=== PATIENT | male | born 1955 | race Caucasian/White ===

== ENCOUNTER 2016-07-30 22:32 | Inpatient (IN) | payer OTHER ==
[~2016-07-30] VITALS: Ht 177.8 cm; Wt 107.5 kg
[~2016-07-30 22:32] MED LIST: ESOM40CA41 PO; FURO40TA4 PO; INSU100V28 SUBQ; LISI-567 PO; LOVA10TA PO; METF-496 PO; MULT-1018 PO; NPH,100V11 SUBQ; TOP100 PO; UBID100C25 PO; WARF6TAB6 PO; [UNRECOGNIZED DRUG - OTHER]
[2016-07-30 22:35] VITALS: BP 156/82; PULSE 76; RESP 20; O2SAT 98
[2016-07-30 23:19] LABS: BASOPHILS % (AUTO) 0.8 % (0-3); EOSINOPHILS % (AUTO) 4.6 % (0-5); MONOCYTES % (AUTO) 14.1 % (4-12); Mean Corpuscular Hemoglobin 25.9 pg (27.0-35.0); Mean Corpuscular Volume 80.4 fL (81-100); NEUTROPHILS % (AUTO) 62.6 % (40-74); Platelet Count 76 bil/L (150-400)
--- NOTE | 2016-07-31 01:03 | ED.REPORT ---
HPI-Extremity Problem Lower Date of Service Jul 31, 2016 ED Provider: Nain Walker MD A 60 year old male with a history of insulin dependent diabetes, hypertension, aortic valve replacement, and quadruple bypass surgery presents to the ED complaining of right second toe pain and redness. The pt hit his foot against a ladder in 04/2016, and the toe has been painful since. It has been red, but became extremely red and swollen tonight. The pt denies vomiting or fever. He also denies any history of ulcer in his feet. Nursing Notes Stated Complaint: R FOOT/TOE INFECTION Chief Complaint: Extremity Trauma Nursing Notes Reviewed: Yes Allergies: Coded Allergies: No Known Allergies (Verified Allergy, Unknown, 10/05/15) Uncoded Allergies: crab/lobster (Allergy, Severe, Shortness of Breath, 10/05/15) Scheduled Esomeprazole Magnesium (Nexium) 40 Mg Capsule.dr 40 MG PO BID Furosemide (Furosemide) 40 Mg Tablet 80 MG PO HOLDING Gabapentin (Gabapentin) 100 Mg Capsule 100 MG PO DAILY Insulin Regular, Human (HUMulin-R U100 Insulin Vial) 100 Unit/1 Ml Vial 30-40 UNITS SUBQ BIDAC sliding scale Lisinopril (Lisinopril) 20 Mg Tablet 20 MG PO DAILY Lovastatin (Lovastatin) 10 Mg Tablet 10 MG PO Q48 HRS Metformin ER (Metformin ER) 1,000 Mg Tablet 1,000 MG PO BID Metoprolol Succinate ER (Toprol XL) 100 Mg Tabcr 100 MG PO BID Multivitamin (Multi Vitamin Daily) 1 Each Tablet 1 EACH PO DAILY NPH, Human Insulin Isophane (HUMulin-N U100 Insulin Vial) 100 Unit/1 Ml Vial 40 UNIT SUBQ BID-INSULIN General Time Seen by MD: 01:03 Chief Complaint Toe injury right 2 Hx Obtained From: Patient, Spouse Arrived By: Walk-in Onset Occurred: More than a week ago... Symptom Duration: Since onset Recent Healthcare: Recent doctor visit, Recent hospitalization Similar Sx Previous: No Past Medical History Past Medical History non-alcoholic cirrhosis Reports: Coronary artery disease, Diabetes mellitus (insulin dependent), Hyperlipidemia, Hypertension Past Surgical History colon repair after a tear, gastric lap band coronary bypass graft surgery Reports: CABG, Cholecystectomy Reports: Carpal tunnel, Gastric bypass Family History Reports: Coronary artery disease, Diabetes mellitus, Stroke Smoking History Never Smoker Social History Alcohol Use: Denies alcohol use Drug Use: Denies drug use Other Social History: Good social support, Lives alone 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 Ambulatory Status Independent Review of Systems Review of Systems Note: redness of right second toe Constitutional: Denies: Fever Musculoskeletal: Reports: Extremity pain (right foot), Extremity swelling, Denies: Neck pain Skin: Denies Rash Complete sys rev & neg: except as marked. Respiratory: Denies: Non-productive cough, Shortness of breath Cardiovascular: Denies: Chest pain GI: Denies: Abdominal pain, Nausea Physical Exam Initial Vital Signs Vital Signs (First) Date Time Temp Pulse Resp B/P Pulse Ox O2 Delivery O2 Flow Rate FiO2 07/30/16 22:35 36.7 76 20 156/82 98 Room Air Initial VS: Reviewed Lower Extremity / Pelvis / MS: Atraumatic, Full range of motion erythematous right second phalanx diffuse with purulent drainage over the mid phalanx General/Constitutional: Awake, Alert Respiratory / Chest: Atraumatic, Breath sounds = bilat, No respiratory distress harsh S2, left upper sternal border Cardiovascular: Heart rate NL, Regular rhythm, Heart sounds NL Skin: Atraumatic, Color NL, No rash, Warm, Dry Neurologic: Oriented X3, Speech NL, No motor deficits, No sensory deficits Head / Eyes: Atraumatic, Normocephalic, PERRL, EOMI ENT: Atraumatic, Airway patent, Mucous membranes moist Neck: Atraumatic, Supple, Full range of motion Abdomen: Atraumatic, Soft, Non-tender Back: Atraumatic, Full range of motion Upper Extremity / MS: Atraumatic, Full range of motion Psychiatric: Affect NL, Mood NL Interpretation & Diagnostics Lab Results Interpretation Result Diagram: 07/31/165 07/31/165 Test 07/30/16 23:08 Prothrombin Time 14.5sec (8.1-12.5) Prothromb Time International Ratio 1.35ratio Total Bilirubin 0.8mg/dL (0.0-1.2) Aspartate Amino Transf (AST/SGOT) 23U/L (0-50) Alanine Aminotransferase (ALT/SGPT) 12U/L (0-44) Alkaline Phosphatase 136U/L (25-160) Total Protein 8.2g/dL (6.4-8.4) Albumin 3.2g/dL (3.4-5.0) Hold Mcguire Top Tube Received (Received) X-Ray Interpretation Xray Interpretation: no osteomyelitis X-Ray Ordered: Foot right Interpretation / Wet Read by: Wet read ED physician Re-Eval/Medical Decision Med Decision/Clinical Course 60-year-old male history of diabetes, quadruple bypass, aortic valve replacement examining with right second toe infection times one day. Diffuse erythema, swelling, discharge. Discharge sent for culture. Discussed with podiatry Dr. Erazo who agreed with admission and will see patient in the morning. Patient was started on vancomycin and Zosyn. Blood cultures sent prior to antibiotics. Xray obtained. Source of Hx: Old records Re-Evaluation/Progress : Time of Eval: 01:03 Patient Status: Condition improved Re-Evaluation/Progress Note: Pt informed of the plan for admission during the initial interview. The pt understands and agrees with the plan. All questions are addressed at this time. Consultation #1: Referral / Consult Name: Vania Ulloa MD Consulted With: Hospitalist Call Returned at: 01:44 Service Line Layer: Agrees with eval, Agrees with plan, Accepts admit Note: Spoke with Dr. Ulloa, hospitalist, regarding pt's case. Dr. Ulloa agrees with the evaluation and agrees to admit the pt. Consultation #2: Referral / Consult Name: Myles Erazo DP Call Returned at: 01:47 Service Line Layer: Will see patient, Agrees with eval, Agrees with plan Note: Consulted with Dr. Erazo, podiatry, regarding pt's case. Dr. Erazo agrees with the evaluation and plan. He will see the pt in the morning. Counseled Regarding: Diagnosis, Lab results, Need for admission Discharge & Departure Impression: Primary Impression: Diabetic foot infection Disposition: ADMITTED TO HOSPITAL Discharge Condition All VS Reviewed: Yes Condition: Stable Referrals: Patt Dutta MD (PCP) Ruma Attestation Portions of this note were transcribed by Alireza Mayberry. I, Dr. Walker personally performed the history, physical exam and medical decision-making; I reviewed and confirmed the accuracy of the information in the transcribed note. Signed by: Ruma Flores, 07/31/2016 and 01:41. copies to: TraPatt MD, Ben M MD Jul 31, 2016 01:03 ALIREZA MAYBERRY Jul 31, 2016 01:53 8.2g/dL (6.4-8.4) Albumin 3.2g/dL (3.4-5.0) Hold Mcguire Top Tube Received (Received) X-Ray Interpretation Xray Interpretation: no osteomyelitis X-Ray Ordered: Foot right Interpretation / Wet Read by: Wet read ED physician Re-Eval/Medical Decision Med Decision/Clinical Course 60-year-old male history of diabetes, quadruple bypass, aortic valve replacement examining with right second toe infection times one day. Diffuse erythema, swelling, discharge. Discharge sent for culture. Discussed with podiatry Dr. Erazo who agreed with admission and will see patient in the morning. Patient was started on vancomycin and Zosyn. Blood cultures sent prior to antibiotics. Xray obtained. Source of Hx: Old records Re-Evaluation/Progress : Time of Eval: 01:03 Patient Status: Condition improved Re-Evaluation/Progress Note: Pt informed of the plan for admission during the initial interview. The pt understands and agrees with the plan. All questions are addressed at this time. Consultation #1: Referral / Consult Name: Vania Ulloa MD Consulted With: Hospitalist Call Returned at: 01:44 Service Line Layer: Agrees with eval, Agrees with plan, Accepts admit Note: Spoke with Dr. Ulloa, hospitalist, regarding pt's case. Dr. Ulloa agrees with the evaluation and agrees to admit the pt. Consultation #2: Referral / Consult Name: Myles Erazo DPM Call Returned at: 01:47 Service Line Layer: Will see patient, Agrees with eval, Agrees with plan Note: Consulted with Dr. Erazo, podiatry, regarding pt's case. Dr. Erazo agrees with the evaluation and plan. He will see the pt in the morning. Counseled Regarding: Diagnosis, Lab results, Need for admission Discharge & Departure Impression: Primary Impression: Diabetic foot infection Disposition: ADMITTED TO HOSPITAL Discharge Condition All VS Reviewed: Yes Condition: Stable Referrals: Patt Dutta MD (PCP) Scribe Attestation Portions of this note were transcribed by Alireza Mayberry. I, Dr. Walker personally performed the history, physical exam and medical decision-making; I reviewed and confirmed the accuracy of the information in the transcribed note. Signed by: Ruma Flores, 07/31/2016 and 01:41. copies to: Patt Dutta MD, Ben M MD Jul 31, 2016 01:03 ALIREZA MAYBERRY Jul 31, 2016 01:53
[2016-07-31] MEDS ORDERED: Alum-Mag Hydrox-Simeth 30 mL Suspension PO PRN (01:55)
[2016-07-31] MEDS ORDERED: Ondansetron 2 mg/mL 2 mL Inj IVPUSH PRN (01:55)
[2016-07-31] MEDS ORDERED: 0.9% Sodium Chloride 1,000 ML IV ONE (02:02)
[2016-07-31] MEDS ORDERED: Piperacillin-Tazo 3.375 Gm Inj 3.375 GM in Dextrose 5% Minibag Plus 50 ML IV ONE ×2 (02:05→07:00)
[2016-07-31] MEDS ORDERED: Vancomycin Dose per Pharmacist XX ONE (02:05)
[2016-07-31] MEDS ORDERED: Polyethylene Glycol (PEG) 17 Gm Powder PO PRN (02:20)
[2016-07-31 02:59] VITALS: BP 148/80; PULSE 76; RESP 20; O2SAT 97
[2016-07-31 03:19] VITALS: BP 170/91; PULSE 76; RESP 18; O2SAT 98
--- NOTE | 2016-07-31 03:21 | PCM.HPMED ---
Subjective Date of Service Jul 31, 2016 Primary Provider: Admitting Physician: Vania Ulloa MD Primary Care Physician: Patt Dutta MD Attending Physician: Vania Ulloa MD Chief Complaint: Infected Toe History of Present Illness: Castro is a 60 yo M with history of CAD s/p CABG, DM2 on insulin, non-alcoholic cirrhosis, fatty liver disease, and recent TAVR who presented to the ED with complaint of increase swelling and drainage from his right 2nd toe. Patient reports that he stubbed this toe on a ladder in April. He was evaluated at and given antibiotics then. He reports the toe has been baseline mildly red since and has not really bothered him, but today, while going to bed, he noticed that it was much more inflamed and there was yellowish drainage from the toe. He was worried, so he came in for evaluation. He denies any associated fevers, chills, acute pain in any other joints, CP, SOB, or constitutional symptoms. He had a recent TAVR for Aortic Stenosis. He also had a recent DVT of his left leg and that is why he is on Warfarin for anticoagulation. He had an MRI of his left hip yesterday for chronic hip pain and was told to withhold his Warfarin a week ago. In the ED, his vitals were stable and his CBC and CMP were per his baseline values. He had a right foot xray that was not significant for osteomyelitis per ED physician read. Dr. Erazo, podiatry, was consulted and patient was started on IV Vancomycin and Zosyn. Allergies Coded Allergies: No Known Allergies (Verified Allergy, Unknown, 10/05/15) Uncoded Allergies: crab/lobster (Allergy, Severe, Shortness of Breath, 10/05/15) Home Medications MEDICATIONS: 1. NPH insulin 30 units b.i.d. 2. Regular insulin 30-40 units before meals per sliding scale. 3. Lisinopril 20 mg daily. 4. Lovastatin 10 mg every 48 hours. 5. Toprol-XL 100 mg b.i.d. 6. Furosemide 40 mg daily. 7. Nexium 40 mg b.i.d. 8. Metformin 1000 mg b.i.d. 9. Gabapentin 600 mg at bedtime. 10. [place] 5-325 mg every 6 hours p.r.n. PMH 1. Type 2 diabetes, on metformin and insulin. 2. Hypertension. 3. Dyslipidemia. 4. Aortic stenosis, s/p transarterial valve replacement on January 18 at [facility]. 5. Chronic kidney disease. 6. Cirrhosis of the liver due to nonalcoholic fatty liver disease. 7. Chronic iron-deficiency anemia. 8. Coronary artery disease s/p CABG 9. Thrombocytopenia 10. EZ Surgical History 1. Four-vessel CABG in August 2008. 2. Exploratory laparotomy with partial colectomy in 2001 for perforated acute diverticulitis. 3. Incisional hernia repair in 2002. 4. Cholecystectomy in 1999. 5. TAVR on January 19, 2016 6. Gastric Lap Band Family History SOCIAL HISTORY: He lives in [place]. He does not drink alcohol. 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 Social History Hx Alcohol Use: No (every 6 months) Hx Substance Use: No Hx Tobacco Use: No Smoking Status: Never Smoker Living Arrangement: with Family Exam Vital Signs Vital Sign - Last Date Time Temp Pulse Resp B/P Pulse Ox O2 Delivery O2 Flow Rate FiO2 07/30/16 22:35 36.7 76 20 156/82 98 Room Air Exam Gen: Obese male in NAD, Alert and Oriented x3 Neck: Soft, non-tender, No JVD noted CV: RRR with systolic murmur noted Resp: CTAB, no w/r/c Abd: Obese, moderately distended, firm but non-tender, large midline scar. MSK: MS Grossly intact and equal Extremities: Erythema, swelling of right 2nd toe with serosanguineous discharge from pinpoint ulcer on dorsum Neuro: Decreased sensation in stocking distribution Psych: Appropriate mood and affect Lab and Diagnostics Result Diagram: 07/30/16230707/30/162307 Assessment & Plan Castro is a 60 yo M with history of CAD s/p CABG, DM2 on insulin, non-alcoholic cirrhosis, fatty liver disease, and recent TAVR who presented to the ED with complaint of acute increase in swelling and drainage from his right 2nd toe. Diabetic Foot Ulcer - Right 2nd Toe -Due to previous trauma -Dr. Erazo will assess patient in the morning -Non-weight bearing of RLE -IV Vancomycin and IV Zosyn started in the ED on 07/31/16 DM2, Insulin dependent, with neuropathy -Uncontrolled Diabetes. Last A1c in October was 10.3 -Will hold Metformin in anticipation of any surgical procedure -Will initiate Lispro High dose Sliding Scale. Patient at home is on Humulin N 30 units BID and Humulin R 30-40 units S/S S/P TAVR -Stable, currently on Warfarin for anticoagulation due to DVT after the procedure -Will hold Warfarin in anticipation of any procedure CAD s/p CABG -Stable -Will Continue Metoprolol Thrombocytopenia -Stable -Recent evaluation with Heme/Onc, Due to Cirrhosis and fatty liver disease Anti-nausea prn Pain Evaluation: Adequate Pain Control Resuscitation Status: CPR: Attempt Resuscitation Attending Statement Pt seen and examined by myself and agree with above plan. Delfino Martin DO Jul 31, 2016 02:50 Vania Ulloa MD Aug 01, 2016 06:11
[2016-07-31] MEDS: 0.9% Sodium Chloride 1,000 ML IV SCH ×4 (03:37→22:20)
--- NOTE | 2016-07-31 03:38 | NUR ---
admit note: pt. admitted for diabetic foot ulcer right second toe, red, shiny, inflamed, pt. has no c/o pain, blood glucose was 310 in ER.
[2016-07-31] MEDS ORDERED: Glucose 40% Oral Gel 15 Gm Tube PO PRN (03:40)
[2016-07-31] MEDS ORDERED: HYDROmorphone 0.5 mg/0.5 mL iSecure Syringe IVPUSH PRN (03:40)
[2016-07-31 04:01] LABS: INR 1.35 ratio
[2016-07-31] MEDS ORDERED: GABA-500 PO (04:22)
[2016-07-31 06:03] LABS: BASOPHILS % (AUTO) 0.7 % (0-3); EOSINOPHILS % (AUTO) 5.4 % (0-5); MONOCYTES % (AUTO) 15.6 % (4-12); Mean Corpuscular Hemoglobin 25.6 pg (27.0-35.0); Mean Corpuscular Volume 80.6 fL (81-100); NEUTROPHILS % (AUTO) 62.7 % (40-74); Platelet Count 85 bil/L (150-400)
[2016-07-31] MEDS: Insulin GLARgine 100 Unit/mL Syringe SUBQ SCH ×2 (08:19→21:47)
[2016-07-31] MEDS: Insulin LISPRO 300 Unit/3 mL Inj SUBQ SCH ×4 (08:19→21:47)
[2016-07-31 08:32] VITALS: BP 130/75; PULSE 87; RESP 18; O2SAT 96
[2016-07-31 08:53] LABS: APPEARANCE,URINE CLEAR (CLEAR,HAZY); COLOR,URINE YELLOW (YELLOW)
[2016-07-31 08:58] LABS: OCCULT BLOOD,URINE SMALL (NEGATIVE); PH,URINE 5.5 (5.0-8.0); UROBILINOGEN,URINE NORMAL (NORMAL)
--- NOTE | 2016-07-31 10:01 | DRSVH ---
PROCEDURE: X-RAY RIGHT FOOT COMPLETE, MINIMUM THREE VIEWS ([id number]) INDICATIONS: wound TECHNIQUE: 3 views of the foot were acquired. COMPARISON: None. FINDINGS: Bones: No fractures or dislocations. Degenerative change at the first MTP joint is present, and als o at the first interphalangeal joint. The area of current clinical concern is at the third digit. N o suspicious bony lesions. Soft tissues: No tibiotalar joint effusion. Achilles tendon appears normal. IMPRESSION: The patient reports possible discharge from third digit, and no underlying foreign body o r abscess/osteomyelitis is found. 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 Dictated by: Trevor Yanez M.D. on 07/31/2016 at 9:58 Approved by: Trevor Yanez M.D. on 07/31/2016 at 9:58
[2016-07-31] MEDS: Vancomycin Dose per Pharmacist XX SCH (10:12)
--- NOTE | 2016-07-31 13:00 | PCM.CHPPOD ---
Subjective Date of service Jul 31, 2016 History of Present Illness 60-year-old neuropathic diabetic male is evaluated while resting comfortably in bed with abscess and cellulitis of the right second digit. Patient states that he has been diabetic for many years but does not routinely follow up with a mental health program director. Patient states that over the past 48 hours he has noted significant color change in his right second toe and there has been some pus emanating from the second digit since yesterday. Patient denies ever having a previous ulceration or issue with either of his feet. Patient states that he does not routinely check his blood sugar however when it does it usually in the high 100s to low 200s. He denies any pain associated with his right foot x- rays taken upon presentation to the emergency department are nonconclusive for the presence of bone infection Allergy Allergies: Coded Allergies: No Known Allergies (Verified Allergy, Unknown, 10/05/15) Uncoded Allergies: crab/lobster (Allergy, Severe, Shortness of Breath, 10/05/15) Medications Esomeprazole Magnesium (Nexium) 40 Mg Capsule.dr 40 MG PO BID Furosemide (Furosemide) 40 Mg Tablet 80 MG PO HOLDING Gabapentin (Gabapentin) 100 Mg Capsule 100 MG PO DAILY Insulin Regular, Human (HUMulin-R U100 Insulin Vial) 100 Unit/1 Ml Vial 30-40 UNITS SUBQ BIDAC sliding scale Lisinopril (Lisinopril) 20 Mg Tablet 20 MG PO DAILY Lovastatin (Lovastatin) 10 Mg Tablet 10 MG PO Q48 HRS Metformin ER (Metformin ER) 1,000 Mg Tablet 1,000 MG PO BID Metoprolol Succinate ER (Toprol XL) 100 Mg Tabcr 100 MG PO BID Multivitamin (Multi Vitamin Daily) 1 Each Tablet 1 EACH PO DAILY NPH, Human Insulin Isophane (HUMulin-N U100 Insulin Vial) 100 Unit/1 Ml Vial 40 UNIT SUBQ BID-INSULIN Past Medical History Surgeries: Yes (aortic valve replacement, quad bypass, angioplasty, colon resection, gall b) Medical History: Surgical History: Social History Hx Alcohol Use: No Hx Substance Use: No Hx Tobacco Use: No Smoking Status: Never Smoker Podiatry Consult Exam Vital Signs Vital Sign - Last Date Time Temp Pulse Resp B/P Pulse Ox O2 Delivery O2 Flow Rate FiO2 07/31/16 08:32 36.5 87 18 130/75 96 Room Air Result Diagram: 07/31/16 0455 07/31/16 0455 Lab Test 07/30/16 23:08 07/31/16 03:00 07/31/16 03:35 07/31/16 04:00 Prothrombin Time 14.5sec (8.1-12.5) Prothromb Time International Ratio 1.35ratio Total Bilirubin 0.8mg/dL (0.0-1.2) Aspartate Amino Transf (AST/SGOT) 23U/L (0-50) Alanine Aminotransferase (ALT/SGPT) 12U/L (0-44) Alkaline Phosphatase 136U/L (25-160) Total Protein 8.2g/dL (6.4-8.4) Albumin 3.2g/dL (3.4-5.0) Hold Mcguire Top Tube Received (Received) Urine Color Yellow (YELLOW) Urine Appearance Clear (CLEAR,HAZY) Urine pH 5.5 (5.0-8.0) Urine Specific [place] 1.025 (1.003-1.035) Urine Protein Tracemg/dL (NEG,TRACE) Urine Glucose (UA) 500mg/dL (NEGATIVE) Urine Ketones Tracemg/dL (NEGATIVE) Urine Occult Blood Small (NEGATIVE) Urine Nitrite Negative (NEGATIVE) Urine Bilirubin Negative (NEGATIVE) Urine Urobilinogen Normalmg/dL (NORMAL) Urine Leukocyte Esterase Negative (NEGATIVE) Urine RBC 0-2/hpf (0-2) Urine WBC 0-5/hpf (0-5) Urine Epithelial Cells Occasional/hpf (NONE-MOD) Urine Crystals None seen (NONE SEEN) Urine Bacteria None/hpf (NONE-FEW) Urine Hyaline Casts None/lpf (NONE) Urine Granular Casts None seen (NONE SEEN) Urine Waxy Casts None seen (NONE SEEN) Urine Red Blood Cell Casts None seen (NONE SEEN) Urine White Blood Cell Casts None seen (NONE SEEN) Urine Mucus None seen (None Seen) Urine Trichomonas None seen (NONE SEEN) Urine Yeast None (NONE SEEN) Urinalysis Comment Urine Culture Reflexed Not indicated Hold Urine Received (Received) Test 07/31/16 04:55 White Blood Count 5.6th/mm3 (3.8-10.1) Red Blood Count 3.71mil/mm3 (4.40-5.80) Hemoglobin 9.5g/dL (13.8-17.2) Hematocrit 29.9% (41.0-50.0) Mean Corpuscular Volume 80.6fL (81-100) Mean Corpuscular Hemoglobin 25.6pg (27.0-35.0) Mean Corpuscular Hemoglobin Concent 31.8% (32.0-37.0) Red Cell Distribution Width 17.9% (12.3-15.4) Platelet Count 85bil/L (150-400) Neutrophils (%) (Auto) 62.7% (40-74) Lymphocytes (%) (Auto) 15.4% (14-46) Monocytes (%) (Auto) 15.6% (4-12) Eosinophils (%) (Auto) 5.4% (0-5) Basophils (%) (Auto) 0.7% (0-3) Sodium Level 136mEq/L (134-144) Potassium Level 4.9mEq/L (3.5-5.2) Chloride Level 94mEq/L (97-108) Carbon Dioxide Level 25mmol/L (18-29) Blood Urea Nitrogen 18mg/dL (8-27) Creatinine 1.20mg/dL (0.76-1.27) Estimat Glomerular Filtration Rate 65mL/min (>59) Glucose Level 338mg/dL (60-99) Calcium Level 8.0mg/dL (8.5-10.1) Exam General: Alert, Oriented X3, Cooperative, No Acute Distress Neuro: Strength at 5/5 x4 ext, Other (decreased epicritic sensation) Lower Extremities: Right: Edema localized Bilateral: Extremity pink Extremity warm Lower Extremity Pulses: Palpable: Left Dorsalis Pedis Left Posterior Tibal Right Dorsalis Pedis Right Posterior Tibal Podiatry WOUND : Wound Location/Description Right second digit proximal interphalangeal joint medial ulceration measures 2 mm x 2 mm with underlying purulent abscess mild malodor and erythema encompassing the entirety of the second toe. There is no exposed bone or tendon. No other open ulcerations are present Chronic dry scaly skin bilateral lower extremity Assessment & Plan Assessment Abscess/cellulitis right second digit Problems: Plan Detailed evaluation at bedside today. Abscess was noted of the right second proximal interphalangeal joint. The right second digit was prepped utilizing Betadine a stab incision was made with a #11 blade purulent drainage was noted approximately 2 mL in total. Wound cultures were taken. This wound was then copiously flushed with large amounts of normal saline until no further purulent drainage was identified. This wound was then packed with 1/4 inch iodoform packing gauze and dressed with dry sterile gauze Kerlix and a loosely applied Carlitos bandage. Continue current antibiotic therapy, consider infectious disease consultation once wound cultures have returned for outpatient antibiotic recommendation No immediate need for surgical intervention as there are no clinical signs of osteomyelitis however osteomyelitis is still of significant concern due to the proximity of this abscess to the bone Partial weightbearing to the right heel Podiatry will continue to follow for daily dressing changes. Patient will likely be stable for discharge to outpatient care within the next 24-48 hours. Robby Martinez DPM Jul 31, 2016 13:00
[2016-07-31 13:13] VITALS: BP 137/73; PULSE 75; RESP 18; O2SAT 97
--- NOTE | 2016-07-31 13:14 | PCM.CONPHA ---
Assessment/Plan Assessment/Plan Pharmacy Kinetic Dosing Vancomycin Indication: Osteomyelitis of toe Vanc goal trough: 15-20 mcg/mL Pt wt: 107.5 kg Other ABX: Zosyn Cultures: Blood = Pending SCr: 66.75 mg/dL Assessment/Plan: - Loading dose of Vancomycin 2250 mg given in ED (20mg/kg dosing) -Will continue Vancomycin 1,500 mg Q12H (15 mg/kg dosing) with trough scheduled prior to 4th dose on 08/01 @1600 Pharmacy appreciates consult and will continue to monitor. Monie Lares PharmD Jul 31, 2016 13:14
--- NOTE | 2016-07-31 16:18 | NUR ---
Social Work Brief Note: EMR reviewed. Patient is a 60 year old made admitted on 07/31/16 for diabetic foot ulcer. Patient resides in [facility] with Edith, . Patient payer as [facility] Med plan. Patient independent with needs. Per report in rounds, patient on abx and podiatry to follow. ID also consulted. Possible amputation planned. SW to follow. PLAN: Home with , pending clinical course. SW to follow with ID plans for abx and podiatry to determine if HHC needed for any wound care related needs for toe. SW to follow. Becky CHRISTIAN
[2016-07-31] MEDS ORDERED: Vancomycin Serum Trough XX ONE (16:30)
[2016-07-31 18:41] VITALS: BP 184/84; PULSE 69; RESP 18; O2SAT 97
[2016-07-31] MEDS: Piper-Tazo 3.375 Gm/50 mL D5W Minibag Plus - Q8H over 4 hrs IV SCH ×4 (21:44→22:11)
[2016-07-31 22:45] VITALS: BP 145/69; PULSE 80; RESP 18; O2SAT 93
[2016-08-01 06:15] VITALS: BP 154/74; PULSE 77; RESP 16; O2SAT 95
[2016-08-01] MEDS: Piper-Tazo 3.375 Gm/50 mL D5W Minibag Plus - Q8H over 4 hrs IV SCH ×4 (08:07→17:52)
[2016-08-01] MEDS: Vancomycin Dose per Pharmacist XX SCH (08:30)
[2016-08-01 08:51] VITALS: BP 171/97; PULSE 75; RESP 17; O2SAT 96
[2016-08-01] MEDS: Insulin GLARgine 100 Unit/mL Syringe SUBQ SCH (10:04)
[2016-08-01] MEDS: Insulin LISPRO 300 Unit/3 mL Inj SUBQ SCH (10:05)
[2016-08-01 13:20] VITALS: BP 163/84; PULSE 79; RESP 17; O2SAT 96
[2016-08-01] MEDS: MeTOProlol XL 50 mg ER24 Tablet PO SCH ×2 (13:41→22:11)
[2016-08-01] MEDS: Insulin Human REGular 300 Unit/3 mL Inj SUBQ SCH ×3 (13:42→22:00)
--- NOTE | 2016-08-01 14:36 | PCM.PNMED ---
Subjective Date of Service Aug 01, 2016 Subjective denies any pain or discomfort. denies any new issues/complaints Exam Vital Signs Vital Sign - Last Date Time Temp Pulse Resp B/P Pulse Ox O2 Delivery O2 Flow Rate FiO2 08/01/16 13:20 37.2 79 17 163/84 96 Room Air Intake and Output 07/31/16 07/31/16 08/01/16 Cumulative From/Thru 15:00 23:00 07:00 07/30/16 22:35 - 08/01/16 06:05 Intake Total 2375 ml 1348 ml 3723 ml Output Total 125 ml 400 ml 525 ml Balance -125 ml 1975 ml 1348 ml 3198 ml Intake Oral 500 ml 500 ml IV Total 1875 ml 1348 ml 3223 ml Output Urine Total 125 ml 400 ml 525 ml Urine/Stool Mix 0 ml 0 ml General: Alert, Cooperative, No Acute Distress Eyes: Scleral Anicteric Mouth: Mucous Membr Moist/[place] Neck: Supple Chest & Lungs: Chest Wall Normal, Clear to auscultation & percussion Cardiovascular: Regular Rate/Rhythm Abdomen: Non-tender, Non-distended, Normoactive bowel tones, Soft Extremities: Other (right foot in dressing) Neurological: Grossly Neurologically Intact, Normal Speech IVs and Medications Medications Reviewed: Medications were reviewed in detail Lab and Diagnostics Result Diagram: 07/31/1645407/31/16454 Assessment & Plan 60 yo M with history of CAD s/p CABG, DM2 on insulin, non-alcoholic cirrhosis, fatty liver disease, and recent TAVR who presented to the ED with complaint of acute increase in swelling and drainage from his right 2nd toe. # Acute on chronic diabetic Foot Ulcer - Right 2nd Toe - post I&D of abscess of the right second proximal interphalangeal joint on 07/31 - appreciate podiatry consult. will f/u w/ recs - c/w empiric IV Vancomycin and IV Zosyn started in the ED on 07/31/16 - f/u pending cultures # DM2, Insulin dependent, with neuropathy - Uncontrolled Diabetes. Last A1c in October was 10.3 - Continue to hold Metformin - Resume home dose Insulin - c/w Insulin Sliding Scale. # S/P TAVR - Stable, currently on Warfarin for anticoagulation due to DVT after the procedure - Resume Warfarin when OK by podiatry - c/w Lovenox while off of Warfarin and INR sub-therapeutic # CAD s/p CABG - Stable - Continue Metoprolol # Thrombocytopenia. Chronic. - Stable - Recent evaluation with Heme/Onc, Due to Cirrhosis and fatty liver disease Dispo: 1-2 days pending culture results and further podiatry recs. Resuscitation Status: CPR: Attempt Resuscitation Time spent 30 min Waqar Crawley Aug 01, 2016 14:36
[2016-08-01] MEDS: Pantoprazole 40 mg ER24 Tablet PO SCH (15:46)
--- NOTE | 2016-08-01 18:03 | PCM.PNPOD ---
Subjective Date of Service: Aug 01, 2016 Visit Information: Reason for Visit Diabetic Foot Infection Surgery/Surgery Date Post-Op Day # Date of Admission: Jul 31, 2016 at 02:15 Hospital Day # Subjective: The patient is sitting up in bed, resting comfortably. He is not in any discomfort or distress. He like to go home. Postop General: No Complaints Objective Vital Sign - Last Date Time Temp Pulse Resp B/P Pulse Ox O2 Delivery O2 Flow Rate FiO2 08/01/16 13:20 37.2 79 17 163/84 96 Room Air Intake and Output 07/31/16 07/31/16 08/01/16 Cumulative From/Thru 15:00 23:00 07:00 07/30/16 22:35 - 08/01/16 06:05 Intake Total 2375 ml 1348 ml 3723 ml Output Total 125 ml 400 ml 525 ml Balance -125 ml 1975 ml 1348 ml 3198 ml Intake Oral 500 ml 500 ml IV Total 1875 ml 1348 ml 3223 ml Output Urine Total 125 ml 400 ml 525 ml Urine/Stool Mix 0 ml 0 ml Result Diagram: 07/31/16 0455 07/31/16 0455 Lab Test 07/30/16 23:08 07/31/16 03:00 07/31/16 03:35 07/31/16 04:00 Prothrombin Time 14.5sec (8.1-12.5) Prothromb Time International Ratio 1.35ratio Total Bilirubin 0.8mg/dL (0.0-1.2) Aspartate Amino Transf (AST/SGOT) 23U/L (0-50) Alanine Aminotransferase (ALT/SGPT) 12U/L (0-44) Alkaline Phosphatase 136U/L (25-160) Total Protein 8.2g/dL (6.4-8.4) Albumin 3.2g/dL (3.4-5.0) Hold Mcguire Top Tube Received (Received) Hemoglobin A1c 8.4% (4.8-5.6) Urine Color Yellow (YELLOW) Urine Appearance Clear (CLEAR,HAZY) Urine pH 5.5 (5.0-8.0) Urine Specific [place] 1.025 (1.003-1.035) Urine Protein Tracemg/dL (NEG,TRACE) Urine Glucose (UA) 500mg/dL (NEGATIVE) Urine Ketones Tracemg/dL (NEGATIVE) Urine Occult Blood Small (NEGATIVE) Urine Nitrite Negative (NEGATIVE) Urine Bilirubin Negative (NEGATIVE) Urine Urobilinogen Normalmg/dL (NORMAL) Urine Leukocyte Esterase Negative (NEGATIVE) Urine RBC 0-2/hpf (0-2) Urine WBC 0-5/hpf (0-5) Urine Epithelial Cells Occasional/hpf (NONE-MOD) Urine Crystals None seen (NONE SEEN) Urine Bacteria None/hpf (NONE-FEW) Urine Hyaline Casts None/lpf (NONE) Urine Granular Casts None seen (NONE SEEN) Urine Waxy Casts None seen (NONE SEEN) Urine Red Blood Cell Casts None seen (NONE SEEN) Urine White Blood Cell Casts None seen (NONE SEEN) Urine Mucus None seen (None Seen) Urine Trichomonas None seen (NONE SEEN) Urine Yeast None (NONE SEEN) Urinalysis Comment Urine Culture Reflexed Not indicated Hold Urine Received (Received) Test 07/31/16 04:55 08/01/16 15:40 White Blood Count 5.6th/mm3 (3.8-10.1) Red Blood Count 3.71mil/mm3 (4.40-5.80) Hemoglobin 9.5g/dL (13.8-17.2) Hematocrit 29.9% (41.0-50.0) Mean Corpuscular Volume 80.6fL (81-100) Mean Corpuscular Hemoglobin 25.6pg (27.0-35.0) Mean Corpuscular Hemoglobin Concent 31.8% (32.0-37.0) Red Cell Distribution Width 17.9% (12.3-15.4) Platelet Count 85bil/L (150-400) Neutrophils (%) (Auto) 62.7% (40-74) Lymphocytes (%) (Auto) 15.4% (14-46) Monocytes (%) (Auto) 15.6% (4-12) Eosinophils (%) (Auto) 5.4% (0-5) Basophils (%) (Auto) 0.7% (0-3) Sodium Level 136mEq/L (134-144) Potassium Level 4.9mEq/L (3.5-5.2) Chloride Level 94mEq/L (97-108) Carbon Dioxide Level 25mmol/L (18-29) Blood Urea Nitrogen 18mg/dL (8-27) Creatinine 1.20mg/dL (0.76-1.27) Estimat Glomerular Filtration Rate 65mL/min (>59) Glucose Level 338mg/dL (60-99) Calcium Level 8.0mg/dL (8.5-10.1) Vancomycin Level Trough 16.6mcg/mL Diagnostics Microbiology specimen of the patient's right second toe abscess from yesterday shows Staphylococcus aureus, susceptibility is pending. Exam General: Alert, Oriented X3, Cooperative, No Acute Distress Lower Extremities: Right: Edema localized Bilateral: Extremity pink Extremity warm (confined to the second toe on the right) Lower Extremity Pulses: Palpable: Left Dorsalis Pedis Left Posterior Tibal Right Dorsalis Pedis Right Posterior Tibal Podiatry WOUND : Wound Location/Description Right medial second toe ulceration is consistent with a stab wound opened by Dr. Shelby hendricks yesterday. It is likely that this is a result of a callus between the second and first toes. There was a small amount of purulence expressed today after the packing was removed. A sending erythema is present approximately 2-3-4 cm at the second metatarsal head. The bone is not exposed, but it is very close to the middle phalanx on the medial side. Since the size of the abscess was so large, underlying osteomyelitis made very well be part of the overall picture. Assessment & Plan Problems: (1) Diabetic foot ulcer Qualifiers: Diabetes mellitus type: type 2 Laterality: right Qualified Code: E11.621 - Type 2 diabetes mellitus with foot ulcer Plan: The patient's open ulceration was treated with normal saline irrigation, packed with iodoform gauze and backed with normal saline moistened gauze, dry gauze, Kerlix, Carlitos wrap to the ankle. The patient will be seen again tomorrow for a dressing change and should be able to go home on oral antibiotics once susceptibility is a ready. She should be seen by me or Dr. Martinez next week, either in our clinic for wound care center. Status: Acute ICD Code: E11.621 Brit Cummings DPM Aug 01, 2016 18:03
[2016-08-01] MEDS: Insulin Human REGular (HUMulin-R) 100 Unit/mL 10 mL SUBQ SCH (18:57)
[2016-08-01 19:30] VITALS: BP 166/86; PULSE 76; RESP 18; O2SAT 96
[2016-08-01 20:15] VITALS: BP 165/79; PULSE 81; RESP 20; O2SAT 96
[2016-08-01 22:06] VITALS: BP 153/74; PULSE 81
[2016-08-01] MEDS: Insulin Human NPH 100 Unit/mL 3 mL Inj SUBQ SCH (22:13)
--- NOTE | 2016-08-01 22:35 | NUR ---
HS insulin dosing pts HS BG was 253 pt stating he would only take 30units of Humulin N not 40units also he would not take Humulin R at HS at all. followed pts instructions. gave 30units Humulin N and no Humulin R.
[2016-08-02 00:28] VITALS: BP 130/67; PULSE 83; RESP 20; O2SAT 94
[2016-08-02] MEDS: Piper-Tazo 3.375 Gm/50 mL D5W Minibag Plus - Q8H over 4 hrs IV SCH ×4 (00:42→08:31)
--- NOTE | 2016-08-02 00:44 | NUR ---
IV zosyn pts zosyn got behind r/t procedure, per pharmacy give next dose hour and half late (around 0030) then next dose half hour late then will be back on schedule.
[2016-08-02 04:25] VITALS: BP 163/84; PULSE 79; RESP 18; O2SAT 95
[2016-08-02 06:13] LABS: BASOPHILS % (AUTO) 0.7 % (0-3); EOSINOPHILS % (AUTO) 3.7 % (0-5); MONOCYTES % (AUTO) 16.4 % (4-12); Mean Corpuscular Hemoglobin 25.1 pg (27.0-35.0); Mean Corpuscular Volume 80.3 fL (81-100); Platelet Count 67 bil/L (150-400)
[2016-08-02 06:27] LABS: INR 1.43 ratio
[2016-08-02] MEDS: Insulin Human REGular 300 Unit/3 mL Inj SUBQ SCH (07:30)
[2016-08-02] MEDS: Insulin Human NPH 100 Unit/mL 3 mL Inj SUBQ SCH (08:30)
[2016-08-02] MEDS: Insulin Human REGular (HUMulin-R) 100 Unit/mL 10 mL SUBQ SCH (08:30)
[2016-08-02] MEDS: Pantoprazole 40 mg ER24 Tablet PO SCH (08:31)
[2016-08-02] MEDS: MeTOProlol XL 50 mg ER24 Tablet PO SCH (08:31)
[2016-08-02 08:58] VITALS: BP 164/88; PULSE 84; RESP 18; O2SAT 97
[2016-08-02] MEDS: Vancomycin Dose per Pharmacist XX SCH (09:04)
[2016-08-02 12:34] VITALS: BP 125/69; PULSE 77; RESP 18; O2SAT 99
[2016-08-02] MEDS ORDERED: AMOX-366 PO (13:08)
--- NOTE | 2016-08-02 13:23 | PCM.DIMED ---
Discharge Instructions Date of Service Aug 02, 2016 Dates of Hospitalization Jul 31, 2016 at 02:15 Discharge Diagnosis Discharge Diagnosis # Acute on chronic diabetic foot ulcer - Right 2nd Toe with MSSA - post I&D of abscess of the right second proximal interphalangeal joint on 07/31 # Diabtes Mellitus Type 2 with associated neuropathy # History of DVT # Coronary artery disease (CAD) post history of CABG # Thrombocytopenia. Chronic. - possible hepatic cirrhosis and fatty liver disease Diet Low fat, Low Sodium, Heart Healthy, Diabetic Activity No restrictions Call your provider Fever or Chills, Shortness of breath, Bleeding, Chest pain, Excessive diarrhea Patient Instructions Seek immediate medical attention if any new or worsening signs or symptoms occur. Keep the dressing clean and dry. Follow-up plan 1. Followup with podiatry (Dr. Martinez) on Saturday08/06/16 2. Followup with primary care provider in 5-7 days Follow-up Provider: Robby Martinez DPM Provider: Patt Dutta MD Follow-up in: 1 week Waqar Crawley Aug 02, 2016 13:22
--- NOTE | 2016-08-02 13:28 | PCM.DC.MED ---
Discharge Summary Date of Service Aug 02, 2016 Dates of Hospitalization Date of Hospital Admission Jul 31, 2016 at 02:15 Date of Discharge: Aug 02, 2016 Providers: Admitting Physician: Vania Ulloa MD Primary Care Physician: Patt Dutta MD Attending Physician: Vania Ulloa MD Diagnosis at Time of Discharge Diagnosis at Time of Discharge # Acute on chronic diabetic foot ulcer - Right 2nd Toe with MSSA - post I&D of abscess of the right second proximal interphalangeal joint on 07/31 # Diabtes Mellitus Type 2 with associated neuropathy # History of DVT # Coronary artery disease (CAD) post history of CABG # Thrombocytopenia. Chronic. - possible hepatic cirrhosis and fatty liver disease Procedures XRay, CTs & MRIs Date of Service: 07/30/16 2242 PROCEDURE: X-RAY RIGHT FOOT COMPLETE, MINIMUM THREE VIEWS ([id number]) IMPRESSION: The patient reports possible discharge from third digit, and no underlying foreign body or abscess/osteomyelitis is found. 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 Dictated by: Trevor Yanez M.D. on 07/31/2016 at 9:58 Approved by: Trevor Yanez M.D. on 07/31/2016 at 9:58 Brief History 60 yo M with history of CAD s/p CABG, DM2 on insulin, non-alcoholic cirrhosis, fatty liver disease, and recent TAVR who presented to the ED with complaint of acute increase in swelling and drainage from his right 2nd toe. Hospital Course # Acute on chronic diabetic Foot Ulcer - Right 2nd Toe - post I&D of abscess of the right second proximal interphalangeal joint on 07/31 - appreciate podiatry consult. will f/u w/ recs - initially treated with empiric IV Vancomycin and IV Zosyn started in the ED on 07/31/16 - wound cultures back showing MSSA - per recommendation by Dr. Juan falcon d/c pt on 2 weeks of PO Augmentin with plan w/ podiatry this coming Saturday # DM2, Insulin dependent, with neuropathy - Resume home meds on discharge with plan f/u w/ PCP # S/P TAVR # History of DVT post TAVR. Finished full 4 months of Coumadin treatment and was already stopped by patient prior to presentation. # CAD s/p CABG - Stable # Thrombocytopenia. Chronic. - Stable - Recent evaluation with Heme/Onc, Due to Cirrhosis and fatty liver disease by day of d/c lungs CTA bilat. right foot in dressing and seen and evaluated by podiatry as well. Exam Vital Signs (Last) Date Time Temp Pulse Resp B/P Pulse Ox O2 Delivery O2 Flow Rate FiO2 08/02/16 12:34 36.4 77 18 125/69 99 Room Air Test 07/30/16 23:08 07/31/16 03:00 07/31/16 03:35 07/31/16 04:00 Total Bilirubin 0.8mg/dL (0.0-1.2) Aspartate Amino Transf (AST/SGOT) 23U/L (0-50) Alanine Aminotransferase (ALT/SGPT) 12U/L (0-44) Alkaline Phosphatase 136U/L (25-160) Total Protein 8.2g/dL (6.4-8.4) Albumin 3.2g/dL (3.4-5.0) Hold Mcguire Top Tube Received (Received) Hemoglobin A1c 8.4% (4.8-5.6) Urine Color Yellow (YELLOW) Urine Appearance Clear (CLEAR,HAZY) Urine pH 5.5 (5.0-8.0) Urine Specific [place] 1.025 (1.003-1.035) Urine Protein Tracemg/dL (NEG,TRACE) Urine Glucose (UA) 500mg/dL (NEGATIVE) Urine Ketones Tracemg/dL (NEGATIVE) Urine Occult Blood Small (NEGATIVE) Urine Nitrite Negative (NEGATIVE) Urine Bilirubin Negative (NEGATIVE) Urine Urobilinogen Normalmg/dL (NORMAL) Urine Leukocyte Esterase Negative (NEGATIVE) Urine RBC 0-2/hpf (0-2) Urine WBC 0-5/hpf (0-5) Urine Epithelial Cells Occasional/hpf (NONE-MOD) Urine Crystals None seen (NONE SEEN) Urine Bacteria None/hpf (NONE-FEW) Urine Hyaline Casts None/lpf (NONE) Urine Granular Casts None seen (NONE SEEN) Urine Waxy Casts None seen (NONE SEEN) Urine Red Blood Cell Casts None seen (NONE SEEN) Urine White Blood Cell Casts None seen (NONE SEEN) Urine Mucus None seen (None Seen) Urine Trichomonas None seen (NONE SEEN) Urine Yeast None (NONE SEEN) Urinalysis Comment Urine Culture Reflexed Not indicated Hold Urine Received (Received) Test 07/31/16 04:55 08/01/16 15:40 08/02/16 05:00 08/02/16 05:50 Sodium Level 136mEq/L (134-144) Potassium Level 4.9mEq/L (3.5-5.2) Chloride Level 94mEq/L (97-108) Carbon Dioxide Level 25mmol/L (18-29) Blood Urea Nitrogen 18mg/dL (8-27) Creatinine 1.20mg/dL (0.76-1.27) Estimat Glomerular Filtration Rate 65mL/min (>59) Glucose Level 338mg/dL (60-99) Calcium Level 8.0mg/dL (8.5-10.1) Vancomycin Level Trough 16.6mcg/mL Prothrombin Time 15.4sec (8.1-12.5) Prothromb Time International Ratio 1.43ratio Activated Partial Thromboplast Time 34.2sec (22.8-33.0) White Blood Count 4.3th/mm3 (3.8-10.1) Red Blood Count 3.71mil/mm3 (4.40-5.80) Hemoglobin 9.3g/dL (13.8-17.2) Hematocrit 29.8% (41.0-50.0) Mean Corpuscular Volume 80.3fL (81-100) Mean Corpuscular Hemoglobin 25.1pg (27.0-35.0) Mean Corpuscular Hemoglobin Concent 31.2% (32.0-37.0) Red Cell Distribution Width 17.8% (12.3-15.4) Platelet Count 67bil/L (150-400) Neutrophils (%) (Auto) 65.0% (40-74) Lymphocytes (%) (Auto) 14.0% (14-46) Monocytes (%) (Auto) 16.4% (4-12) Eosinophils (%) (Auto) 3.7% (0-5) Basophils (%) (Auto) 0.7% (0-3) Discharge Medications Discharge Medications Amoxicillin/Clav K 875-125 mg (Augmentin 875-125 mg) 1 Each Tablet 1 TABLET PO BID Prescribed by: INDRA PARDO MD Esomeprazole Magnesium (Nexium) 40 Mg Capsule.dr 40 MG PO BID (Reported) Furosemide (Furosemide) 40 Mg Tablet 80 MG PO HOLDING (Reported) Gabapentin (Gabapentin) 100 Mg Capsule 100 MG PO DAILY (Reported) Insulin Regular, Human (HUMulin-R U100 Insulin Vial) 100 Unit/1 Ml Vial 30-40 UNITS SUBQ BIDAC (Reported) sliding scale Lisinopril (Lisinopril) 20 Mg Tablet 20 MG PO DAILY Prescribed by: ROGER GONZALEZ MD Lovastatin (Lovastatin) 10 Mg Tablet 10 MG PO Q48 HRS (Reported) Metformin ER (Metformin ER) 1,000 Mg Tablet 1,000 MG PO BID (Reported) Metoprolol Succinate ER (Toprol XL) 100 Mg Tabcr 100 MG PO BID (Reported) Multivitamin (Multi Vitamin Daily) 1 Each Tablet 1 EACH PO DAILY (Reported) NPH, Human Insulin Isophane (HUMulin-N U100 Insulin Vial) 100 Unit/1 Ml Vial 40 UNIT SUBQ BID-INSULIN (Reported) Followup Plan Disposition: Home Follow-up plan 1. Followup with podiatry (Dr. Martinez) on Saturday08/06/16 2. Followup with primary care provider in 5-7 days Discharge Diet: Low fat, Low Sodium, Heart Healthy, Diabetic Discharge Activity: No restrictions Patient Instructions Seek immediate medical attention if any new or worsening signs or symptoms occur. Keep the dressing clean and dry. Follow-up Provider: Robby Martinez DPM Provider: Patt Dutta MD Follow-up in: 1 week Time spent 34 min copies to: Patt Dutta MD; Robby Martinez DPM, Masoud Aug 02, 2016 13:27
--- NOTE | 2016-08-02 13:56 | PCM.PNPOD ---
Subjective Date of Service: Aug 02, 2016 Date of Service: Aug 02, 2016 Visit Information: Reason for Visit Diabetic Foot Infection Surgery/Surgery Date Post-Op Day # Date of Admission: Jul 31, 2016 at 02:15 Hospital Day # Subjective: 60-year-old neuropathic diabetic male evaluated resting comfortably in bed with recent history of abscess of the right second digit. Patient denies any new issues or complaints overnight. He states that he is feeling comfortable today. Postop General: No Complaints Gastrointestinal: Good Appetite Pain Management: PO Objective Vital Sign - Last Date Time Temp Pulse Resp B/P Pulse Ox O2 Delivery O2 Flow Rate FiO2 08/02/16 12:34 36.4 77 18 125/69 99 Room Air Intake and Output 08/01/16 08/01/16 08/02/16 Cumulative From/Thru 15:00 23:00 07:00 07/30/16 22:35 - 08/02/16 06:09 Intake Total 300 ml 831 ml 826 ml 5680 ml Output Total 1425 ml 750 ml 2700 ml Balance -1125 ml 831 ml 76 ml 2980 ml Intake Oral 300 ml 300 ml 1100 ml IV Total 831 ml 526 ml 4580 ml Output Urine Total 1425 ml 750 ml 2700 ml Urine/Stool Mix 0 ml # Bowel Movements 0 0 0 Result Diagram: 08/02/16 0550 07/31/16 0455 Lab Test 07/30/16 23:08 07/31/16 03:00 07/31/16 03:35 07/31/16 04:00 Total Bilirubin 0.8mg/dL (0.0-1.2) Aspartate Amino Transf (AST/SGOT) 23U/L (0-50) Alanine Aminotransferase (ALT/SGPT) 12U/L (0-44) Alkaline Phosphatase 136U/L (25-160) Total Protein 8.2g/dL (6.4-8.4) Albumin 3.2g/dL (3.4-5.0) Hold Mcguire Top Tube Received (Received) Hemoglobin A1c 8.4% (4.8-5.6) Urine Color Yellow (YELLOW) Urine Appearance Clear (CLEAR,HAZY) Urine pH 5.5 (5.0-8.0) Urine Specific [place] 1.025 (1.003-1.035) Urine Protein Tracemg/dL (NEG,TRACE) Urine Glucose (UA) 500mg/dL (NEGATIVE) Urine Ketones Tracemg/dL (NEGATIVE) Urine Occult Blood Small (NEGATIVE) Urine Nitrite Negative (NEGATIVE) Urine Bilirubin Negative (NEGATIVE) Urine Urobilinogen Normalmg/dL (NORMAL) Urine Leukocyte Esterase Negative (NEGATIVE) Urine RBC 0-2/hpf (0-2) Urine WBC 0-5/hpf (0-5) Urine Epithelial Cells Occasional/hpf (NONE-MOD) Urine Crystals None seen (NONE SEEN) Urine Bacteria None/hpf (NONE-FEW) Urine Hyaline Casts None/lpf (NONE) Urine Granular Casts None seen (NONE SEEN) Urine Waxy Casts None seen (NONE SEEN) Urine Red Blood Cell Casts None seen (NONE SEEN) Urine White Blood Cell Casts None seen (NONE SEEN) Urine Mucus None seen (None Seen) Urine Trichomonas None seen (NONE SEEN) Urine Yeast None (NONE SEEN) Urinalysis Comment Urine Culture Reflexed Not indicated Hold Urine Received (Received) Test 07/31/16 04:55 08/01/16 15:40 08/02/16 05:00 08/02/16 05:50 Sodium Level 136mEq/L (134-144) Potassium Level 4.9mEq/L (3.5-5.2) Chloride Level 94mEq/L (97-108) Carbon Dioxide Level 25mmol/L (18-29) Blood Urea Nitrogen 18mg/dL (8-27) Creatinine 1.20mg/dL (0.76-1.27) Estimat Glomerular Filtration Rate 65mL/min (>59) Glucose Level 338mg/dL (60-99) Calcium Level 8.0mg/dL (8.5-10.1) Vancomycin Level Trough 16.6mcg/mL Prothrombin Time 15.4sec (8.1-12.5) Prothromb Time International Ratio 1.43ratio Activated Partial Thromboplast Time 34.2sec (22.8-33.0) White Blood Count 4.3th/mm3 (3.8-10.1) Red Blood Count 3.71mil/mm3 (4.40-5.80) Hemoglobin 9.3g/dL (13.8-17.2) Hematocrit 29.8% (41.0-50.0) Mean Corpuscular Volume 80.3fL (81-100) Mean Corpuscular Hemoglobin 25.1pg (27.0-35.0) Mean Corpuscular Hemoglobin Concent 31.2% (32.0-37.0) Red Cell Distribution Width 17.8% (12.3-15.4) Platelet Count 67bil/L (150-400) Neutrophils (%) (Auto) 65.0% (40-74) Lymphocytes (%) (Auto) 14.0% (14-46) Monocytes (%) (Auto) 16.4% (4-12) Eosinophils (%) (Auto) 3.7% (0-5) Basophils (%) (Auto) 0.7% (0-3) Exam General: Alert, Oriented X3, Cooperative, No Acute Distress Lower Extremities: Right: Edema localized Bilateral: Extremity pink Extremity warm (confined to the second toe on the right) Lower Extremity Pulses: Palpable: Left Dorsalis Pedis Left Posterior Tibal Right Dorsalis Pedis Right Posterior Tibal Podiatry WOUND : Wound Location/Description Right second digit dorsal medial proximal interphalangeal joint incision and drainage site without exposed bone or tendon there is minimal surrounding erythema no noted purulent drainage minimal serosanguineous drainage wound measures 1.2 cm x 0.2 cm x 0.3 cm in depth Incision General Appearence: No Erythemia Assessment & Plan Impression Improving diabetic abscess of the right second toe Problems: (1) Diabetic foot ulcer Qualifiers: Diabetes mellitus type: type 2 Laterality: right Qualified Code: E11.621 - Type 2 diabetes mellitus with foot ulcer Plan: Wound dressing changed today and the wound was copiously flushed with large amounts of normal saline. A Betadine soaked sterile gauze dressing was applied. This dressing is to remain clean dry and intact until his follow-up podiatry visit. This patient is stable for discharge from a podiatry standpoint suggests 2 weeks by mouth Augmentin. He will follow up in my office Saturday afternoon. Status: Acute ICD Code: E11.621 Robby Martinez DPM Aug 02, 2016 13:56
--- NOTE | 2016-08-02 13:56 | NUR ---
Discharge Pt left via POV and with spouse, all instructions verbalizes understanding. Pt and spouse have made f/u appnt with Dr. Stout and PCP. All questions answered. One Rx given for ABO
[2016-08-17] MEDS ORDERED: SPIR100T3 PO (10:46)
== END 2016-08-02 13:57 | disposition home or self-care (01) | DRG 638 ==
LOC: SED 22:32 → MOC 07-31 02:15 → OBSVTOIN 07-31 02:15 → MOC 07-31 03:01
PROVIDERS: ADMIT Specialist; ATTEND Specialist
PROC: 0H9MXZX Drainage of Right Foot Skin, External Approach, Diagnostic (ICD-10-PCS; principal; 2016-07-31)
DX: E11.621 Type 2 diabetes mellitus with foot ulcer (principal); L02.611 Cutaneous abscess of right foot; E11.65 Type 2 diabetes mellitus with hyperglycemia; E11.40 Type 2 diabetes mellitus with diabetic neuropathy, unspecified; I25.10 Atherosclerotic heart disease of native coronary artery without angina pectoris; D69.6 Thrombocytopenia, unspecified; I10 Essential (primary) hypertension; E78.5 Hyperlipidemia, unspecified; Z98.61 Coronary angioplasty status; Z95.2 Presence of prosthetic heart valve

== ENCOUNTER 2016-08-31 09:20 | Day surgery (SDC) | payer OTHER ==
--- NOTE | 2016-08-29 13:10 | PCM.ANEPRE ---
Anesthesia Pre-Op Review Reason for Review: multi co morbids- low platelet counts Anesthesia Recommendations: Proceed with Procedure (patient with Cirrhosis, ascities in need of liver transplant with low platlet count with gangrene of toe in need of 2nd toe amputation. Case must proceed and should be able to done with block by Dr Martinez.) Adan Luna MD Aug 29, 2016 13:10
[~2016-08-31] VITALS: Ht 177.8 cm; Wt 103.2 kg
--- NOTE | 2016-08-31 07:17 | PCM.HPANE ---
Patient Data Date of Service: Aug 31, 2016 Surgeon Admitting Provider: Attending Provider:Robby Martinez DPM Primary Care Physician:Patt Dutta MD Other Provider:Eder Zaragoza Anesthesia Reason for Visit Right Toe Osteomyelitis Ht/WT & BMI Height (Feet): 5 Height (Inches): 10 Weight (Kilograms): 107.95 Body Mass Index 34.00 Allergies Coded Allergies: No Known Allergies (Verified Allergy, Unknown, 10/05/15) Uncoded Allergies: crab/lobster (Allergy, Severe, Shortness of Breath, 10/05/15) Past Anesthesia History Anesthesia History: Denies:: Abnormal Airway, Anesthesia Reactions, Difficult Intubation, Fam Anesthesia Reaction, Fam Malignant Hypertherm, Malignant Hyperthermia Diabetes History Hx Diabetes?: Yes (IDDM- last found Hgb A1C- 8.4 on 07/31/16) Glycemic Control: Insulin & Oral Medication MRSA MRSA: No Medications Hypertension Medication: Yes Home Meds Incl Beta Yovany: Yes Active Scripts Amoxicillin/Clav K 875-125 mg (Augmentin 875-125 mg)1 Each Tablet1 Tablet PO BID #28 TABLET Ref 0 Prov:Waqar Crawley 08/02/16 Lisinopril 20 Mg Upzyns76 Mg PO DAILY 30 Days Prov:Kvng Wahl MD 10/07/15 Reported Medications Spironolactone 100 Mg Zauehd673 Mg PO DAILY #30 TABLET Ref 0 08/17/16 Gabapentin 100 Mg Arqgnth875 Mg PO DAILY 30 Days Ref 0 07/31/16 Esomeprazole Magnesium (Nexium)40 Mg Capsule.dr40 Mg PO BID Ref 0 09/23/15 Metformin ER 1,000 Mg Tablet1,000 Mg PO BID 09/21/15 Furosemide 40 Mg Zvkbaz28 Mg PO HOLDING 09/21/15 Insulin Regular, Human (HUMulin-R U100 Insulin Vial)100 Unit/1 Ml Yeec10-04 Units SUBQ BIDAC sliding scale 10/13/14 Multivitamin (Multi Vitamin Daily)1 Each Tablet1 Each PO DAILY 30 Days Ref 0 10/13/14 Metoprolol Succinate ER (Toprol XL)100 Mg Fewjz037 Mg PO BID 10/13/14 Lovastatin 10 Mg Yvuciw26 Mg PO Q48 HRS 10/13/14 NPH, Human Insulin Isophane (HUMulin-N U100 Insulin Vial)100 Unit/1 Ml Vial40 Unit SUBQ BID-INSULIN 10/13/14 History History of ENT Problems?: No HEENT History: Denies:: Abnormal Airway Difficult Intubation Dysphagia Hearing Problem Hx of Heart Problems?: Yes Cardiovascular History: Positive for:: Cardiac Surgery (cabg, TAVR- december 2015) Edema Heart Murmur Hypertension Valvular Heart Disease (echo 2015 demonstrates competent and patent s/p TAVR with symptomatic improvement.) Denies:: AICD Atrial Fibrillation Chest Pain Congestive Heart Failure Irregular Heartbeat Other Cardiac History: chronic thrombocytopenia and anemia- being followed by Dr Lorenz in hematology Other History/Comments Cardiac cleared for case. Hx of Respiratory Problem?: No Respiratory History: Positive for:: Chest Surgery (CABG, TAVR) Pneumonia Denies:: Asthma COPD Cough Hemoptysis Oxygen Administration Tuberculosis Use of Inhalers / NEBS Hx Neurologic Problems?: No Neurological History: Positive for:: Dizziness (when on warfarin) Denies:: CVA Dementia Headaches Parkinson's Disease Seizures Hx of GI Problems?: Yes Gastrointestinal History: Positive for:: Cirrhosis (liver, ascites) Diverticulitis Gastroesphageal Reflux Denies:: Hepatitis Hiatal Hernia Rectal Bleeding Other GI Pertinent History: hx of gastric band Hx of Problems?: No Skin History: Positive for:: History Skin Disorders? (chronic ulcer right 2nd toe- current admission problem) Denies:: Pressure Ulcers Hx Musculoskeletal Problems?: No Musculoskeletal History: Denies:: Joint Replacement Hx of Psycho/Social Problems?: No Psycho Social History: Denies:: Anxiety Bipolar Disorder Hx Depression Hx Surgeries?: Yes (aortic valve replacement, quad bypass, angioplasty, colon resection, gall b) Hx Any Other Health Problems?: Yes Other History: Positive for:: Endocrine Disease (DMII) Hospitalization Denies:: Cancer Thyroid Disease History Blood Transfusions: Positive for:: Blood Transfusions Denies:: Blood Transfuse Reaction Hx Diabetes: Yes (IDDM- last found Hgb A1C- 8.4 on 07/31/16) Hx Alcohol Use: NoHx Substance Use: No Smoking Status: Never Smoker Have You Smoked inLast 12 mo: No Stop/Bang Treated for Sleep Apnea?: Yes Do You Have a CPAP Machine?: Yes P-Blood Pressure: treated: Yes B- Body Mass Index > 35 kg/m2: Yes A- Age over 50: Yes N- Neck Large Circumference: Yes G- Gender Male: Yes EZ Risk Assessment: High Risk, =/>3 Yes Risk Assessment Category Category 1A: Patient has history of documented sleep apnea, and HAS NOT received any narcotic, sedative or anesthesia administration during this stay. Category 1B: Patient has history of documented sleep apnea, and HAS received any narcotic , sedative or anesthesia administration during this stay Category 2: Patient has SUSPECTED Obstructive Sleep Apnea, and HAS received any narcotic , sedative or anesthesia administration during this stay. Category 3: Patient has SUSPECTED Obstructive Sleep Apnea and HAS NOT received narcotic, sedative or anesthesia administration during this stay. Category 4: Outpatient in Procedural Areas with known sleep apnea or who screen positive for High Risk via the STOP/BANG questionnaire. Plan Impression Patient chart reviewed, patient interviewed and anesthestic plan with risks, benefits, and alternatives discussed, and informed consent obtained. ASA Physical Status: ASA3 Severe Disease Anesthetic Plan: MAC Bene/Risks/Altern/Consents: Yes HP Complete Prior to Induction: Yes Tay Flor DO Aug 31, 2016 07:17
[~2016-08-31 09:20] MED LIST changes: +AMOX-366 PO; +Clindamycin Inj 600 MG in IV Premix 1 EACH IV ONE; +GABA-500 PO; +SPIR100T3 PO; -UBID100C25 PO; -WARF6TAB6 PO; -[UNRECOGNIZED DRUG - OTHER]
[2016-08-31] MEDS ORDERED: Ketamine 10 mg/mL 20 mL Inj ONE (09:21)
[2016-08-31] MEDS ORDERED: Dexamethasone 4 mg/mL Inj ONE (09:21)
[2016-08-31] MEDS ORDERED: Propofol 10,000 mCg/mL 20 mL Inj ONE (09:21)
[2016-08-31] MEDS: Lactated Ringer's 1,000 ML IV SCH ×2 (09:25→12:04)
[2016-08-31 09:44] VITALS: BP 126/57; PULSE 70; RESP 14; O2SAT 99
[2016-08-31] MEDS ORDERED: Lactated Ringer's 500 ML IV PRN (12:01)
[2016-08-31] MEDS ORDERED: Lactated Ringer's 1,000 ML IV SCH (12:01)
[2016-08-31] MEDS ORDERED: HYDROmorphone 1 mg/mL Inj IVPUSH PRN (12:05)
[2016-08-31] MEDS ORDERED: Phenylephrine 10,000 mCg/mL Inj IVPUSH PRN (12:05)
[2016-08-31] MEDS ORDERED: fentaNYL-PF 50 mCg/mL 2 mL Inj IVPUSH PRN (12:05)
[2016-08-31] MEDS ORDERED: MetoCLOpramide 5 mg/mL 2 mL Inj IVPUSH PRN (12:05)
[2016-08-31] MEDS ORDERED: Atropine 0.4 mg/mL Inj IVPUSH PRN (12:05)
[2016-08-31] MEDS ORDERED: Dexamethasone 4 mg/mL Inj IVPUSH PRN (12:05)
[2016-08-31] MEDS ORDERED: Labetalol 5 mg/mL 4 mL Inj IV PRN (12:05)
[2016-08-31] MEDS ORDERED: EPHEDrine Sulfate 50 mg/mL Inj IVPUSH PRN (12:05)
[2016-08-31] MEDS ORDERED: Ondansetron 2 mg/mL 2 mL Inj IVPUSH PRN (12:05)
[2016-08-31] MEDS ORDERED: Bupivacaine-MPF 0.5% 30 mL Inj INJ ONE (12:20)
--- NOTE | 2016-08-31 12:50 | PCM.PODPO ---
Podiatry Operative Report Date of Service: Aug 31, 2016 Date of Service Aug 31, 2016 Pre Operative Diagnosis Osteomyelitis right second digit Post Operative Diagnosis Same as preoperative diagnoses Procedure Partial amputation of right second toe Surgeon Surgeon: Robby Martinez DPM Assistants: None Indication for Procedure Osteomyelitis of right second toe Findings Necrosis of the right second digit middle phalanx. Healthy appearing intact right proximal phalanx of the second toe Details of Procedure Patient was identified in the preoperative holding area on preoperative comorbidities and allergies were identified and thoroughly discussed the patient was transported to the operating room and placed on the operating room table in the normal supine position. The patient was then prepped and draped in the normal aseptic technique. The patient was placed under Mac anesthesia by the anesthesia service. Attempt was first directed to the dorsal aspect of the right second digit. A fishmouth style incision was made slightly proximal to the second proximal interphalangeal joint ensuring that the ulceration overlying the second middle phalanx was excised in total. This incision was carried down to bone. A #15 blade was utilized to transect through the proximal interphalangeal joint and the second digit was removed distal to the proximal interphalangeal joint. The second digit and necrotic middle phalanx were sent for pathologic identification. A fresh #15 blade was used to resect all soft tissue from the proximal phalanx to the level of the proximal mid shaft and a bone cutting forcep was then utilized to cut the proximal phalanx. The distal portion of the proximal phalanx was then removed from the foot and sent for clean margin. This wound was then copiously flushed with large amounts of normal saline. All remaining tissue was healthy in appearance with no real drainage noted no signs of acute infection. Closure was performed utilizing number 3. 0 Prolene. No complications occurred during this procedure this wound was dressed utilizing Adaptic sterile 4 x 4 gauze soaked in Betadine Kerlix and Coban. The patient was awoken by anesthesia and transported to the operating room. Grafts, Implants: None Complications There were no periprocedural complications identified. Condition Stable Anesthetic Administered: MAC Catheters: None Output, Estimated Blood Loss: 5 Blood Admin during surgery: No Surgical Cast or Splint: None Surgical Specimen Removed: Yes Specimen sent to Pathology: Yes Surgical Specimen description: Right second digit and second digit clean margin Post Operative Plan elevate right lower extremity Partial weightbearing to right heel right lower extremity Keep dressing clean dry and intact Robby Martinez DPM Aug 31, 2016 12:49
[2016-08-31 12:51] VITALS: BP 115/58; PULSE 72; RESP 14; O2SAT 95
--- NOTE | 2016-08-31 13:05 | PCM.ANEP1 ---
Post Anesthesia Phase 1 PACU Phase 1 Assessment Date of Service: Aug 31, 2016 Vital Signs Vital Signs Date Time Temp Pulse Resp B/P Pulse Ox O2 Delivery O2 Flow Rate FiO2 08/31/16 12:51 72 14 115/58 95 Room Air 08/31/16 09:44 36 70 14 126/57 99 Room Air Anesthetic Administered: MAC Level of Alertness: Awake, talking FERRELL's with Equal Strength: Yes Pain: No Nausea or Vomiting: No Oxygen Delivery: Room Air Lungs: Clear to Auscultation, Normal Air Movement Dermatome Level: Full Sensation Tay Flor DO Aug 31, 2016 13:05
[2016-08-31 13:38] VITALS: BP 124/61; PULSE 71; RESP 16; O2SAT 99
--- NOTE | 2016-08-31 14:44 | PCM.ANEP2 ---
Post Anesthesia Evaluation ASA/CMS Post Anesthesia Date of Service: Aug 31, 2016 VS in Patient's Normal Range?: Yes Resp Stable; Airway Patent?: Yes CV Function & Hydration Stable: Yes Mental Status Recovered?: Yes Pain control Satisfactory?: Yes N/V Control Satisfactory?: Yes Tay Flor DO Aug 31, 2016 14:44
--- NOTE | 2016-09-04 10:03 | PATH ---
SURGICAL PATHOLOGY Attending Physician:Robby Martinez, CASE STATUS: Signed Out PATIENT NAME: SASCHA BARBER PID: [id number] : 1955 DATE COLLECTED:08/31/2016 22:05 SPECIMEN: 1: Toe(s), Amputation, Non-Traumatic 2: Toe(s), Amputation, Non-Traumatic CLINICAL HISTORY: GANGRENE RIGHT SECOND TOE, OSTEOMYELITIS 1). DISTAL RIGHT SECOND TOE 2). CLEAN MARGIN SECOND TOE FINAL DIAGNOSIS: 1.AMPUTATION, OF DISTAL RIGHT SECOND TOE: CUTANEOUS ULCER WITH SEVERE ACUTE AND CHRONIC INFLAMMATION OF SOFT TISSUE EXTENDING INTO UNDERLYING BONE WITH EXTENSIVE OSTEOMYELITIS WITH FOCAL BONE NECROSIS. SOFT TISSUE MARGIN INVOLVED WITH ACUTE AND CHRONIC INFLAMMATION WITH FOCAL SOFT TISSUE NECROSIS. 2.CLEAN MARGIN, SECOND TOE: FRAGMENT OF BONE WITH EXTENSIVE CHRONIC ACTIVE OSTEOMYELITIS WITH BONE NECROSIS EXTENDING TO INKED SPECIMEN MARGINS. ICD10 CODES M86.671 GROSS DESCRIPTION: The specimens are received in formalin, labeled with the patient's name, and sublabeled as the following: (1) distal right 2nd toe; (2) clean margin, 2nd toe. (1) The specimen consists of a disarticulated toe (3.8 cm AP, 2.0 cm SI, 1.8 cm ML). The toenail is present. The skin is dolan-pink and contains an open desai-black ulcer (0.6 x 0.6 cm) on the posterior superomedial aspect located 2.6 cm from the tip , 0.3 cm from the superior, 1.6 cm from the inferior, and 0.5 cm on the lateral resection margins. The underlying bone is easily sliced with a scalpel. The proximal bone is hard and cannot be sliced with a scalpel. Ink code: black-superior; orange-inferior; green-medial; blue-lateral. Section code: (1A) skin soft tissue resection margin; (1B) bone articular surface, open claims representative; (1C) ulcer, open claims representative; (1D) bone underlying ulcer, severely sectioned open claims representative. No pole and about sections have been decalcified. (2) The specimen consists of a piece of bone with an articular surface (1.2 x 1.2 x 1.1 cm). The bone is easily sliced with a scalpel. The cut surface is dolan-white and focally dark. Ink code: blue-resection margin. Section code: (2A) bone, perpendicularly sectioned, open claims representative. Note: The bone section has been decalcified. 09/01/16 JM MICRO DESCRIPTION: See diagnosis. ICD-9 CODES: CPT CODES: 1: 67588, 15820, 75268(2) Electronically Signed Out Cecilio Guevara MD [facility] [address], [place] [address] Technical component performed at [facility], [address] [place] [address] Ave[address], [place], [address]
== END 2016-08-31 23:59 | disposition home or self-care (01) ==
LOC: SAS 09:20
PROVIDERS: ATTEND Podiatrist Foot & Ankle Surgery
DX: M86.671 Other chronic osteomyelitis, right ankle and foot (principal); M90.571 Osteonecrosis in diseases classified elsewhere, right ankle and foot; I10 Essential (primary) hypertension; E11.9 Type 2 diabetes mellitus without complications; E78.5 Hyperlipidemia, unspecified; I25.9 Chronic ischemic heart disease, unspecified; G47.30 Sleep apnea, unspecified; I48.91 Unspecified atrial fibrillation; I35.0 Nonrheumatic aortic (valve) stenosis; D50.9 Iron deficiency anemia, unspecified; I25.10 Atherosclerotic heart disease of native coronary artery without angina pectoris; K21.9 Gastro-esophageal reflux disease without esophagitis; M10.9 Gout, unspecified; Z86.718 Personal history of other venous thrombosis and embolism; K74.60 Unspecified cirrhosis of liver; Z95.2 Presence of prosthetic heart valve; Z95.1 Presence of aortocoronary bypass graft; Z95.5 Presence of coronary angioplasty implant and graft; Z79.4 Long term (current) use of insulin; Z79.84 Long term (current) use of oral hypoglycemic drugs
CPT/HCPCS: 28825; J1100; J2250; J7120

== ENCOUNTER 2016-09-11 11:09 | Inpatient (IN) | payer OTHER ==
[~2016-09-11] VITALS: Ht 177.8 cm; Wt 104.7 kg
[2016-09-11] VITALS (8 sets, daily range): BP systolic 149–206; BP diastolic 80–87; PULSE 70–82; RESP 15–21; O2SAT 97–100
[~2016-09-11 11:09] MED LIST changes: -Clindamycin Inj 600 MG in IV Premix 1 EACH IV ONE
--- NOTE | 2016-09-11 11:21 | ED.REPORT ---
HPI-Abd Pain M 40 and Over Date of Service Sep 11, 2016 ED Provider: The patient is a 61 year old male with history of coronary artery disease, diabetes mellitus, hypertension, hyperlipidemia, and non-alcoholic cirrhosis with ascites, who presents to the emergency department. This morning he woke up with nausea, vomiting, generalized weakness, tremor, and chills. He had a small amount of orange juice this morning with no relief of his symptoms. He was able to keep down fluids this morning. He has noticed mild congestion. His last bowel movement was this morning. He denies abdominal pain, increased abdominal bloating, diarrhea, constipation, fever, chest pain, lower extremity swelling. He had his ascites drained last week, this was the first time this was completed. He was admitted in July for a diabetic toe infection. The toe was amputated and he has been on antibiotics since. Nursing Notes Stated Complaint: NAUSEA,DIZZY Chief Complaint: Male Abdominal Pain Nursing Notes Reviewed: Yes Allergies: Coded Allergies: shellfish derived (Verified Allergy, Mild, SWELLING, 09/11/16) No Known Allergies (Verified Allergy, Unknown, 09/11/16) Scheduled Esomeprazole Magnesium (Nexium) 40 Mg Capsule.dr 40 MG PO BID Furosemide (Furosemide) 40 Mg Tablet 40 MG PO QAM Gabapentin (Gabapentin) 300 Mg Capsule 300 MG PO HS Insulin Regular, Human (HUMulin-R U100 Insulin Vial) 100 Unit/1 Ml Vial 30-40 UNITS SUBQ bid IN AM AND DINNER Lisinopril (Lisinopril) 20 Mg Tablet 20 MG PO DAILY Lovastatin (Lovastatin) 10 Mg Tablet 10 MG PO Q48 HRS Metformin (Glucophage) 1,000 Mg Tablet 1,000 MG PO BID Metoprolol Succinate ER (Toprol XL) 100 Mg Tabcr 100 MG PO BID Multivitamin (Multi Vitamin Daily) 1 Each Tablet 1 EACH PO DAILY NPH, Human Insulin Isophane (HUMulin-N U100 Insulin Vial) 100 Unit/1 Ml Vial 30- 40 UNITS SUBQ BID IN AM AND HS Spironolactone (Spironolactone) 50 Mg Tablet 50 MG PO DAILY General Time Seen by MD: 11:21 Chief Complaint Other (nausea and vomiting) Hx Obtained From: Patient, Spouse Arrived By: Walk-in Sudden in Onset?: Yes Onset Occurred: 1 - 4 hours ago Symptom Duration: Since onset Progression since Onset: Constant Severity: Current: No pain currently Severity: Maximum: No pain Recent Healthcare: No recent hospitalization, Recent doctor visit, Previous surgery Similar Sx Previous: Yes Past Medical History Past Medical History Non-alcoholic cirrhosis with ascites Diverticulitis Reports: Coronary artery disease, Diabetes mellitus, Hyperlipidemia, Hypertension Past Surgical History Colon repair after a tear Gastric lap band Coronary bypass graft surgery Toe amputation Reports: Cholecystectomy Reports: Carpal tunnel Family History Reports: Coronary artery disease, Diabetes mellitus, Stroke Smoking History Never Smoker Social History Alcohol Use: Denies alcohol use Drug Use: Denies drug use Other Social History: Good social support, Lives alone, Local resident 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 Ambulatory Status Independent Review of Systems Review of Systems Note: +chronic abdominal swelling Constitutional: Reports: Chills, Denies: Fever Respiratory: Denies: Non-productive cough, Shortness of breath Cardiovascular: Denies: Chest pain GI: Reports: Nausea, Vomiting, Denies: Abdominal pain, Constipation, Diarrhea Musculoskeletal: Denies: Extremity swelling Complete sys rev & neg: except as marked. Ears / Nose / Throat: Reports: Nasal congestion Neurologic: Reports: Shaking (tremors) Physical Exam Initial Vital Signs Vital Signs (First) Date Time Temp Pulse Resp B/P Pulse Ox O2 Delivery O2 Flow Rate FiO2 09/11/16 11:13 36.0 78 21 184/85 100 Room Air Initial VS: Reviewed, Vital signs abnormal Head / Eyes: Atraumatic, Normocephalic, PERRL ENT: Mucous membranes moist, Conjunctiva normal, No scleral icterus Neck: Supple, Non-tender, Full range of motion Lymphatic: No lymphadenopathy Extremities: Vascular intact, Neuro intact, No swelling, No tenderness Skin: Warm, Dry, No cyanosis Psychiatric: Mood/affect normal, Behavior normal, Normal thought content General/Constitutional: Awake, Alert, Cooperative Respiratory / Chest: Atraumatic, Breath sounds NL, Breath sounds = bilat, No respiratory distress, No rales, No rhonchi, No wheezing Cardiovascular: Heart rate NL, Regular rhythm, Heart sounds NL, No gallop, No murmurs, No rubs, Peripheral circulation NL Lower Ext Edema: Positive: Bilateral 2+ Abdomen: Soft, Non-tender, McBurney's non-tender, No guarding, No rebound, No hernia, No pulsatile mass Bowel Sounds / Distention: Positive: Bowel sounds hypoactive, Distention moderate There is a small hard subcutaneous foreign body to LUQ. Back: Atraumatic, Inspection NL, No midline vertebral tend Neurologic: Oriented X3, Speech NL, No motor deficits, No sensory deficits, Cerebellar NL, Memory NL, Gait NL Interpretation & Diagnostics Lab Results Interpretation Result Diagram: 09/11/16 1128 09/11/16 1128 Test 09/11/16 11:28 09/11/16 15:31 White Blood Count 6.3th/mm3 (3.8-10.1) Red Blood Count 4.28mil/mm3 (4.40-5.80) Hemoglobin 11.9g/dL (13.8-17.2) Hematocrit 36.6% (41.0-50.0) Mean Corpuscular Volume 85.5fL (81-100) Mean Corpuscular Hemoglobin 27.8pg (27.0-35.0) Mean Corpuscular Hemoglobin Concent 32.5% (32.0-37.0) Red Cell Distribution Width 20.5% (12.3-15.4) Platelet Count 61bil/L (150-400) Neutrophils (%) (Auto) 82.0% (40-74) Lymphocytes (%) (Auto) 7.9% (14-46) Monocytes (%) (Auto) 8.5% (4-12) Eosinophils (%) (Auto) 0.9% (0-5) Basophils (%) (Auto) 0.5% (0-3) Prothrombin Time 12.7sec (8.1-12.5) Prothromb Time International Ratio 1.18ratio Magnesium Level 1.7mg/dL (1.6-2.6) Troponin T 0.010ug/L (0.0-0.011) Lipase 43U/L (13-60) Hold Mcguire Top Tube Received (Received) Urine Color Yellow (YELLOW) Urine Appearance Clear (CLEAR,HAZY) Urine pH 7.0 (5.0-8.0) Urine Specific [place] 1.015 (1.003-1.035) Urine Protein Negativemg/dL (NEG,TRACE) Urine Glucose (UA) 250mg/dL (NEGATIVE) Urine Ketones Negativemg/dL (NEGATIVE) Urine Occult Blood Trace (NEGATIVE) Urine Nitrite Negative (NEGATIVE) Urine Bilirubin Negative (NEGATIVE) Urine Urobilinogen 1.0mg/dL (NORMAL) Urine Leukocyte Esterase Negative (NEGATIVE) Urine RBC 0-2/hpf (0-2) Urine WBC 0-5/hpf (0-5) Urine Epithelial Cells None/hpf (NONE-MOD) Urine Crystals None seen (NONE SEEN) Urine Bacteria Few/hpf (NONE-FEW) Urine Hyaline Casts None/lpf (NONE) Urine Granular Casts None seen (NONE SEEN) Urine Waxy Casts None seen (NONE SEEN) Urine Red Blood Cell Casts None seen (NONE SEEN) Urine White Blood Cell Casts None seen (NONE SEEN) Urine Mucus None seen (None Seen) Urine Trichomonas None seen (NONE SEEN) Urine Yeast None (NONE SEEN) Urinalysis Comment None Urine Culture Reflexed Not indicated ECG Interpretation ECG Interpretation: Sinus rhythm Increased QTc Normal intervals Q waves in III and aVF No acute ST or T wave changes similar to EKG taken on 04/17/16 Time: 11:45 Interpreted by: ED physician X-Ray Abdominal Interpretation IMPRESSION: Overall nonspecific gas pattern without gross obstruction. Moderate stool is present. Recommend correlation constipation. Dictated by: Lulu Mae M.D. on 09/11/2016 at 13:42 Interpretation / Wet Read by: Interpret - Radiologist Re-Eval/Medical Decision Med Decision/Clinical Course The patient presents with general malaise. He has not had hyperkalemia and renal failure. I was contacted by the [facility] specimen collector to recommended panculture him and they also wanted an echo and a liver Doppler. They do not fully have a diagnosis for his liver disease. The patient will be admitted for further treatment for his hyperkalemia and evaluation Source of Hx: Old records, Family Time of Eval: 15:00 Re-Evaluation/Progress Note: Rechecked the patient. Discussed results, diagnosis, and plan for admission. All questions were addressed. Consultation #1: Referral / Consult Name: Myles Pedraza MD Consulted With: Hospitalist Requested Call at: 15:20 Call Returned at: 15:26 Home School Liaison Officer: Will see patient, Agrees with eval, Agrees with plan, Accepts admit Consultation #2: Call Returned at: 16:45 Note: Spoke with the on-call specimen collector at [facility] at [phone]. She recommends dasilva culturing him and obtaining ascitic fluid for culture. 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 He needs echocardiogram of his heart and liver doppler. He should get 25 % albumin 1 g/kg per day. Counseled Regarding: Diagnosis, Lab results, Need for admission Discharge & Departure Primary Impression: Hyperkalemia Additional Impressions: Acute renal failure Acute renal failure type: unspecified Qualified Code: N17.9 - Acute kidney failure, unspecified Cirrhosis, non-alcoholic Disposition: ADMITTED TO HOSPITAL Vital Signs - All Vital Signs Date Time Temp Pulse Resp B/P Pulse Ox O2 Delivery O2 Flow Rate FiO2 09/11/16 15:30 70 16 149/81 100 Room Air 09/11/16 13:42 70 16 153/80 99 Room Air 09/11/16 11:13 36.0 78 21 184/85 100 Room Air )( All Prior VS Reviewed: Yes Condition: Stable Referrals: Patt Dutta MD (PCP) (Family) Scribe Attestation Portions of this note were transcribed by Bridgette Paez. I, Dr. Martinez personally performed the history, physical exam and medical decision-making; I reviewed and confirmed the accuracy of the information in the transcribed note. Signed by: Ruma Sierra, 09/11/2016 at 1700. copies to: Patt Dutta MD, Jena M MD Sep 11, 2016 11:21 Bridgette Paez Sep 11, 2016 11:33 Dictated by: Lulu Mae M.D. on 09/11/2016 at 13:42 Interpretation / Wet Read by: Interpret - Radiologist Re-Eval/Medical Decision Source of Hx: Old records, Family Time of Eval: 15:00 Re-Evaluation/Progress Note: Rechecked the patient. Discussed results, diagnosis, and plan for admission. All questions were addressed. Consultation #1: Referral / Consult Name: Myles Pedraza MD Consulted With: Hospitalist Requested Call at: 15:20 Call Returned at: 15:26 Home School Liaison Officer: Will see patient, Agrees with eval, Agrees with plan, Accepts admit Consultation #2: Call Returned at: 16:45 Note: Spoke with the on-call specimen collector at [facility] at [phone]. She recommends dasilva culturing him and obtaining ascitic fluid for culture. 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 He needs echocardiogram of his heart and liver doppler. He should get 25 % albumin 1 g/kg per day. Counseled Regarding: Diagnosis, Lab results, Need for admission Discharge & Departure Primary Impression: Hyperkalemia Additional Impression: Acute renal failure Acute renal failure type: unspecified Qualified Code: N17.9 - Acute kidney failure, unspecified Disposition: ADMITTED TO HOSPITAL Vital Signs - All Vital Signs Date Time Temp Pulse Resp B/P Pulse Ox O2 Delivery O2 Flow Rate FiO2 09/11/16 15:30 70 16 149/81 100 Room Air 09/11/16 13:42 70 16 153/80 99 Room Air 09/11/16 11:13 36.0 78 21 184/85 100 Room Air )( All Prior VS Reviewed: Yes Condition: Stable Referrals: Patt Dutta MD (PCP) (Family) Scribe Attestation Portions of this note were transcribed by Bridgette Paez. I, Dr. Martinez personally performed the history, physical exam and medical decision-making; I reviewed and confirmed the accuracy of the information in the transcribed note. Signed by: Ruma Sierra, 09/11/2016 at 1700. copies to: Patt Dutta MD, Jena M MD Sep 11, 2016 11:21 Bridgette Paez Sep 11, 2016 11:33
[2016-09-11] MEDS ORDERED: Ondansetron 2 mg/mL 2 mL Inj IVPUSH PRN (11:35)
[2016-09-11] MEDS ORDERED: 0.9% Sodium Chloride 500 ML IV ONE (11:35)
[2016-09-11 11:45] LABS: BASOPHILS % (AUTO) 0.5 % (0-3); EOSINOPHILS % (AUTO) 0.9 % (0-5); MONOCYTES % (AUTO) 8.5 % (4-12); Mean Corpuscular Hemoglobin 27.8 pg (27.0-35.0); Mean Corpuscular Volume 85.5 fL (81-100); Platelet Count 61 bil/L (150-400)
[2016-09-11 12:03] LABS: INR 1.18 ratio
[2016-09-11 12:10] LABS: TROPONIN T 0.01 ug/L (0.0-0.011)
[2016-09-11 12:21] LABS: Magnesium 1.7 mg/dL (1.6-2.6)
--- NOTE | 2016-09-11 13:45 | DRSVH ---
PROCEDURE: X-RAY ACUTE ABDOMINAL SERIES ([id number]) INDICATIONS: nausea and vomiting TECHNIQUE: One view chest and two views of the abdomen were acquired. COMPARISON: None. FINDINGS: Surgical changes and devices: Sternal wires consistent with previous bypass procedure. Valve stent is noted. Presumed feeding tube is noted overlying the left upper quadrant. Cholecystectomy clips as we ll as a lower pelvic clips are noted. Chest: Lungs are clear. There is a mild appearance of increased pulmonary vascularity. Heart size is normal. No pleural effusions. No pneumoperitoneum. Abdomen: Bowel gas pattern demonstrates moderate stool. The stomach is mildly distended. No suspicio us calcifications. Visualized solid organ contours appear normal. Bones: No suspicious bony lesions. IMPRESSION: Overall nonspecific gas pattern without gross obstruction. Moderate stool is present. Rec ommend correlation constipation. Dictated by: Lulu Mae M.D. on 09/11/2016 at 13:42 Approved by: Lulu Mae M.D. on 09/11/2016 at 13:44
[2016-09-11] MEDS ORDERED: Insulin Human REGular-Omnicell 100 Unit/mL IV ONE (13:50)
[2016-09-11 16:09] LABS: APPEARANCE,URINE CLEAR (CLEAR,HAZY); COLOR,URINE YELLOW (YELLOW); OCCULT BLOOD,URINE TRACE (NEGATIVE)
[2016-09-11] MEDS ORDERED: GABA-502 PO (17:27)
[2016-09-11] MEDS ORDERED: METF1000 PO (17:27)
[2016-09-11] MEDS ORDERED: SPIR50TA2 PO (17:27)
--- NOTE | 2016-09-11 18:09 | PCM.HPMED ---
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 Patient also complaining of being shaky but denied chills or fever, no chest pain or shortness of breath, no abdominal pain, no diarrhea, no constipation . He was seen recently at [facility] where he underwent therapeutic abdominal paracentesis with removal of 8 L of fluid . Over the course of last week or so , he noticed increased abdominal girth and bloating,. He was admitted in July for a diabetic toe infection. The toe was amputated and he has been on antibiotics since. He does not know the name of the antibiotic but stated something sounds like sulfa. His will bring his full list of medication later today he said. ER workup revealed hyperkalemia and acute renal failure. Review of Systems: A comprehensive review of systems 12 point negative except for what is described on history of present illness Allergies Coded Allergies: shellfish derived (Verified Allergy, Mild, SWELLING, 09/11/16) No Known Allergies (Verified Allergy, Unknown, 09/11/16) Home Medications Amoxicillin/Clav K 875-125 mg (Augmentin 875-125 mg) 1 Each Tablet 1 TABLET PO BID Esomeprazole Magnesium (Nexium) 40 Mg Capsule.dr 40 MG PO BID Furosemide (Furosemide) 40 Mg Tablet 80 MG PO HOLDING Gabapentin (Gabapentin) 100 Mg Capsule 100 MG PO DAILY Insulin Regular, Human (HUMulin-R U100 Insulin Vial) 100 Unit/1 Ml Vial 30-40 UNITS SUBQ BIDAC sliding scale Lisinopril (Lisinopril) 20 Mg Tablet 20 MG PO DAILY Lovastatin (Lovastatin) 10 Mg Tablet 10 MG PO Q48 HRS Metformin ER (Metformin ER) 1,000 Mg Tablet 1,000 MG PO BID Metoprolol Succinate ER (Toprol XL) 100 Mg Tabcr 100 MG PO BID Multivitamin (Multi Vitamin Daily) 1 Each Tablet 1 EACH PO DAILY NPH, Human Insulin Isophane (HUMulin-N U100 Insulin Vial) 100 Unit/1 Ml Vial 40 UNIT SUBQ BID-INSULIN Spironolactone (Spironolactone) 100 Mg Tablet 100 MG PO DAILY PMH Non-alcoholic cirrhosis with ascites, Diverticulitis, Coronary artery disease, Diabetes mellitus, Hyperlipidemia, Hypertension Surgical History Colon repair after a tear, Gastric lap band, Coronary bypass graft surgery, Toe amputation Reports: Cholecystectomy Reports: Carpal tunnel Family History Family history reviewed and is pertinent for : Coronary artery disease, Diabetes mellitus, Stroke Social History Hx Alcohol Use: No Hx Substance Use: No Hx Tobacco Use: No Smoking Status: Never Smoker Living Arrangement: with Family Exam Vital Signs Vital Sign - Last Date Time Temp Pulse Resp B/P Pulse Ox O2 Delivery O2 Flow Rate FiO2 09/11/16 15:30 70 16 149/81 100 Room Air 09/11/16 11:13 36.0 Exam General: Critically ill appearing male. In stretcher comfortably. No acute distress HEENT: Sclerae anicteric. ROLANDO Neck : Cervical lymphadenopathy: Trachea midline, no JVD Chest: Chest wall tenderness, normal respiratory effort Heart : Regular rate and rhythm, no gallop, no murmur Lung: Clear bilaterally with auscultation, crackles, no wheezing Abdomen: Distended, nontender. Midline surgical scar compatible with history of intra-abdominal exploration. Normal bowel sounds all quadrants Extremity: Chest edema bilaterally, no calf tenderness, no cyanosis. Right foot with dressing in place. Neuro : Awake, alert, oriented 3. Grossly nonfocal Skin : No rash, no ulcers Lab and Diagnostics Result Diagram: 09/11/16 1128 09/11/16 1128 X-Rays, CTs and MRIs Chest x-ray reviewed : Overall nonspecific gas pattern without gross obstruction. Moderate stool is present. Recommend correlation constipation. Assessment & Plan 1. Acute renal Failure : Like prerenal : secondary to spironolactone, lisinopril, furosemide and questionable lucent use of Bactrim. Patient baseline creatinine is normal and now 1.58. Furosemide, lisinopril, spironolactone. Monitor electrolyte and renal function closely, 2. Hyperkalemia : Due to #1. I expect hyperkalemia to improve by holding the above medications. Patient is symptomatic and has no EKG changes. Insulin and Kayexalate were given to the emergency room. 3 . Hepatorenal Syndrome ? : Patient with end-stage liver disease. He is followed up at [facility] where he had abdominal paracentesis of 8 L done 2 weeks ago. Questionable eligibility for liver transplant given presents of coronary artery disease, status post valve replacement, long-standing diabetes with complications 4. Liver cirrhosis ( Due to SAPP) : Patient is followed at [facility]. Furosemide and spironolactone are on hold. Obtain ammonia level. 5. Diabetic foot ulcer s/p amputation: Per patient, he recently completed course of antibiotics. He denied being in outpatient IV antibiotics . to bring the complete list of medications. . 6. IDDM type II : Continue with home insulin regimen. Diabetic diet. Hemoglobin A1c 7. Ascites : No significant clinical evidence of SBP. Abdomen is significantly distended. We will obtain ultrasound guided paracentesis. Fluid to be sent for cell count and culture. I do not have enough clinical grounds to start him on antibiotics at this time. 8. Thrombocytopenia : Secondary to chronic liver disease and cirrhosis. No comparison on heparin products for the video prophylaxis. SCD contraindicated due to severe peripheral vascular disease. Ambulate every 2-4 hours encouraged. High-risk for DVT though VTE Prophylaxis Contraindicate VTE Med Contraindication: Plt Count below Reference Range VTE [facility] Dev Contraindication: Peripheral ischemia Time spent 75 minutes Myles Pedraza MD Sep 11, 2016 18:09
[2016-09-11] MEDS: Insulin Human REGular 300 Unit/3 mL Inj SUBQ SCH (18:40)
--- NOTE | 2016-09-11 18:43 | NUR ---
Admit Patient report called by Alyssa Coello [place] [facility] [place] Patient arrived via gurney to room 3023 around 1755. Patient was able to self transfer to bed. Patient was explained orientation to room, staff, bed controls, call light system. Patient denied pain at time of admit. Patient BG was 198 and was administered 30 units of Humulin R. Patient has several scars on bilateral legs and dry skin. Patient right second lower extremity digit has been amputated and has dressing C/D/I. Patient has bruising on right arm.
[2016-09-11] MEDS: Heparin 5,000 Unit/mL Inj SUBQ SCH (20:30)
[2016-09-11] MEDS: MeTOProlol XL 50 mg ER24 Tablet PO SCH (21:04)
[2016-09-12] VITALS (9 sets, daily range): BP systolic 128–161; BP diastolic 70–83; PULSE 68–80; RESP 16–20; O2SAT 98–99
--- NOTE | 2016-09-12 00:35 | NUR ---
Nausea Pt complained of nausea. Administered Zofran, 4mg IV push, effective. Pt resting in bed with eyes closed. No complaints of n/v at this time. Will continue to monitor. Call light within reach, using appropriately. Pleasant and cooperative with care.
--- NOTE | 2016-09-12 01:48 | NUR ---
dressing on right toe amputie Dressing is clean dry and in tack on right toe amputie. Patient has no complaints of pain. Patient is in bed resting with call light within reach.
[2016-09-12] MEDS: Insulin Human REGular 300 Unit/3 mL Inj SUBQ SCH ×4 (07:51→22:21)
[2016-09-12] MEDS: MeTOProlol XL 50 mg ER24 Tablet PO SCH ×2 (07:52→21:13)
[2016-09-12] MEDS: Heparin 5,000 Unit/mL Inj SUBQ SCH ×2 (07:55→20:30)
[2016-09-12 08:39] LABS: Mean Corpuscular Hemoglobin 27.2 pg (27.0-35.0); Mean Corpuscular Volume 86.3 fL (81-100)
[2016-09-12 09:01] LABS: INR 1.24 ratio
--- NOTE | 2016-09-12 14:09 | PCM.PNMED ---
Subjective Date of Service Sep 12, 2016 Subjective more collateral info obtained from , since pt had paracentesis 08/30, pt has been on 40mg of lasix aldactone was stopped, was told that fluid has too much protein(sounded like exudative) in ascitic fluid. There was no final diagnosis as to why pt has ascites, pt was scheduled for doppler of liver which is not available at [facility]. Cayla [phone], RN at [facility]. pt had dvt in , was on Coumadin until , followed by also stated that he was bit more confused, concerned about flapping tremors , which has worsened since tapping. pt is tolerating diet, still feel weak, denied abdominal pain but discomfort, dry hives but no vomiting. Exam Vital Signs Vital Sign - Last Date Time Temp Pulse Resp B/P Pulse Ox O2 Delivery O2 Flow Rate FiO2 09/12/16 11:04 80 09/12/16 09:30 36.8 20 156/76 98 Room Air Intake and Output 09/11/16 09/11/16 09/12/16 Cumulative From/Thru 15:00 23:00 07:00 09/11/16 11:13 - 09/12/16 05:33 Intake Total 500 ml 400 ml 537 ml 1437 ml Output Total 1000 ml 1000 ml Balance 500 ml 400 ml -463 ml 437 ml Intake Oral 400 ml 537 ml 937 ml IV Total 500 ml 500 ml Output Urine Total 1000 ml 1000 ml # Voids 1 1 Exam NAD, comfortably laying down on the bed no JVD, MMM, no LAD, flapping tremors+ on extended arms, AAOx3, mood was bit irritated, alert RRR, nl s1, s2 no mrg CTAB, no w,c S,distended, nontender,normoactive BS+ old scar warm, no edema, pulses 2/2 IVs and Medications Medications Reviewed: Medications were reviewed in detail Lab and Diagnostics Result Diagram: 09/12/1682709/12/16827 X-Rays, CTs and MRIs Chest x-ray reviewed : Overall nonspecific gas pattern without gross obstruction. Moderate stool is present. Recommend correlation constipation. Assessment & Plan acute, active #decompensated cirrhosis with ascites, newly developed signs of HE gr1. 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 -started lactulose, Rifaximin 550 bid, trends 3BM/d -daily assessment of MS -ascites management below #nonspecific sx, fatigue, confusion, likely in the setting of KATIE, dehydration, HE, monitor sx for now #Recurrent ascites, POA, seemed exudative per info, ?cirrhosis vs infectious/malignancy/ -will get [place] records to verify -awaits US-guided paracentesis today #KATIE on CKD, hyperkalemia, POA, seemed prerenal given diuretics despite decreased dose of lasix, no aldactone vs HRS -continue to hold diuretics for now, held ACEI -i/o, daily wt, avoid renal toxin, -added urine Na, but likely non-diagnostic given lasix use -consider renal consult if renal functions worse -s/p kayexalate in ED, still5.6 will try again, expect more BM with lactulose as well chronic, stable #Diabetic foot ulcer s/p amputation, recently treated also with abx, completed course, will monitor fornow #IDDM type II : Continue with home insulin regimen. Diabetic diet. Hemoglobin A1c #Thrombocytopenia : Secondary to chronic liver disease and cirrhosis. dispo:likely 3-4more days diet: low Na diet SCD Full code Time spent 35min Charly Farmer MD Sep 12, 2016 14:09
[2016-09-12] MEDS: Lactulose 20 Gm/30 mL 30 mL Syrup PO SCH ×2 (15:37→21:14)
--- NOTE | 2016-09-12 15:45 | NUR ---
Paracentesis Patient in bed with drainage thru abdominal puncture sight. Resident present. Draining dolan cloudy drainage. Total of 4800 ml. Tolerated procedure. Denies dizziness with position change or pain. Bandaid dressing applied. Care returned to primary RN, Deloris Gold.
[2016-09-12 17:36] LABS: BFWBC 350 /mm3
[2016-09-12 17:37] LABS: MONOCYTES,BODY FLUID 28 %; OTHER CELLS,BODY FLUID 30
--- NOTE | 2016-09-12 19:41 | NUR ---
Shift note Pt tolerated paracentesis this afternoon, BP/HR assessed to monitor for changes. Blood sugars 173, 291, and 180. Enc pt to ambulate as able. Drsg to toe CDI. Bed in lowest, locked position and call light in reach.
--- NOTE | 2016-09-12 20:07 | DRSVH ---
PROCEDURE: US GUIDED PARACENTESIS, PRIMARY ([id number]) INDICATIONS: ascites TECHNIQUE: The indications, alternatives, benefits, risks, and complications of the procedure were explained to the patient. Written informed consent was obtained and placed in the chart. The abdomen and pelvis were examined sonographically, and an appropriate site was chosen for paracentesis. The skin was pre pared and draped in the usual sterile fashion, and 1% lidocaine was infiltrated from the skin down th rough the peritoneal surface. A 19-gauge catheter-covered needle was then introduced into the perito mckenzie space, the catheter was advanced and the needle was withdrawn, and thereafter peritoneal fluid w as withdrawn. The catheter was then removed and a dressing was applied. The fluid was discarded if the clinician did not order diagnostic testing of the fluid. COMPARISON: [facility], US, US ABDOMEN, 10/06/2015, 7:58. FINDINGS: Access site: Right lower abdomen Needle: One-Step centesis catheter with introducer needle. Fluid volume and description: Cloudy yellowish Fluid sent for diagnostic testin mL Medications: 1% lidocaine for local anaesthesia. Complications: None. IMPRESSION: Successful ultrasound-guided paracentesis. Dictated by: Lisette Tran M.D. on 09/12/2016 at 20:04 Approved by: Lisette Tran M.D. on 09/12/2016 at 20:05
--- NOTE | 2016-09-12 20:26 | NUR ---
Level of activity The pt tolerated the paracentesis this afternoon, reports no pain or discomfort from it. The pt stated he was getting restless. Encouraged the patient to ambulate in the halls. Pt ambulated independently, gait is steady.
[2016-09-13] VITALS (7 sets, daily range): BP systolic 138–161; BP diastolic 74–88; PULSE 67–80; RESP 18–20; O2SAT 98–100
--- NOTE | 2016-09-13 05:26 | NUR ---
Uneventful Night: Pt rested through the night with no complaints of pain or discomfort. Denies SOB, n/v. Encouraged to ambulate when awake. NPO for doppler in am. Call light within reach, using appropriatley. Pleasant and cooperative with care.
[2016-09-13 07:10] LABS: BASOPHILS % (AUTO) 0.6 % (0-3); EOSINOPHILS % (AUTO) 3.4 % (0-5); MONOCYTES % (AUTO) 12.5 % (4-12); Mean Corpuscular Hemoglobin 27.6 pg (27.0-35.0); Mean Corpuscular Volume 85.7 fL (81-100); NEUTROPHILS % (AUTO) 68.7 % (40-74); Platelet Count 69 bil/L (150-400)
[2016-09-13 07:49] LABS: Magnesium 1.4 mg/dL (1.6-2.6); Phosphorus 4.5 mg/dL (2.5-4.9)
[2016-09-13] MEDS: Heparin 5,000 Unit/mL Inj SUBQ SCH ×2 (08:30→20:30)
[2016-09-13] MEDS ORDERED: Magnesium Sulf 4 Gm/100 mL H2O 4 GM in IV Premix 1 EACH IV ONE (10:45)
[2016-09-13] MEDS ORDERED: 0.9% Sodium Chloride 500 ML IV ONE (10:45)
--- NOTE | 2016-09-13 11:04 | NUR ---
Off unit Pt off unit to /s. geotechnical laboratory technician notified. Addendum: 09/13/16 at 1138 by TILA LYONS RN Pt on unit, geotechnical laboratory technician notified.
[2016-09-13] MEDS: Lactulose 20 Gm/30 mL 30 mL Syrup PO SCH ×2 (11:44→20:30)
[2016-09-13] MEDS: MeTOProlol XL 50 mg ER24 Tablet PO SCH ×2 (11:45→21:15)
[2016-09-13] MEDS: Insulin Human REGular 300 Unit/3 mL Inj SUBQ SCH ×2 (11:46→16:46)
--- NOTE | 2016-09-13 11:59 | DRSVH ---
[facility] [address] [place] [address] Echocardiogram Report Name: SASCHA BARBER LStudy Date : 09/13/2016 Height: 70 in Hospital Exam Location: [facility] Weight: 231 lb Gender: Male BSA: 2.2 m2 : 1955 Age: 61 yrs BP: 138/81 mm Hg Reason For Study: Congestive Heart Failure History: CABG, ELDA-bioprosthetic Ordering Physician: HOSPITALIST [facility] Performed By: Marika Davidson Referring Physician: Clem Posada Interpretation Summary There is mild concentric left ventricular hypertrophy. The ejection fraction is estimated to be 60-65%. Patient has had AVR since last exam There is a bioprosthetic aortic valve. The prosthetic aortic valve is not well visualized. There is mild perivalvular regurgitation around the prosthetic aortic valve. The prosthetic aortic valve function is normal. Procedure: A two-dimensional transthoracic echocardiogram with color flow and Doppler was performed. The study quality was technically adequate. Comparison is made with the echocardiogram of 06/13/2015. A contrast injection of Definity was performed to improve assessment of LV function. The patient did well with the contrast. The patient was in normal sinus rhythm during the exam. Left Ventricle: There is mild concentric left ventricular hypertrophy. The left ventricle is normal in size, wall thickness, and systolic function without any focal wall motion abnormalities. The ejection fraction is estimated to be 60-65%. Assessment of diastolic parameters suggests a pseudonormalization pattern, consistent with elevated filling pressures. Right Ventricle: The right ventricle is not well visualized. The right ventricle grossly appears normal in size with probable normal systolic function. Atria: The left atrium is mildly dilated. Right atrial size is normal. The interatrial septum is intact with no evidence for an atrial septal defect. There is no Doppler evidence for an interatrial shunt. Mitral Valve: The mitral valve leaflets appear mildly thickened. There is no mitral regurgitation noted. Aortic Valve: There is a bioprosthetic aortic valve. The prosthetic aortic valve is well-seated. The prosthetic aortic valve is not well visualized. There is mild perivalvular regurgitation around the prosthetic aortic valve. The prosthetic aortic valve function is normal. Tricuspid Valve: The tricuspid valve leaflets are thin and pliable. Pulmonary artery pressures cannot be estimated because of the lack of a measurable TR jet velocity. Pulmonic Valve: The pulmonic valve is not well visualized. There is a trace or physiologic amount of pulmonic regurgitation. Great Vessels: The aortic root is not well visualized. The ascending aorta is mildly enlarged. The IVC is of normal diameter and collapses greater than 50% with a sniff. This suggests a low right atrial pressure of 3 mm Hg. Pericardium/ Pleura There is no pericardial effusion. MMode/2D Measurements & Calculations LVIDd: 4.7 cm LA dimension: 4.6 cm RA long axis LVOT diam LVIDs: 2.5 cm FS: 46.7 % LA A2 area: 24.8 cm RA area asc Aorta EPSS: 1.0 cm LA A4 area: 22.2 cm Diam: 3.5 cm IVSd: 1.3 cm LA length (vol): 6.1 cm : 17.0 cm LVPWd: 1.3 cm LA vol: 76.6 ml RA vol: 40.3 ml LA vol index RA : 18.1 mm2 IVC diam: 1.4 cm LV vasques. diameter/BSA LV sys. diameter/BSA RVD1 (basal) (cm/m^2): 2.1 (cm/m^2): 1.1 Doppler Measurements & Calculations Ao V2 max MV E max rocky MV E/A: 1.0 PA V2 max : 215.3 cm/sec : 124.7 cm/sec Med Peak E' Rocky : 88.2 cm/sec Ao max PG MV A max rocky PA mean PG : 18.5 mmHg : 124.7 cm/sec E/E' med: 20.4 Ao mean PG MV P1/2t: 108.1 msec Lat Peak E' Rocky PA Accel Time : 0.16 sec LVOT Max Rocky MVA(VTI): 2.0 cm2 E/E' lat: 10.0 : 96.1 cm/sec E/e' average: 15.2 Pulm A Revs Dur ELDA(I,D): 1.6 cm sev ratio MV A dur: 0.14 sec MV V2 mean MV P1/2t max rocky Ao V2 mean LV V1 max PG : 83.7 cm/sec : 145.9 cm/sec MV mean PG MVA(P1/2t): 2.0 cm2 Ao V2 VTI: 51.8 cm LV V1 VTI ELDA(V,D): 1.4 cm2 : 25.1 cm MV V2 VTI MV dec time : 0.37 sec PA V2 mean ELDA indexed to BSA Pulm A Revs Dur - MV A : 64.6 cm/sec (cm^2/m^2): 0.71 Dur: -0.05 msec Electronically signed by: Juan Hall on Reading Physician:09/13/2016 11:01 AM
--- NOTE | 2016-09-13 12:17 | PCM.PNMED ---
Subjective Date of Service Sep 13, 2016 Subjective pt felt much better today, no more tremors, not agitated Renal/GI consulted today Exam Vital Signs Vital Sign - Last Date Time Temp Pulse Resp B/P Pulse Ox O2 Delivery O2 Flow Rate FiO2 09/13/16 10:11 36.4 67 20 157/80 100 Room Air Intake and Output 09/12/16 09/12/16 09/13/16 Cumulative From/Thru 15:00 23:00 07:00 09/11/16 11:13 - 09/13/16 05:21 Intake Total 1136 ml 2573 ml Output Total 6300 ml 7300 ml Balance -5164 ml -4727 ml Intake Oral 1136 ml 2073 ml IV Total 500 ml Output Urine Total 1500 ml 2500 ml Other 4800 ml 4800 ml # Voids 1 # Bowel Movements 0 0 Exam NAD, comfortably laying down on the bed no JVD, MMM, no LAD, flapping tremors+ on extended arms, AAOx3, pleasant RRR, nl s1, s2 no mrg CTAB, no w,c S,distended, nontender,normoactive BS+ old scar warm, no edema, pulses 2/2 IVs and Medications Medications Reviewed: Medications were reviewed in detail Lab and Diagnostics Result Diagram: 09/13/1658 09/13/16 0658 X-Rays, CTs and MRIs Chest x-ray reviewed : Overall nonspecific gas pattern without gross obstruction. Moderate stool is present. Recommend correlation constipation. Assessment & Plan acute, active #decompensated cirrhosis with ascites, newly developed signs of HE gr1. 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 TTE 08/23 showed normal EF, stable bioprosthetic s/p AVR. -pt remained symptomatically stable -appreciate GI input, -verified most updated status with Cayla [phone] [facility] liver center, per them, pt developed ascites recently, trying to exclude other possibility causing ascites as CHF, thrombosis. not on LT list yet due to low MELD #KATIE on CKD, hyperkalemia, POA, seemed prerenal given diuretics despite decreased dose of lasix, no aldactone vs HRS. baseline Cr1.x, admitted with 1.5 , mildly improving. -appreciate renal input, likely do albumin challange today -continue to hold diuretics for now, held ACEI -i/o, daily wt, avoid renal toxin, -urine Na>120, likely non-diagnostic given lasix use -s/p kayexalate in ED, still5.6 will try again, expect more BM with lactulose as well chronic, stable #Diabetic foot ulcer s/p amputation, recently treated also with abx, completed course, will monitor fornow #IDDM type II : Continue with home insulin regimen. Diabetic diet. Hemoglobin A1c #Thrombocytopenia : Secondary to chronic liver disease and cirrhosis. dispo:likely 1-2more days, d/c being delayed given new findings on doppler, renal function diet: low Na diet SCD Full code Time spent 65min Charly Farmer MD Sep 13, 2016 12:17
--- NOTE | 2016-09-13 13:57 | DRSVH ---
PROCEDURE: US ABDOMEN DOPPLER INDICATIONS: ascities rule out PVT HVT TECHNIQUE: Real-time scanning was performed of the abdominal and retroperitoneal organs, with image documentatio n. Color and pulse Doppler interrogation was also performed of the hepatic and splenic vessels, or o f the lesion of interest. COMPARISON: None. FINDINGS: Doppler: The main portal vein is patent and there is hepatopedal flow into the liver. There is part ial thrombus seen involving the splenic vein up to the level of the splenoportal confluence. Promine nt splenic varices present. There is normal flow within the hepatic arteries as well as the right mi d and left hepatic veins. IMPRESSION: Partial, nonocclusive thrombus seen within the splenic vein to the level of the splenopor lucrecia confluence otherwise patent portal vein with appropriate hepatopedal flow. Dictated by: Wero KELLER Interpreted: Lulu Mae MD on 09/13/2016 at 13:55 Transcribed by: KIMBER on 09/13/2016 at 13:57 Approved by: Lulu Mae M.D. on 09/13/2016 at 17:14
--- NOTE | 2016-09-13 14:06 | NUR ---
Social Work: Screening Data: Pt is a 61 y/o male admitted for Hyperkalemia, acute renal failure. Pt's PCP is Dr Dutta, pt's insurance is [employer]. EMR reviewed. No d/c planning needs anticipated at this time. 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 Assessment: Pt who is independent at baseline. Plan: Pt will d/c home via POV when medically stable. No d/c planning needs anticipated at this time. 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 ANAHI Rodriguez
--- NOTE | 2016-09-13 15:48 | CONS ---
[address] [address] CONSULTATION REPORT PATIENT: SASCHA BARBER : 1955 MR#: [id number] ADMIT: 09/11/2016 JOB ID: [id number] DATE OF SERVICE: HISTORY OF PRESENT ILLNESS: It was a pleasure seeing the patient at [facility] for evaluation for cirrhosis. This is a 61-year-old gentleman with a complicated medical history. He came in on the 11 of September for tremors, weakness, nausea and dry heaving. The night before, he was at baseline. Then, he woke up like this and because he was shaky with tremors, with fatigue and nausea, he came to the emergency department. In the emergency department, he was noted to have increased abdominal girth despite having 8 L of fluid out at [facility] about a week ago. They also noted hyperkalemia, worsening kidney function with creatinine of 1.53 and because of acute kidney insufficiency, they held the Lasix and spironolactone. Also during the hospitalization, they took about 6 L of fluid out due to recurrent ascites, and the analysis came back as white count of 350 with PMN of 11%. Cultures are pending. Blood cultures thus far are unremarkable. Also during the hospitalization, [facility] Liver Transplant service was contacted, and Liver Transplant service recommended IV albumin 1 mg/kg/24 hours, as well as getting a Doppler ultrasound and echocardiogram. 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 The portal vein was patent with appropriate hepatopetal flow. During this time, and also today, he had no other symptoms other than what are described above. He had no fever or chills. His nausea and vomiting resolved within the first day and currently, he is doing well. He has no nausea, vomiting, fever, chills, headaches, blurry vision. There is no lightheadedness, chest pain, shortness of breath, abdominal pain, blood in the stools, black stools, diarrhea, constipation, skin rash, or joint pain. PAST MEDICAL HISTORY: Includes nonalcoholic cirrhosis with SAPP, CAD with aortic valve replacement, diabetes, high cholesterol, hypertension, colon repair after a tear, gastric Lap-Band, CABG, toe amputation, cholecystectomy, carpal tunnel, an EGD done in 2015, which showed grade 1-2 varices with gastritis and gastric erosion. A colonoscopy was done at the same time. FAMILY HISTORY: CAD, stroke. SOCIAL HISTORY: Denies use of alcohol, tobacco, or drugs. MEDICATIONS HERE: Include metoprolol, gabapentin, insulin, multivitamin. He is also getting Zofran, lactulose, Tylenol p.r.n. PHYSICAL EXAMINATION: The patient is alert and oriented, does appear comfortable. Vitals: Temp 36.4, pulse 67, respirations 20, blood pressure 157/80. Head and neck: No icterus. No lymphadenopathy. Lungs: Clear. Cardiovascular: Regular rate and rhythm with normal S1, S2. Abdomen: Soft, moderately distended without any tenderness with normoactive bowel sounds. Extremities: Some pitting edema. Skin: Shows no obvious jaundice. Radial pulses bilaterally strong and intact. LABORATORY DATA: Hemoglobin 11.0. [facility] informed me that his baseline is around 11. Platelets 69,000. His creatinine today is 1.38. His baseline according to [facility] is 1.1 to 1.2. Potassium 5.5. His AST is 142, ALT 64, alk phos 181, total bili is 1.0. Albumin is 2.9. Amylase is 15. IMPRESSION: This is a gentleman with nonalcoholic steatohepatitis cirrhosis who came in with tremors, weakness, dry heaving and vomiting. After 24 hours, he is fine. They also had to tap his ascites for comfort, and no evidence of infection. The etiology of this acute onset of nausea, vomiting and weakness is unclear. However, he is back to baseline. As requested by [facility], they did an echocardiogram with ejection fraction of 60% to 65% and portal Dopplers. I spoke with Dr. Greenfield's nurse, Cayla, for about half an hour. We spoke in detail, and the conclusion was that the location of the thrombus is kind of unusual. It is located in the splenic vein going into the confluence of splenoportal confluence. There is no obstruction. There is good flow. He does not have any abdominal pain. No fever or chills. Therefore, anticoagulation at this point is probably not indicated. The ultrasound there at [facility] did not show portal vein thrombosis but they did not mention any clots in the splenic vein or splenoportal confluence, so it is unclear whether this is new. However, if there is any kind of acute deterioration, they recommend a transfer to [facility]. They recommend continuing current therapy, and they are willing to see then for possible transplant evaluation early next week. He does not have any evidence of encephalopathy. I would just continue the lactulose on current dose as long as he is not having diarrhea. Cardiopulmonary khan, he does not have any chest pain or shortness of breath. Therefore, nothing really to add. In terms of his cirrhosis, ascites is going to be a major issue. I would not place him back on Lasix or spirolactone. If any deterioration in his creatinine function occurs, consider getting a nephrology consult for hepatorenal syndrome but this could be hepatorenal syndrome type 2 as well. Again, would hold off on the lisinopril for now. There is no evidence of gastrointestinal bleeding, no anemia, no blood in the stool. According to [facility], his baseline hemoglobin is 11. I would put him on Prilosec 20 mg twice a day just because he had a history of gastric erosions in the past. If he starts having discomfort with ascites reaccumulation, would tap the patient for therapeutic purposes. Will follow. JOSE
--- NOTE | 2016-09-13 16:13 | PCM.CHPPOD ---
Subjective Date of service Sep 13, 2016 History of Present Illness 61-year-old male evaluated resting comfortably in bed. Patient recently underwent partial right second toe amputation for treatment of acute osteomyelitis. Patient states that he is currently admitted undergoing testing to determine why he is retaining so much fluid in his mid section. He denies any new issues or complaints regarding his right foot patient states that they discontinued his antibiotics upon admission to the hospital. His dressing appears clean dry and intact. Allergy Allergies: Coded Allergies: shellfish derived (Verified Allergy, Mild, SWELLING, 09/11/16) No Known Allergies (Verified Allergy, Unknown, 09/11/16) Medications Esomeprazole Magnesium (Nexium) 40 Mg Capsule.dr 40 MG PO BID Furosemide (Furosemide) 40 Mg Tablet 40 MG PO QAM Gabapentin (Gabapentin) 300 Mg Capsule 300 MG PO HS Insulin Regular, Human (HUMulin-R U100 Insulin Vial) 100 Unit/1 Ml Vial 30-40 UNITS SUBQ bid IN AM AND DINNER Lisinopril (Lisinopril) 20 Mg Tablet 20 MG PO DAILY Lovastatin (Lovastatin) 10 Mg Tablet 10 MG PO Q48 HRS Metformin (Glucophage) 1,000 Mg Tablet 1,000 MG PO BID Metoprolol Succinate ER (Toprol XL) 100 Mg Tabcr 100 MG PO BID Multivitamin (Multi Vitamin Daily) 1 Each Tablet 1 EACH PO DAILY NPH, Human Insulin Isophane (HUMulin-N U100 Insulin Vial) 100 Unit/1 Ml Vial 30- 40 UNITS SUBQ BID IN AM AND HS Spironolactone (Spironolactone) 50 Mg Tablet 50 MG PO DAILY Past Medical History Surgeries: Yes (aortic valve replacement, quad bypass, angioplasty, colon resection, gall b) Medical History: Surgical History: Social History Hx Alcohol Use: No Hx Substance Use: No Hx Tobacco Use: No Smoking Status: Never Smoker Podiatry Consult Exam Vital Signs Vital Sign - Last Date Time Temp Pulse Resp B/P Pulse Ox O2 Delivery O2 Flow Rate FiO2 09/13/16 15:30 36.3 70 18 141/77 99 Room Air Intake and Output 09/12/16 09/12/16 09/13/16 Cumulative From/Thru 15:00 23:00 07:00 09/11/16 11:13 - 09/13/16 05:21 Intake Total 1136 ml 2573 ml Output Total 6300 ml 7300 ml Balance -5164 ml -4727 ml Intake Oral 1136 ml 2073 ml IV Total 500 ml Output Urine Total 1500 ml 2500 ml Other 4800 ml 4800 ml # Voids 1 # Bowel Movements 0 0 Result Diagram: 09/13/16 0658 09/13/16 0658 Lab Test 09/11/16 11:28 09/11/16 15:31 09/12/16 08:28 09/12/16 09:22 Hemoglobin A1c 6.5% (4.8-5.6) Troponin T 0.010ug/L (0.0-0.011) Lipase 43U/L (13-60) Hold Mcguire Top Tube Received (Received) Urine Color Yellow (YELLOW) Urine Appearance Clear (CLEAR,HAZY) Urine pH 7.0 (5.0-8.0) Urine Specific [place] 1.015 (1.003-1.035) Urine Protein Negativemg/dL (NEG,TRACE) Urine Glucose (UA) 250mg/dL (NEGATIVE) Urine Ketones Negativemg/dL (NEGATIVE) Urine Occult Blood Trace (NEGATIVE) Urine Nitrite Negative (NEGATIVE) Urine Bilirubin Negative (NEGATIVE) Urine Urobilinogen 1.0mg/dL (NORMAL) Urine Leukocyte Esterase Negative (NEGATIVE) Urine RBC 0-2/hpf (0-2) Urine WBC 0-5/hpf (0-5) Urine Epithelial Cells None/hpf (NONE-MOD) Urine Crystals None seen (NONE SEEN) Urine Bacteria Few/hpf (NONE-FEW) Urine Hyaline Casts None/lpf (NONE) Urine Granular Casts None seen (NONE SEEN) Urine Waxy Casts None seen (NONE SEEN) Urine Red Blood Cell Casts None seen (NONE SEEN) Urine White Blood Cell Casts None seen (NONE SEEN) Urine Mucus None seen (None Seen) Urine Trichomonas None seen (NONE SEEN) Urine Yeast None (NONE SEEN) Urinalysis Comment None Urine Culture Reflexed Not indicated Prothrombin Time 13.3sec (8.1-12.5) Prothromb Time International Ratio 1.24ratio Ammonia 68ug/dL (18-53) Lactate Dehydrogenase 412U/L (100-190) Urine Random Sodium 125mEq/L Test 09/12/16 16:24 09/13/16 06:58 Body Fluid Source Peritoneal fluid Body Fluid Color Straw (Clear) Body Fluid Appearance Turbid Body Fluid WBC 350/mm3 Body Fluid RBC 1688/mm3 Body Fluid Polynuclear WBCs 11% Body Fluid Lymphocytes 31% Body Fluid Monocytes 28% Body Fluid Eosinophils 0% Body Fluid Basophils 0% Body Fluid Total Protein 2.5g/dL Body Fluid Albumin 0.9g/dL (.) Body Fluid Lactate Dehydrogenase 69U/L Peritoneal Fluid Glucose 266mg/dL Amylase Level 15U/L (28-100) White Blood Count 5.1th/mm3 (3.8-10.1) Red Blood Count 3.98mil/mm3 (4.40-5.80) Hemoglobin 11.0g/dL (13.8-17.2) Hematocrit 34.1% (41.0-50.0) Mean Corpuscular Volume 85.7fL (81-100) Mean Corpuscular Hemoglobin 27.6pg (27.0-35.0) Mean Corpuscular Hemoglobin Concent 32.3% (32.0-37.0) Red Cell Distribution Width 19.9% (12.3-15.4) Platelet Count 69bil/L (150-400) Neutrophils (%) (Auto) 68.7% (40-74) Lymphocytes (%) (Auto) 14.6% (14-46) Monocytes (%) (Auto) 12.5% (4-12) Eosinophils (%) (Auto) 3.4% (0-5) Basophils (%) (Auto) 0.6% (0-3) Sodium Level 136mEq/L (134-144) Potassium Level 5.5mEq/L (3.5-5.2) Chloride Level 105mEq/L (97-108) Carbon Dioxide Level 19mmol/L (18-29) Blood Urea Nitrogen 21mg/dL (8-27) Creatinine 1.38mg/dL (0.76-1.27) Estimat Glomerular Filtration Rate 55mL/min (>59) Glucose Level 259mg/dL (60-99) Lactic Acid Level 1.4mmol/L (0.4-2.0) Calcium Level 8.7mg/dL (8.5-10.1) Phosphorus Level 4.5mg/dL (2.5-4.9) Magnesium Level 1.4mg/dL (1.6-2.6) Total Bilirubin 1.0mg/dL (0.0-1.2) Aspartate Amino Transf (AST/SGOT) 142U/L (0-50) Alanine Aminotransferase (ALT/SGPT) 64U/L (0-44) Alkaline Phosphatase 181U/L (25-160) Total Protein 6.5g/dL (6.4-8.4) Albumin 2.9g/dL (3.4-5.0) Exam General: Alert, Oriented X3, Cooperative, No Acute Distress Lower Extremities: Right: Extremity warm Lower Extremity Pulses: Palpable: Right Dorsalis Pedis Right Posterior Tibal Podiatry WOUND : Wound Location/Description Right second digit partial amputation site incision is well coapted with no signs of dehiscence or infection all sutures are intact and in place no surrounding erythema no open wound Assessment & Plan Assessment Stable status post partial right second toe amputation Problems: Plan Right second digit amputation site inspected today. The wound appears healthy. Every other stitch was removed with plan for removal of remaining stitches next week. A dry sterile gauze dressing was applied today and is to be left clean dry and intact. This patient has been instructed to follow-up in office within 1 week of discharge from the hospital and he will keep his dressing clean dry and intact until his follow-up visit. If this patient remains admitted podiatry will evaluate next week. Please contact with any questions or concerns regarding his care. No need for further antibiotic treatment involving his right foot at this time. Robby Martinez DPM Sep 13, 2016 16:13
--- NOTE | 2016-09-13 16:23 | CONS ---
[address] [address] CONSULTATION REPORT PATIENT: SASCHA BARBER : 1955 MR#: [id number] ADMIT: 09/11/2016 JOB ID: [id number] DATE OF SERVICE: 09/13/2016 NEPHROLOGY CONSULTATION: REQUESTING PHYSICIAN: Dr. Farmer REASON FOR CONSULTATION: 1. Management of abnormal kidney function. 2. Complaint nausea, vomiting. PRESENT ILLNESS: This is a 61-year-old male with significant past medical history of liver cirrhosis secondary to SAPP, type 2 diabetes, hypertension, dyslipidemia, aortic stenosis status post TAVR, coronary artery disease status post CABG who presented to the hospital on September 11 due to nausea and vomiting. The day of the admission, the patient started having abdominal cramps, nausea, vomiting and dry heaves. He had bilious vomitus. He recently had abdominal paracentesis 9-10 days ago. At that time, 8 L ascites were removed. The patient again had abdominal paracentesis yesterday with 4.8 L ascites removed. He came in with the serum creatinine of 1.53, potassium of 5.8. His current serum creatinine is 1.38 with a potassium of 5.5. In review of his record, his baseline serum creatinines have ranged between 1.07-1.58 over the past year. The patient has been on lisinopril for a number of years. Recently, he was started on Aldactone in July 2016. Of note, the patient was also treated for chronic 2nd toe ulcers. He was recently prescribed Bactrim 800/160 one tablet every 12 hours. The patient denied history of fever, chills, chest pain, dysuria, hematuria. He denied history of GI bleed. He reports having abdominal paracentesis only two times. The patient is not aware of having kidney disease. He does have history of type 2 diabetes for more than 15 years. He reports no history of retinopathy. PAST MEDICAL HISTORY: 1. Chronic liver cirrhosis secondary to SAPP complicated by ascites status post abdominal paracentesis x2. Last one was yesterday. 2. Type 2 diabetes. 3. Hypertension. 4. Dyslipidemia. 5. Coronary artery disease status post CABG. 6. Aortic stenosis status post TAVR, transcutaneous aortic valve replacement. 7. Chronic right toe ulcers status post debridement. SURGICAL HISTORY: 1. Status post cholecystectomy. 2. Status post toe amputation. 3. Status post CABG. 4. Status post gastric lap band. 5. Colonic repair. FAMILY HISTORY: Positive for heart disease, MD in his mother. Positive heart disease, hypertension and diabetes in his father. SOCIAL: The patient denied current use of alcohol, tobacco or illicit drugs. ALLERGIES: SHELL FISH DERIVATIVE. HOME MEDICATIONS: 1. Lasix 40 mg once a day. 2. Gabapentin 300 mg at bedtime. 3. Humulin R. 4. Lisinopril 20 mg once a day. 5. Lovastatin 10 mg every 48 hours. 6. Metformin 1000 mg twice a day. 7. Metoprolol-XL 100 mg a day. 8. Multivitamin 1 tablet every day. 9. Humulin N. 10. Aldactone 50 mg once a day. REVIEW OF SYSTEMS: Constitutional: No fever, no chills. HEENT: No headaches. No blurry vision. Cardiovascular: No chest pain or shortness of breath. Pulmonary: No cough. No hemoptysis. GI: As per HPI. : No dysuria. No hematuria. Skin: No rashes. No excoriation. Hematology: No active bleeding. No bruises. Neuro: No neurological deficit. Endocrine: No polyuria, polydipsia. GENERAL: The patient in no apparent distress, and alert and oriented x3. VITAL SIGNS: as documented HEENT: Head is normocephalic and atraumatic. Extraocular muscles are intact. Pupils are equal, round, and reactive to light and accommodation. Nares appeared normal. Mouth is well hydrated and without lesions. Mucous membranes are moist. Posterior pharynx clear of any exudate or lesions. NECK: Supple, no elevation of JVD, No carotid bruits. No lymphadenopathy or thyromegaly. LUNGS: Clear to auscultation, equal breath sounds bilaterally, no wheezing, no rhonchi no rales. HEART: Normal S1/S2, Regular rate and rhythm, no murmurs, rubs or gallops. 2+ pules throughout. ABDOMEN: Soft, nontender, mildly distended, positive fluid wave, positive bowel sounds. EXTREMITIES: Without any cyanosis, clubbing, rash, lesions or edema. NEUROLOGIC: The patient is oriented to person, place and time. Strength and sensation are grossly intact. SKIN: No ulceration or induration present. LABORATORY: Sodium 136, potassium 5.5, chloride 105, bicarbonate 19, BUN 21, creatinine 1.38, magnesium 1.4, total bilirubin 1.0. AST 142, ALT 64, alkaline phos 181, albumin 2.9. Lactic acid 1.4. X-RAY: An abdominal x-ray showed overall nonspecific gas pattern without gross obstruction. Abdominal sonogram showed partial, nonocclusive thrombus seen within the splenic vein to the level of the splenoportal confluence. Otherwise patent portal vein with appropriate hepatopetal flow. ASSESSMENT: 1. Acute kidney injury on chronic kidney disease. His baseline serum creatinine was around 1.2. He came in with the initial serum creatinine of 1.53. Of note, he was started on Aldactone in July 2016 treating ascites. He came in with nausea and vomiting. He is also taking Lasix. Of note Bactrim was prescribed treating for foot ulcers. The etiology of acute kidney injury is rather due to multifactorial including intravascular volume depletion and medication induced. His urine sodium is over 100. It is rather related to the effect of diuretics. I would like to hold lisinopril and diuretics. I will give him gentle IV fluid with normal saline 60 cc/hour for 500 cc only preventing fluid overload. 2. Hyperkalemia secondary to medications including lisinopril, Aldactone and Bactrim. The patient received medical management. Current potassium came down to 5.5. 3. Decompensated liver cirrhosis. 4. Ascites status post abdominal paracentesis with 4.8 L fluid removed. 5. History of type 2 diabetes with insulin dependent. 6. Diabetic foot ulcer status post amputation. 7. Hypertension. 8. Dyslipidemia. 9. Aortic stenosis status post transcutaneous aortic valve replacement. 10. Coronary artery disease status post coronary artery bypass graft. PLAN: 1. Give gentle IV fluid, normal saline 60 cc/hour, 500 cc. 2. Hold all diuretics. 3. Hold lisinopril. 4. Hold Bactrim. 5. Repeat CBC in the morning. I expect patient to be discharged home within 24 hours. He will follow up with us within 1-2 weeks. Thank you for allowing me to participate in the care of your patient. JOSE
--- NOTE | 2016-09-13 18:41 | NUR ---
BM/pain Pt taking Lactulose as ordered, frequent loose stools today. Denies any pain/discomfort. Pt is to be NPO after MN for scope in AM. Bed in lowest, locked position and call light in reach.
--- NOTE | 2016-09-13 19:10 | NUR ---
Bowel movements Pt is taking Lactulose as ordered. He has had frequent loose stools throughout the shift. Pt states he would like something to "solidify" his BM. Notified RN.
[2016-09-14] VITALS (12 sets, daily range): BP systolic 74–152; BP diastolic 55–87; PULSE 61–95; RESP 10–18; O2SAT 85–100
[2016-09-14 07:10] LABS: BASOPHILS % (AUTO) 0.6 % (0-3); EOSINOPHILS % (AUTO) 3.3 % (0-5); Mean Corpuscular Hemoglobin 28.1 pg (27.0-35.0); Mean Corpuscular Volume 86.4 fL (81-100); NEUTROPHILS % (AUTO) 68.7 % (40-74); Platelet Count 75 bil/L (150-400)
[2016-09-14 07:27] LABS: Magnesium 1.7 mg/dL (1.6-2.6); Phosphorus 4.3 mg/dL (2.5-4.9)
[2016-09-14] MEDS ORDERED: Magnesium Sulf 2 Gm/50mL Water 2 GM in IV Premix 1 EACH IV ONE (07:45)
[2016-09-14] MEDS: Heparin 5,000 Unit/mL Inj SUBQ SCH ×2 (08:30→19:46)
[2016-09-14] MEDS: Insulin Human REGular 300 Unit/3 mL Inj SUBQ SCH ×3 (09:24→16:31)
[2016-09-14] MEDS ORDERED: Propofol 10,000 mCg/mL 20 mL Inj ONE (11:49)
--- NOTE | 2016-09-14 13:12 | PCM.PNMED ---
Subjective Date of Service Sep 14, 2016 Subjective Abdominal sonogram showed partial, nonocclusive thrombus seen within the splenic vein to the level of the splenoportal confluence. Otherwise patent portal vein with appropriate hepatopetal flow. His and the patient were that anticoagulant will likely be started. He is being NPO for EGD. Serum creatinine is improving. He has no new complaints today. Exam Vital Signs Vital Sign - Last Date Time Temp Pulse Resp B/P Pulse Ox O2 Delivery O2 Flow Rate FiO2 09/14/16 10:30 37.2 65 18 114/69 99 Room Air Intake and Output 09/13/16 09/13/16 09/14/16 Cumulative From/Thru 15:00 23:00 07:00 09/11/16 11:13 - 09/14/16 06:33 Intake Total 2526 ml 0 ml 5099 ml Output Total 400 ml 7700 ml Balance 2526 ml -400 ml -2601 ml Intake Oral 2072 ml 0 ml 4145 ml IV Total 454 ml 954 ml Output Urine Total 400 ml 2900 ml Other 4800 ml # Voids 6 3 10 # Bowel Movements 6 0 6 Exam General: AAOx3, NAD. HEENT: Sclerae anicteric. PERRLA Neck : Cervical lymphadenopathy: Trachea midline, no JVD Chest: Chest wall tenderness, normal respiratory effort Heart : Regular rate and rhythm, no gallop, no murmur Lung: Clear bilaterally with auscultation, crackles, no wheezing Abdomen: soft, NT, mild distension, no HSM, Extremitytrace edema, right foot with dressing in place. Skin : No rash, no ulcers Lab and Diagnostics Result Diagram: 09/14/16 0650 09/14/16 0650 X-Rays, CTs and MRIs Chest x-ray reviewed : Overall nonspecific gas pattern without gross obstruction. Moderate stool is present. Recommend correlation constipation. Assessment & Plan ASSESSMENT: 1. Acute kidney injury on chronic kidney disease. - I do not think he has HRS. - The etiology of KATIE due to intravascular volume depletion and medications ( bactrim, lasix, lisinopril and aldactone) induced KATIE. - His kidney function has improved after we stopped all insults and IVF administered. 2. Hyperkalemia secondary to medications including lisinopril, Aldactone, and Bactrim. - improving. 3. Decompensated liver cirrhosis. 4. Ascites status post abdominal paracentesis with 4.8 L fluid removed. 5. Partial, nonocclusive thrombus splenic vein. 6. History of type 2 diabetes with insulin dependent. 7. Diabetic foot ulcer status post amputation. 8. Hypertension. 9. Dyslipidemia. 10 Aortic stenosis status post transcutaneous aortic valve replacement. 11. Coronary artery disease status post coronary artery bypass graft. PLAN: 1. Continue hold all diuretics. 2. d/c IVF. 3. Pending EGD today. 4. Will sign off, follow up with renal in 1-2 weeks. 5. Low Na diet, 2 g Na per day. 6. Resume ACEI/low dose lasix +/- aldactone when more stable and K < 5.0. VTE Mechanical Devices: Venous Foot Pump Reanna Pelletier MD Sep 14, 2016 13:12
--- NOTE | 2016-09-14 13:22 | PCM.PNMED ---
Subjective Date of Service Sep 14, 2016 Subjective pt kept in NPO denied n/v/abdominal pain awaiting EGD this AM Exam Vital Signs Vital Sign - Last Date Time Temp Pulse Resp B/P Pulse Ox O2 Delivery O2 Flow Rate FiO2 09/14/16 10:30 37.2 65 18 114/69 99 Room Air Intake and Output 09/13/16 09/13/16 09/14/16 Cumulative From/Thru 15:00 23:00 07:00 09/11/16 11:13 - 09/14/16 06:33 Intake Total 2526 ml 0 ml 5099 ml Output Total 400 ml 7700 ml Balance 2526 ml -400 ml -2601 ml Intake Oral 2072 ml 0 ml 4145 ml IV Total 454 ml 954 ml Output Urine Total 400 ml 2900 ml Other 4800 ml # Voids 6 3 10 # Bowel Movements 6 0 6 Exam NAD, comfortably laying down on the bed no JVD, MMM, no LAD, flapping tremors+ on extended arms, AAOx3, pleasant RRR, nl s1, s2 no mrg CTAB, no w,c S,distended, nontender,normoactive BS+ old scar warm, no edema, pulses 2/2 IVs and Medications Medications Reviewed: Medications were reviewed in detail Lab and Diagnostics Result Diagram: 09/14/16 0650 09/14/16 0650 X-Rays, CTs and MRIs Chest x-ray reviewed : Overall nonspecific gas pattern without gross obstruction. Moderate stool is present. Recommend correlation constipation. Assessment & Plan acute, active #decompensated cirrhosis with ascites, newly developed signs of HE gr1. 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 TTE 08/23 showed normal EF, stable bioprosthetic s/p AVR. -pt remained symptomatically stable -appreciate GI input, awaiting EGD to exclude varices prior to initiating AC. -verified most updated status with Cayla [phone] [facility] liver filer, per them, pt developed ascites recently, trying to exclude other possibility causing ascites as CHF, thrombosis. not on LT list yet due to low MELD #KATIE on CKD, hyperkalemia, POA, seemed prerenal given diuretics despite decreased dose of lasix, no aldactone, baseline Cr1.2, admitted with 1.5, responded to [id number] 09/13. -no more IVF per renal, -continue to hold diuretics for now, held ACEI, will likely to hold upon d/c. -i/o, daily wt, avoid renal toxin, -urine Na>120, likely non-diagnostic given lasix use -s/p kayexalate in ED, still5.6 will try again, expect more BM with lactulose as well chronic, stable #Diabetic foot ulcer s/p amputation, recently treated also with abx, completed course, will monitor fornow #IDDM type II : Continue with home insulin regimen. Diabetic diet. Hemoglobin A1c #Thrombocytopenia : Secondary to chronic liver disease and cirrhosis. dispo:likely 1-2more days, pending EGD, possible AC afterwards. diet: low Na diet SCD Full code VTE Mechanical Devices: Venous Foot Pump Time spent 35min Charly Farmer MD Sep 14, 2016 13:22
--- NOTE | 2016-09-14 14:04 | PATH ---
SURGICAL PATHOLOGY Attending Physician:See Additional MD CASE STATUS: Signed Out PATIENT NAME: SASCHA BARBER PID: [id number] : 1955 DATE COLLECTED:09/12/2016 00:00 SPECIMEN: Peritoneal Fluid CLINICAL HISTORY: Peritoneal Fluid ICD-10 code not given FINAL DIAGNOSIS: See diagnosis. NOTE: PERITONEAL FLUID CYTOLOGY SPECIMEN (CELL BLOCK, THINPREP, AND CYTOSPIN): NEGATIVE FOR MALIGNANT CELLS. CELLS PRESENT INCLUDE NUMEROUS REACTIVE MESOTHELIAL CELLS WELL LYMPHOCYTES AND A FEW PMNs. ICD10 CODE R18.8 GROSS DESCRIPTION: Received fresh on 09/13/2016 is approximately 35 cc of cloudy yellow fluid. Prepared are one cell block, one ThinPrep and one Cytospin slides. Vo INTRAOP CONSULT DIAGNOSIS: ICD-9 CODES: CPT CODES: 1: 67013, 03265, 86046 Electronically Signed Out Cecilio Guevara MD [facility] Pathology [facility] [address], [place] [address] Technical component performed at [facility], [facility] [address], [place], [address]
--- NOTE | 2016-09-14 14:23 | NUR ---
Off unit-EGD Pt transported with JOHN CONRAD. Taken off tele, monitor aware. Pt denied pain. VSS see separate report. Addendum: 09/14/16 at 1440 by WILLIAM HEALY RN Pt was NPO from midnight. At 08, primary RN called JOHN and was told pt can be on clears until 11. Pt was strictly NPO after 1100 today. BG high, medicated with insulin per orders. Addendum: 09/14/16 at 1626 by WILLIAM HEALY RN Pt returned to [facility] at 1615. Pt denies pain. Back on tele, monitor aware
[2016-09-14] MEDS ORDERED: Lactated Ringer's 1,000 ML IV ONE (14:39)
[2016-09-14] MEDS ORDERED: Lactated Ringer's 1,000 ML IV SCH (15:06)
--- NOTE | 2016-09-14 15:06 | PCM.HPANE ---
Patient Data Surgeon Admitting Provider:Myles Pedraza MD Attending Provider:Myles Pedraza MD Primary Care Physician:Patt Dutta MD Other Provider: Reason for Visit Hyperkalemia, Acute Renal Failure Ht/WT & BMI Height (Feet): 5 Height (Inches): 10.00 Weight (Kilograms): 104.700 Body Mass Index 33.00 Allergies Coded Allergies: shellfish derived (Verified Allergy, Mild, SWELLING, 09/11/16) No Known Allergies (Verified Allergy, Unknown, 09/11/16) Past Anesthesia History Anesthesia History: Denies:: Abnormal Airway, Anesthesia Reactions, Difficult Intubation, Fam Anesthesia Reaction, Fam Malignant Hypertherm, Malignant Hyperthermia Diabetes History Hx Diabetes?: Yes Glycemic Control: Insulin & Oral Medication Current Bedside Blood Glucose: 221 MRSA MRSA: No Medications Hypertension Medication: Yes Active Scripts Lisinopril 20 Mg Murxoo06 Mg PO DAILY 30 Days Prov:Kvng Wahl MD 10/07/15 Reported Medications Spironolactone 50 Mg Sfnufe62 Mg PO DAILY #30 09/11/16 Metformin (Glucophage)1,000 Mg Tablet1,000 Mg PO BID #180 09/11/16 Gabapentin 300 Mg Eridvsl268 Mg PO HS #90 09/11/16 Esomeprazole Magnesium (Nexium)40 Mg Capsule.dr40 Mg PO BID Ref 0 09/23/15 Furosemide 40 Mg Rzahxc65 Mg PO QAM 09/21/15 Insulin Regular, Human (HUMulin-R U100 Insulin Vial)100 Unit/1 Ml Irps43-09 Units SUBQ bid IN AM AND DINNER 10/13/14 Multivitamin (Multi Vitamin Daily)1 Each Tablet1 Each PO DAILY 30 Days Ref 0 10/13/14 Metoprolol Succinate ER (Toprol XL)100 Mg Fluno213 Mg PO BID 10/13/14 Lovastatin 10 Mg Oryyad15 Mg PO Q48 HRS 10/13/14 NPH, Human Insulin Isophane (HUMulin-N U100 Insulin Vial)100 Unit/1 Ml Vial30- 40 Units SUBQ BID IN AM AND HS 10/13/14 Discontinued Reported Medications Spironolactone 100 Mg Qvfejm923 Mg PO DAILY #30 TABLET Ref 0 08/17/16 Gabapentin 100 Mg Tkirqyq545 Mg PO DAILY 30 Days Ref 0 07/31/16 Metformin ER 1,000 Mg Tablet1,000 Mg PO BID 09/21/15 Discontinued Scripts Amoxicillin/Clav K 875-125 mg (Augmentin 875-125 mg)1 Each Tablet1 Tablet PO BID #28 TABLET Ref 0 Prov:Waqar Crawley 08/02/16 History History of ENT Problems?: No HEENT History: Denies:: Abnormal Airway Cataracts Difficult Intubation Dysphagia Glaucoma Hearing Problem Sinus Problem Hx of Heart Problems?: Yes Cardiovascular History: Positive for:: Cardiac Surgery (cabg, TAVR- december 2015) Edema Hypertension Valvular Heart Disease Denies:: AICD Atrial Fibrillation Chest Pain Congestive Heart Failure Heart Murmur Irregular Heartbeat Pacemaker Thrombophlebitis Hx of Respiratory Problem?: No Respiratory History: Positive for:: Chest Surgery (CABG, TAVR) Denies:: Asthma COPD Cough Dyspnea Emphysema Hemoptysis Oxygen Administration Pneumonia Tuberculosis Hx Neurologic Problems?: No Neurological History: Positive for:: Dizziness (when on warfarin) Denies:: CVA Dementia Headaches Parkinson's Disease Seizures Hx of GI Problems?: Yes Gastrointestinal History: Positive for:: Cirrhosis (liver, ascites) Diverticulitis Denies:: Gastroesphageal Reflux Gastrointestinal Bleeding Hepatitis Hiatal Hernia Rectal Bleeding Hx of Problems?: No Genitourinary History: Denies:: Kidney Stones Urinary Tract Infection Male Hx: Denies:: Prostate Problems Scrotal Mass Testicular Surgery Skin History: Positive for:: History Skin Disorders? (chronic ulcer right 2nd toe- current admission problem) Denies:: Pressure Ulcers Hx Musculoskeletal Problems?: No Musculoskeletal History: Denies:: Back Injury Fibromyalgia Joint Replacement Musculoskeletal Trauma Hx of Psycho/Social Problems?: No Psycho Social History: Denies:: Anxiety Bipolar Disorder Hx Depression Suicide Attempt Hx Surgeries?: Yes (aortic valve replacement, quad bypass, angioplasty, colon resection, gall b) Hx Any Other Health Problems?: Yes Other History: Positive for:: Endocrine Disease (DMII) Hospitalization Denies:: Cancer Thyroid Disease History Blood Transfusions: Positive for:: Accept Blood Products? Denies:: Blood Transfuse Reaction Blood Transfusions Hx Diabetes: YesBedside Blood Glucose: 221 Hx Alcohol Use: NoHx Substance Use: No Smoking Status: Never Smoker Have You Smoked inLast 12 mo: No Stop/Bang Treated for Sleep Apnea?: Yes Do You Have a CPAP Machine?: Yes (at bedside) EZ Risk Assessment: Low Risk, <3 Yes Risk Assessment Category Category 1A: Patient has history of documented sleep apnea, and HAS NOT received any narcotic, sedative or anesthesia administration during this stay. Category 1B: Patient has history of documented sleep apnea, and HAS received any narcotic , sedative or anesthesia administration during this stay Category 2: Patient has SUSPECTED Obstructive Sleep Apnea, and HAS received any narcotic , sedative or anesthesia administration during this stay. Category 3: Patient has SUSPECTED Obstructive Sleep Apnea and HAS NOT received narcotic, sedative or anesthesia administration during this stay. Category 4: Outpatient in Procedural Areas with known sleep apnea or who screen positive for High Risk via the STOP/BANG questionnaire. Exam Exam Vital Signs Vital Signs Date Time Temp Pulse Resp B/P Pulse Ox O2 Delivery O2 Flow Rate FiO2 09/14/16 14:39 36.7 61 152/84 99 Room Air 09/14/16 14:24 36.8 95 17 111/87 98 Room Air 09/14/16 14:00 36.7 64 18 152/84 99 Room Air 09/14/16 10:30 37.2 65 18 114/69 99 Room Air 09/14/16 08:00 63 General Appearance: Oriented X3 HEENT/AIRWAY: MP 2 Lungs: Normal Air Movement Heart: Regular Rate/Rhythm Meds/Labs/Diagnostics Admission Meds Current Medications Magnesium Sulfate/ Premix (Magnesium Sulf 2 Gm/50mL Water/ IV Premix) 50 ml @ 50 mls/hr ONCE ONCE IV Last administered on 09/14/16t 11:00; Start 09/14/16 at 07:45; Stop 09/14/16 at 08:44; Status DC Bedside Blood Glucose: 221 Labs Test 09/11/16 11:28 09/11/16 15:31 09/12/16 08:28 09/12/16 09:22 Hemoglobin A1c 6.5% (4.8-5.6) Troponin T 0.010ug/L (0.0-0.011) Lipase 43U/L (13-60) Hold Mcguire Top Tube Received (Received) Urine Color Yellow (YELLOW) Urine Appearance Clear (CLEAR,HAZY) Urine pH 7.0 (5.0-8.0) Urine Specific Hostetter 1.015 (1.003-1.035) Urine Protein Negativemg/dL (NEG,TRACE) Urine Glucose (UA) 250mg/dL (NEGATIVE) Urine Ketones Negativemg/dL (NEGATIVE) Urine Occult Blood Trace (NEGATIVE) Urine Nitrite Negative (NEGATIVE) Urine Bilirubin Negative (NEGATIVE) Urine Urobilinogen 1.0mg/dL (NORMAL) Urine Leukocyte Esterase Negative (NEGATIVE) Urine RBC 0-2/hpf (0-2) Urine WBC 0-5/hpf (0-5) Urine Epithelial Cells None/hpf (NONE-MOD) Urine Crystals None seen (NONE SEEN) Urine Bacteria Few/hpf (NONE-FEW) Urine Hyaline Casts None/lpf (NONE) Urine Granular Casts None seen (NONE SEEN) Urine Waxy Casts None seen (NONE SEEN) Urine Red Blood Cell Casts None seen (NONE SEEN) Urine White Blood Cell Casts None seen (NONE SEEN) Urine Mucus None seen (None Seen) Urine Trichomonas None seen (NONE SEEN) Urine Yeast None (NONE SEEN) Urinalysis Comment None Urine Culture Reflexed Not indicated Prothrombin Time 13.3sec (8.1-12.5) Prothromb Time International Ratio 1.24ratio Ammonia 68ug/dL (18-53) Lactate Dehydrogenase 412U/L (100-190) Urine Random Sodium 125mEq/L Test 09/12/16 16:24 09/13/16 06:58 09/14/16 06:50 Body Fluid Source Peritoneal fluid Body Fluid Color Straw (Clear) Body Fluid Appearance Turbid Body Fluid WBC 350/mm3 Body Fluid RBC 1688/mm3 Body Fluid Polynuclear WBCs 11% Body Fluid Lymphocytes 31% Body Fluid Monocytes 28% Body Fluid Eosinophils 0% Body Fluid Basophils 0% Body Fluid Total Protein 2.5g/dL Body Fluid Albumin 0.9g/dL (.) Body Fluid Lactate Dehydrogenase 69U/L Peritoneal Fluid Glucose 266mg/dL Amylase Level 15U/L (28-100) Lactic Acid Level 1.4mmol/L (0.4-2.0) White Blood Count 5.1th/mm3 (3.8-10.1) Red Blood Count 3.74mil/mm3 (4.40-5.80) Hemoglobin 10.5g/dL (13.8-17.2) Hematocrit 32.3% (41.0-50.0) Mean Corpuscular Volume 86.4fL (81-100) Mean Corpuscular Hemoglobin 28.1pg (27.0-35.0) Mean Corpuscular Hemoglobin Concent 32.5% (32.0-37.0) Red Cell Distribution Width 19.7% (12.3-15.4) Platelet Count 75bil/L (150-400) Neutrophils (%) (Auto) 68.7% (40-74) Lymphocytes (%) (Auto) 14.2% (14-46) Monocytes (%) (Auto) 13.0% (4-12) Eosinophils (%) (Auto) 3.3% (0-5) Basophils (%) (Auto) 0.6% (0-3) Sodium Level 136mEq/L (134-144) Potassium Level 5.3mEq/L (3.5-5.2) Chloride Level 103mEq/L (97-108) Carbon Dioxide Level 19mmol/L (18-29) Blood Urea Nitrogen 19mg/dL (8-27) Creatinine 1.19mg/dL (0.76-1.27) Estimat Glomerular Filtration Rate 66mL/min (>59) Glucose Level 291mg/dL (60-99) Calcium Level 8.4mg/dL (8.5-10.1) Phosphorus Level 4.3mg/dL (2.5-4.9) Magnesium Level 1.7mg/dL (1.6-2.6) Total Bilirubin 0.8mg/dL (0.0-1.2) Aspartate Amino Transf (AST/SGOT) 76U/L (0-50) Alanine Aminotransferase (ALT/SGPT) 53U/L (0-44) Alkaline Phosphatase 182U/L (25-160) Total Protein 6.3g/dL (6.4-8.4) Albumin 2.8g/dL (3.4-5.0) Plan Impression Patient chart reviewed, patient interviewed and anesthestic plan with risks, benefits, and alternatives discussed, and informed consent obtained. NPO Status: 08/31/16 Tonio Erwin MD Sep 14, 2016 15:06
[2016-09-14] MEDS ORDERED: Ondansetron 2 mg/mL 2 mL Inj IVPUSH PRN (15:10)
[2016-09-14] MEDS ORDERED: MetoCLOpramide 5 mg/mL 2 mL Inj IVPUSH PRN (15:10)
--- NOTE | 2016-09-14 15:32 | PCM.ENDEGD ---
EGD Date of Service: Sep 14, 2016 Physician Myles Pedraza MD Pre Procedure Diagnosis: Cirrhosis, pre-transplant evaluation EGD Post Procedure Dx & Findings: Esophageal varices erosive gastropathy duodenal erosions Portal Hypertensive gastropathy Procedure Esophagogastroduodenoscopy PROCEDURE IN DETAIL: The patient was placed in left lateral decubitus position. Bite block was placed. Scope lubricated, placed in posterior pharynx, passed through the cricopharyngeus and esophagus, slowly advanced the entire length of the gastric pouch, pylorus was identified, scope passed through the pylorus and descending portion of duodenum, withdrawn in the antrum, retroflexed upon itself for view of fundus and cardia. Scope was then withdrawn through the oropharynx. Esophagus revealed 1 column of grade 2 varices from proximal esophagus all the way to the GE junction. Along the mid esophagus I saw further 2 columns of grade 2 varices extending into the GE junction. There was 1 column of grade 1 varices. No stigmata on any of these varices. Stomach was entered. Stomach was easily inflatable and deflatable using air. Retroflexion was done. Portal hypertensive gastropathy with snake skin like pattern mucosa. Antrum revealed erosive antral neuropathy with friability of the mucosa. Duodenum showed punctate esophageal erosions less than a millimeter in size. Distal duodenum showed normal villous structures with normal folds. 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 Hold if heart rate less than 50 or systolic blood pressure less than 90. This is for primary prophylaxis against esophageal variceal bleeding. If patient is dizzy lightheaded on the propranolol, would stop and have the patient underwent another EGD for banding of varices. I will defer to switch to the primary care physician. If he cannot be switched from metoprolol to propranolol, we need to band his varices. Please let us know if this which is not possible. Follow-up with liver service. I spoke to them yesterday and they should be able to see him either Saturday or Saturday this week. Prilosec 20 mg twice a day. Avoid NSAIDs H. pylori antibody test. Presedation Assessment Risks and Benefits Informed consent was obtained from the patient after all risks and benefits including but not limited to drug reaction, infection, pain, bleeding, perforation, as well as alternatives were discussed. Patient monitoring Continuous pulse oximetry, cardiac monitoring, blood pressure monitoring, IV access, and oxygen at 2L per nasal cannula. Complications There were no periprocedural complications identified. Post Procedure Plan Post Procedure Recommendations 1. Restrict activities today. 2. Resume normal activities in the morning. 3. Resume medications. 4. GERD behavioral modification: - Avoid fatty, acidic, spicy, large meals - Do not lie down after meals - Do not eat or drink anything for at least 2 1/2 hours before going to bed at night - Discontinue tobacco and alcohol - Decrease or avoid caffeine - Avoid chocolate and mints - Decrease weight - Avoid aspirin and non steroidal anti-inflammatory agents (NSAID) such as Aleve, Advil, Mobic, Naproxen, Ibuprofen, etc 5. Add proton pump inhibitor. Take 30 minutes before 1st meal of the day. 6. Patient informed of normal post procedure side effects as bloating, drowsiness, blood streaking in the stool 7. If gastric biopsy reveal H.pylori, continue with appropriate treatment 8. If small bowel biopsy reveals celiac, continue with appropriate treatment 9. Please don't hesitate to call me with any questions Jonny Lagunas MD Sep 14, 2016 15:32
--- NOTE | 2016-09-14 15:56 | PCM.ANEP2 ---
Post Anesthesia Evaluation ASA/CMS Post Anesthesia VS in Patient's Normal Range?: Yes Resp Stable; Airway Patent?: Yes CV Function & Hydration Stable: Yes Mental Status Recovered?: Yes Pain control Satisfactory?: Yes N/V Control Satisfactory?: Yes Tonio Erwin MD Sep 14, 2016 15:56
--- NOTE | 2016-09-14 15:56 | PCM.ANEP1 ---
Post Anesthesia Phase 1 PACU Phase 1 Assessment Date of Service: Sep 14, 2016 Vital Signs Vital Signs Date Time Temp Pulse Resp B/P Pulse Ox O2 Delivery O2 Flow Rate FiO2 09/14/16 15:35 70 12 94/64 98 Nasal Cannula 3 09/14/16 15:32 74 10 74/55 85 Nasal Cannula 3 09/14/16 14:39 36.7 61 152/84 99 Room Air 09/14/16 14:24 36.8 95 17 111/87 98 Room Air 09/14/16 14:00 36.7 64 18 152/84 99 Room Air 09/14/16 10:30 37.2 65 18 114/69 99 Room Air 09/14/16 08:00 63 Anesthetic Administered: MAC Level of Alertness: Awake, talking Pain: No Pain Scale Score: 4 Nausea or Vomiting: No Oxygen Delivery: Room Air Lungs: Normal Air Movement Tonio Erwin MD Sep 14, 2016 15:56
[2016-09-14] MEDS: Lactulose 20 Gm/30 mL 30 mL Syrup PO SCH ×2 (16:29→19:45)
[2016-09-14] MEDS: MeTOProlol XL 50 mg ER24 Tablet PO SCH ×2 (16:31→20:37)
--- NOTE | 2016-09-14 16:32 | NUR ---
Shift report/AM meds->NPO Meds given late d/t being NPO Heparin withheld d/t low plt count Pleasant pt, able to make needs known. uses call light appropriately. Denies pain. Bed in low position, call light in reach.
[2016-09-14] MEDS: Pantoprazole 40 mg ER24 Tablet PO SCH (20:37)
[2016-09-15 01:48] VITALS: BP 138/85; PULSE 66; RESP 18; O2SAT 99
[2016-09-15 05:38] VITALS: BP 157/84; PULSE 63; RESP 18; O2SAT 100
[2016-09-15] MEDS: Pantoprazole 40 mg ER24 Tablet PO SCH (05:59)
[2016-09-15 06:00] VITALS: PULSE 65
[2016-09-15 06:45] LABS: BASOPHILS % (AUTO) 0.6 % (0-3); EOSINOPHILS % (AUTO) 4.1 % (0-5); Mean Corpuscular Hemoglobin 28.2 pg (27.0-35.0); Mean Corpuscular Volume 82.6 fL (81-100); NEUTROPHILS % (AUTO) 66.5 % (40-74); Platelet Count 87 bil/L (150-400)
[2016-09-15 07:12] LABS: Magnesium 1.6 mg/dL (1.6-2.6)
[2016-09-15] MEDS: Heparin 5,000 Unit/mL Inj SUBQ SCH (08:30)
[2016-09-15] MEDS ORDERED: Pantoprazole 20 mg ER24 Tablet PO SCH (08:30)
[2016-09-15 09:15] VITALS: PULSE 70
[2016-09-15] MEDS: Insulin Human REGular 300 Unit/3 mL Inj SUBQ SCH (09:28)
[2016-09-15] MEDS: Lactulose 20 Gm/30 mL 30 mL Syrup PO SCH (09:28)
[2016-09-15 09:49] VITALS: BP 128/76; PULSE 68; RESP 18; O2SAT 100
--- NOTE | 2016-09-15 10:10 | PCM.PNMED ---
Subjective Date of Service Sep 15, 2016 Subjective Patient's feels well. Denies any abdominal pain and blood in the stools black stools. He denies any lightheadedness dizziness. He said he is able to all normally. He was started on propranolol and Toprol was stopped. Exam Vital Signs Vital Sign - Last Date Time Temp Pulse Resp B/P Pulse Ox O2 Delivery O2 Flow Rate FiO2 09/15/16 09:49 36.8 68 18 128/76 100 Room Air 09/14/16 15:35 3 Intake and Output 09/14/16 09/14/16 09/15/16 Cumulative From/Thru 15:00 23:00 07:00 09/11/16 11:13 - 09/15/16 06:54 Intake Total 78 ml 500 ml 200 ml 5877 ml Output Total 7700 ml Balance 78 ml 500 ml 200 ml -1823 ml Intake Oral 400 ml 200 ml 4745 ml IV Total 78 ml 100 ml 1132 ml Output Urine Total 2900 ml Other 4800 ml # Voids 4 3 17 # Bowel Movements 0 3 9 Exam Physical examination: Patient is alert and oriented comfortable Head and neck no icterus Lungs clear Heart and vascular regular rate rhythm and no mass was 2 Abdomen soft nontender moderately distended. The distention is worse today than yesterday. However is not having any pain or discomfort. Normoactive bowel sounds Skin no jaundice Lab and Diagnostics Result Diagram: 09/15/16 0605 09/15/16 0605 X-Rays, CTs and MRIs Chest x-ray reviewed : Overall nonspecific gas pattern without gross obstruction. Moderate stool is present. Recommend correlation constipation. Assessment & Plan Cirrhosis complicated by acute renal insufficiency from diuretics and hyperkalemia Neurologically he is intact alert and oriented 3. Continue lactulose, Rifaximin 550 bid, trends 3BM/d He has no blood in the stools or black stools. EGD was done which showed esophageal varices grade 2 and propanolol started. He seems to be tolerating this pretty well. His target heart rate is low 50s. Once we get this started [facility] can readjust to hit the target heart rate. EGD also showed erosive gastropathy and portal hypertensive gastropathy. No NSAIDs. I would put him back on his outpatient Nexium. I spoke with Cayla [phone] [facility]. They said they will follow up with him early next week. The issue with ascites at this point is that it is her reaccumulating. He is not uncomfortable therefore would hold off on paracentesis. Once he gets uncomfortable, continue therapeutic paracentesis. We will deferred the kidney issues and high potassium issue to the primary service. We will sign off. He can follow up with the [facility] folks early next week. [facility] said they should be able to see him early next week. VTE Mechanical Devices: Intermittant Pneumatic CD Jonny Lagunas MD Sep 15, 2016 10:10
[2016-09-15] MEDS ORDERED: PROP20TA5 PO (10:54)
[2016-09-15] MEDS ORDERED: LACT10SO60 PO (10:54)
[2016-09-15] MEDS ORDERED: RIFA550T3 PO (10:54)
--- NOTE | 2016-09-15 11:04 | PCM.DIMED ---
Discharge Instructions Date of Service Sep 15, 2016 Dates of Hospitalization Sep 11, 2016 at 15:37 Discharge Diagnosis Discharge Diagnosis Decompensated cirrhosis, presumably due to SAPP Ascites Partial, nonocclusive splenic vein thrombus Probable Grade1 hepatic encephalopathy non-bleeding varices, gastric/duodenal erosions KATIE, prerenal Medication Instructions Please stop taking lasix, spironolactone, lisinopril for the time being Please note that metoprolol switched to Propranolol 10mg tid, dose will be adjusted by your liver center Diet Low fat, Low Sodium Activity No restrictions Call your provider Vomitting, Excessive diarrhea Patient Instructions You were hospitalized with fatigue, fluid in your belly associated with liver cirrhosis, kidney injury. Please note that since water pills are stopped, it is more important than ever to keep low salt diet, less than 2g per day. Please schedule early follow up with your liver center, Follow-up plan Please follow up with your PCP on next Saturday as scheduled and liver center early next week. Follow-up Provider: Patt Dutta MD Follow-up with PCP in: 1 week Charly Farmer MD Sep 15, 2016 10:59
--- NOTE | 2016-09-15 11:45 | NUR ---
Discharge Pt discharged at this time, all belongings gathered and returned to pt. VSS, no complains of increased pain, abd pressure/discomfrt. IV D/Cd intact, tele monitor removed, Hard copy of scripts given to pt to fill. Discharge packet printed and reviewed with pt and spouse. Pt taken from [facility] by wheelchair by this RN, to be transported home in private vehicle driven by spouse.
--- NOTE | 2016-09-15 12:07 | NUR ---
Social Work-discharge: Data:EMR Reviewed. Pt is on day 4 of hospitalization for hyperkalemia per H&P. Pt is medically stable to discharge home today. Pt has been up independent in his room per RN. No discharge needs identified. All updated and agreeable to plan. Assessment:Pt who is independent at baseline. Plan:Pt to discharge home today via POV. No discharge needs identified. All updated and agreeable to plan. ANAHI Ross
--- NOTE | 2016-09-15 16:19 | PCM.DC.MED ---
Discharge Summary Date of Service Sep 15, 2016 Dates of Hospitalization Date of Hospital Admission Sep 11, 2016 at 15:37 Date of Discharge: Sep 15, 2016 Providers: Admitting Physician: Myles Pedraza MD Primary Care Physician: Patt Dutta MD Attending Physician: Myles Pedraza MD Diagnosis at Time of Discharge Diagnosis at Time of Discharge Decompensated cirrhosis, presumably due to DOBBINS Ascites, likely due to cirrhosis Partial, nonocclusive splenic vein thrombus Probable Grade1 hepatic encephalopathy non-bleeding varices, gastric/duodenal erosions KATIE on CKD, prerenal hyperkalemia chronic, stable problems. #Diabetic foot ulcer s/p amputation, #IDDM type II #Thrombocytopenia Consultations Gastroenterology Procedures XRay, CTs & MRIs PROCEDURE: X-RAY ACUTE ABDOMINAL SERIES ([id number]) INDICATIONS: nausea and vomiting TECHNIQUE: One view chest and two views of the abdomen were acquired. COMPARISON: None. FINDINGS: Surgical changes and devices: Sternal wires consistent with previous bypass procedure. Valve stent is noted. Presumed feeding tube is noted overlying the left upper quadrant. Cholecystectomy clips as well as a lower pelvic clips are noted. Chest: Lungs are clear. There is a mild appearance of increased pulmonary vascularity. Heart size is normal. No pleural effusions. No pneumoperitoneum. Abdomen: Bowel gas pattern demonstrates moderate stool. The stomach is mildly distended. No suspicious calcifications. Visualized solid organ contours appear normal. Bones: No suspicious bony lesions. IMPRESSION: Overall nonspecific gas pattern without gross obstruction. Moderate stool is present. Recommend correlation constipation. Dictated by: Lulu Mae M.D. on 09/11/2016 at 13:42 Approved by: Lulu Mae M.D. on 09/11/2016 at 13:44 Other Diagnostics PROCEDURE: US ABDOMEN DOPPLER INDICATIONS: ascities rule out PVT HVT TECHNIQUE: Real-time scanning was performed of the abdominal and retroperitoneal organs, with image documentation. Color and pulse Doppler interrogation was also performed of the hepatic and splenic vessels, or of the lesion of interest. COMPARISON: None. FINDINGS: Doppler: The main portal vein is patent and there is hepatopedal flow into the liver. There is partial thrombus seen involving the splenic vein up to the level of the splenoportal confluence. Prominent splenic varices present. There is normal flow within the hepatic arteries as well as the right mid and left hepatic veins. IMPRESSION: Partial, nonocclusive thrombus seen within the splenic vein to the level of the splenoportal confluence otherwise patent portal vein with appropriate hepatopedal flow. Dictated by: Wero Sepulveda [facility] Interpreted: Lulu Mae MD on 09/13/2016 at 13: 55 Transcribed by: KIMBER on 09/13/2016 at 13:57 Approved by: Lulu Mae M.D. on 09/13/2016 at 17:14 PROCEDURE: US GUIDED PARACENTESIS, PRIMARY ([id number]) INDICATIONS: ascites TECHNIQUE: The indications, alternatives, benefits, risks, and complications of the procedure were explained to the patient. Written informed consent was obtained and placed in the chart. The abdomen and pelvis were examined sonographically, and an appropriate site was chosen for paracentesis. The skin was prepared and draped in the usual sterile fashion, and 1% lidocaine was infiltrated from the skin down through the peritoneal surface. A 19-gauge catheter-covered needle was then introduced into the peritoneal space, the catheter was advanced and the needle was withdrawn, and thereafter peritoneal fluid was withdrawn. The catheter was then removed and a dressing was applied. The fluid was discarded if the clinician did not order diagnostic testing of the fluid. COMPARISON: [facility], , US ABDOMEN, 10/06/2015, 7:58. FINDINGS: Access site: Right lower abdomen Needle: One-Step centesis catheter with introducer needle. Fluid volume and description: Cloudy yellowish Fluid sent for diagnostic testin mL Medications: 1% lidocaine for local anaesthesia. Complications: None. IMPRESSION: Successful ultrasound-guided paracentesis. Dictated by: Lisette Tran M.D. on 09/12/2016 at 20:04 Approved by: Lisette Tran M.D. on 09/12/2016 at 20:05 Brief History HPI obtained by on 09/11 This is a 61 years old male with past medical history of liver cirrhosis secondary to Dobbins, coronary artery disease status post CABG, valvular heart disease status post transcutaneous aortic valve replacement diabetes insulin-dependent diabetes mellitus type II , hypertension, hyperlipidemia, and non-alcoholic cirrhosis with ascites, who presents to the emergency department with the complaint of Ivett has weakness, fatigue, nausea and dry heaves . Patient also complaining of being shaky but denied chills or fever, no chest pain or shortness of breath, no abdominal pain, no diarrhea, no constipation . He was seen recently at [facility] where he underwent therapeutic abdominal paracentesis with removal of 8 L of fluid . Over the course of last week or so , he noticed increased abdominal girth and bloating,. He was admitted in July for a diabetic toe infection. The toe was amputated and he has been on antibiotics since. He does not know the name of the antibiotic but stated something sounds like sulfa. His will bring his full list of medication later today he said. ER workup revealed hyperkalemia and acute renal failure. Hospital Course acute problems, #decompensated cirrhosis due to presumably DOBBINS, with ascites, newly developed signs of HE gr1. Pt looked irritated and showed asterixis on admission, based on suspicion of HE, started lactulose, Rifaximin 550 bid, pt maintained good mental status, tremors no longer observed. #nonspecific sx, fatigue, confusion, likely in the setting of KATIE, dehydration, HE, resolved upon d/c #relatively new onset ascites, POA, verified most updated status with [facility] center RN, per them, pt developed ascites recently, trying to exclude other possibility causing ascites as CHF, thrombosis. not on LT list yet due to low MELD. pt underwent therapeutic/diagnostic tap on 09/12, 4.8liters were removed, fluid showed transudatives, no signs of infection, cytology was negative. Abd doppler showed Partial, nonocclusive thrombus seen within the splenic vein to the level of the splenoportal confluence, given this location, Dr.Lee SCHWAB and [facility] agreed that patient likely needs anticoagulation tx, underwent preAC EGD 09/14 which showed Esophageal varices, non bleeding, erosive gastropathy, duodenal erosions, Portal Hypertensive gastropathy. Given findings, Toprol switched to [id number] tid, pt tolerated well. Plan is to follow up with [facility] early next week, possibly start anticoagulation tx, further adjustment of propranolol. pt also will be back on home dose of PPI. Patient remained asymptomatic, HD stable, afebrile upon d/c, deemed safe to d/c to home. #KATIE on CKD, hyperkalemia, POA, seemed prerenal given diuretics despite decreased dose of lasix, bactrim use for foot ulcer. Baseline Cr1.2, admitted with 1.5, responded to IVF, renal function further improved, back to baseline upon d/c. Diuretics, ACEI still held upon d/c, recommended to resume by PCP or GI in the clinic. #hyperkalemia, POA, stable on 5.3-5.8 without EKG chg, likely related to KATIE, pt received multiple dose of kayexalate but level didn't chg significantly. chronic, stable problems. #Diabetic foot ulcer s/p amputation, recently treated also with abx, completed course recently. #IDDM type II : Continue with home insulin regimen. #Thrombocytopenia : Secondary to chronic liver disease and cirrhosis, stable Cirrhosis complicated by acute renal insufficiency from diuretics and hyperkalemia Neurologically he is intact alert and oriented 3. Continue lactulose, Rifaximin 550 bid, trends 3BM/d He has no blood in the stools or black stools. EGD was done which showed esophageal varices grade 2 and propanolol started. He seems to be tolerating this pretty well. His target heart rate is low 50s. Once we get this started [place] can readjust to hit the target heart rate. EGD also showed erosive gastropathy and portal hypertensive gastropathy. No NSAIDs. I would put him back on his outpatient Nexium. I spoke with [facility] [phone] [place]. They said they will follow up with him early next week. The issue with ascites at this point is that it is her reaccumulating. He is not uncomfortable therefore would hold off on paracentesis. Once he gets uncomfortable, continue therapeutic paracentesis. We will deferred the kidney issues and high potassium issue to the primary service. We will sign off. He can follow up with the [place] [facility] folks early next week. [place] [facility] said they should be able to see him early next week. Exam Vital Signs (Last) Date Time Temp Pulse Resp B/P Pulse Ox O2 Delivery O2 Flow Rate FiO2 09/15/16 09:49 36.8 68 18 128/76 100 Room Air 09/14/16 15:35 3 Exam NAD, comfortably laying down on the bed AAOx3, no flapping tremors no JVD, MMM, no LAD RRR, nl s1, s2 no mrg CTAB, no w,c S,mildly distended,NT,normoactive BS+ warm, no edema, pulses 2/2 Test 09/11/16 11:28 09/11/16 15:31 09/12/16 08:28 09/12/16 09:22 Hemoglobin A1c 6.5% (4.8-5.6) Troponin T 0.010ug/L (0.0-0.011) Lipase 43U/L (13-60) Hold Mcguire Top Tube Received (Received) Urine Color Yellow (YELLOW) Urine Appearance Clear (CLEAR,HAZY) Urine pH 7.0 (5.0-8.0) Urine Specific [place]le 1.015 (1.003-1.035) Urine Protein Negativemg/dL (NEG,TRACE) Urine Glucose (UA) 250mg/dL (NEGATIVE) Urine Ketones Negativemg/dL (NEGATIVE) Urine Occult Blood Trace (NEGATIVE) Urine Nitrite Negative (NEGATIVE) Urine Bilirubin Negative (NEGATIVE) Urine Urobilinogen 1.0mg/dL (NORMAL) Urine Leukocyte Esterase Negative (NEGATIVE) Urine RBC 0-2/hpf (0-2) Urine WBC 0-5/hpf (0-5) Urine Epithelial Cells None/hpf (NONE-MOD) Urine Crystals None seen (NONE SEEN) Urine Bacteria Few/hpf (NONE-FEW) Urine Hyaline Casts None/lpf (NONE) Urine Granular Casts None seen (NONE SEEN) Urine Waxy Casts None seen (NONE SEEN) Urine Red Blood Cell Casts None seen (NONE SEEN) Urine White Blood Cell Casts None seen (NONE SEEN) Urine Mucus None seen (None Seen) Urine Trichomonas None seen (NONE SEEN) Urine Yeast None (NONE SEEN) Urinalysis Comment None Urine Culture Reflexed Not indicated Prothrombin Time 13.3sec (8.1-12.5) Prothromb Time International Ratio 1.24ratio Ammonia 68ug/dL (18-53) Lactate Dehydrogenase 412U/L (100-190) Urine Random Sodium 125mEq/L Test 09/12/16 16:24 09/13/16 06:58 09/14/16 06:50 09/15/16 06:05 Body Fluid Source Peritoneal fluid Body Fluid Color Straw (Clear) Body Fluid Appearance Turbid Body Fluid WBC 350/mm3 Body Fluid RBC 1688/mm3 Body Fluid Polynuclear WBCs 11% Body Fluid Lymphocytes 31% Body Fluid Monocytes 28% Body Fluid Eosinophils 0% Body Fluid Basophils 0% Body Fluid Total Protein 2.5g/dL Body Fluid Albumin 0.9g/dL (.) Body Fluid Lactate Dehydrogenase 69U/L Peritoneal Fluid Glucose 266mg/dL Amylase Level 15U/L (28-100) Lactic Acid Level 1.4mmol/L (0.4-2.0) White Blood Count 5.4th/mm3 (3.8-10.1) Red Blood Count 4.08mil/mm3 (4.40-5.80) Hemoglobin 11.5g/dL (13.8-17.2) Hematocrit 33.7% (41.0-50.0) Mean Corpuscular Volume 82.6fL (81-100) Mean Corpuscular Hemoglobin 28.2pg (27.0-35.0) Mean Corpuscular Hemoglobin Concent 34.1% (32.0-37.0) Red Cell Distribution Width 19.8% (12.3-15.4) Platelet Count 87bil/L (150-400) Neutrophils (%) (Auto) 66.5% (40-74) Lymphocytes (%) (Auto) 13.6% (14-46) Monocytes (%) (Auto) 15.0% (4-12) Eosinophils (%) (Auto) 4.1% (0-5) Basophils (%) (Auto) 0.6% (0-3) Sodium Level 132mEq/L (134-144) Potassium Level 5.4mEq/L (3.5-5.2) Chloride Level 101mEq/L (97-108) Carbon Dioxide Level 19mmol/L (18-29) Blood Urea Nitrogen 18mg/dL (8-27) Creatinine 1.07mg/dL (0.76-1.27) Estimat Glomerular Filtration Rate 74mL/min (>59) Glucose Level 305mg/dL (60-99) Calcium Level 8.5mg/dL (8.5-10.1) Phosphorus Level 4.0mg/dL (2.5-4.9) Magnesium Level 1.6mg/dL (1.6-2.6) Total Bilirubin 0.9mg/dL (0.0-1.2) Aspartate Amino Transf (AST/SGOT) 77U/L (0-50) Alanine Aminotransferase (ALT/SGPT) 54U/L (0-44) Alkaline Phosphatase 208U/L (25-160) Total Protein 6.6g/dL (6.4-8.4) Albumin 2.9g/dL (3.4-5.0) Discharge Medications Discharge Medications Esomeprazole Magnesium (Nexium) 40 Mg Capsule.dr 40 MG PO BID (Reported) Gabapentin (Gabapentin) 300 Mg Capsule 300 MG PO HS (Reported) Insulin Regular, Human (HUMulin-R U100 Insulin Vial) 100 Unit/1 Ml Vial 30-40 UNITS SUBQ bid IN AM AND DINNER (Reported) Lovastatin (Lovastatin) 10 Mg Tablet 10 MG PO Q48 HRS (Reported) Metformin (Glucophage) 1,000 Mg Tablet 1,000 MG PO BID (Reported) Multivitamin (Multi Vitamin Daily) 1 Each Tablet 1 EACH PO DAILY (Reported) NPH, Human Insulin Isophane (HUMulin-N U100 Insulin Vial) 100 Unit/1 Ml Vial 30- 40 UNITS SUBQ BID IN AM AND HS (Reported) Propranolol HCl (Propranolol HCl) 20 Mg Tablet 10 MG PO TID Prescribed by: CHARLY NOEL MD Rifaximin (Xifaxan) 550 Mg Tablet 550 MG PO BID Prescribed by: CHARLY NOEL MD As needed Lactulose (Lactulose) 20 Gm/30 Ml Solution 20 GM PO BID PRN PRN For Bowel Movement Prescribed by: CHARLY NOEL MD Additional med instructions Please stop taking lasix, spironolactone, lisinopril for the time being Please note that metoprolol switched to Propranolol 10mg tid, dose will be adjusted by your liver center Followup Plan Disposition: home Follow-up plan Please follow up with your PCP on next Saturday as scheduled and liver center early next week. Discharge Diet: Low fat, Low Sodium Discharge Activity: No restrictions Patient Instructions You were hospitalized with fatigue, fluid in your belly associated with liver cirrhosis, kidney injury. Please note that since water pills are stopped, it is more important than ever to keep low salt diet, less than 2g per day. Please schedule early follow up with your liver center, Follow-up Provider: Patt Dutta MD Follow-up with PCP in: 1 week Time spent 65min Charly Noel MD Sep 15, 2016 16:00
== END 2016-09-15 11:50 | disposition home or self-care (01) | DRG 300 ==
LOC: SED 11:09 → MPC 15:37 → OBSVTOIN 15:37 → MPC 17:46
PROVIDERS: ADMIT Internal Medicine; ATTEND Internal Medicine
PROC: 0W9G3ZX Drainage of Peritoneal Cavity, Percutaneous Approach, Diagnostic (ICD-10-PCS; 2016-09-12)
PROC: 0DJ08ZZ Inspection of Upper Intestinal Tract, Via Natural or Artificial Opening Endoscopic (ICD-10-PCS; principal; 2016-09-14 15:15)
DX: I86.4 Gastric varices (principal); N17.9 Acute kidney failure, unspecified; R18.8 Other ascites; I82.719 Chronic embolism and thrombosis of superficial veins of unspecified upper extremity; K75.81 Nonalcoholic steatohepatitis (NASH); E87.5 Hyperkalemia; K74.60 Unspecified cirrhosis of liver; E11.9 Type 2 diabetes mellitus without complications; I25.10 Atherosclerotic heart disease of native coronary artery without angina pectoris; E78.5 Hyperlipidemia, unspecified; E86.0 Dehydration; K31.9 Disease of stomach and duodenum, unspecified; D69.6 Thrombocytopenia, unspecified; Z98.61 Coronary angioplasty status; Z79.4 Long term (current) use of insulin; Z95.2 Presence of prosthetic heart valve; Z89.421 Acquired absence of other right toe(s); T50.995A Adverse effect of other drugs, medicaments and biological substances, initial encounter; Y92.009 Unspecified place in unspecified non-institutional (private) residence as the place of occurrence of the external cause

== ENCOUNTER 2016-09-26 01:25 | Day surgery (SDC) | payer OTHER ==
[2016-09-26] VITALS (11 sets, daily range): BP systolic 134–156; BP diastolic 68–78; PULSE 74–81; RESP 16; O2SAT 99
[~2016-09-26 01:25] MED LIST changes: -AMOX-366 PO; -FURO40TA4 PO; -GABA-500 PO; +GABA-502 PO; +LACT10SO60 PO; -LISI-567 PO; -METF-496 PO; +METF1000 PO; +PROP20TA5 PO; +RIFA550T3 PO; -SPIR100T3 PO; -TOP100 PO
--- NOTE | 2016-09-26 09:15 | NUR ---
Admitted for a planned paracentesis. Accompanied with his and has had this procedure before at [facility]. Plan is for Ultrasound to come to bedside and start procedure once permitted.
[2016-09-26] MEDS ORDERED: RIFA550T3 PO (09:20)
[2016-09-26] MEDS ORDERED: SPIR50TA2 PO (09:22)
[2016-09-26] MEDS ORDERED: FURO40TA4 PO (09:22)
--- NOTE | 2016-09-26 11:04 | NUR ---
Paracentesis completed - total 6.3 liters out - plan if to give 100cc of 25% albumin IV for the amount of fluid collected.
[2016-09-26] MEDS ORDERED: Albumin 25% 200 ML IV ONE (11:55)
--- NOTE | 2016-09-26 14:09 | NUR ---
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 Pt complains of no pain, or dizziness. Follow up is planned at both [facility] and Dr Dutta in the near future. D/C instructions reviewed with patient and patient's .
== END 2016-09-26 23:59 | disposition home or self-care (01) ==
LOC: SOUO 01:25
PROVIDERS: ATTEND Radiology Diagnostic Radiology
DX: R18.8 Other ascites (principal)

== ENCOUNTER 2016-11-09 11:11 | Inpatient (IN) | payer OTHER ==
[~2016-11-09] VITALS: Ht 177.8 cm; Wt 94.8 kg
[~2016-11-09 11:11] MED LIST changes: +FURO40TA4 PO; +SPIR50TA2 PO
[2016-11-09 11:13] VITALS: BP 159/85; PULSE 78; RESP 16; O2SAT 99
--- NOTE | 2016-11-09 11:49 | ED.REPORT ---
HPI-General Illness Date of Service Nov 09, 2016 ED Provider: Lacey Orellana MD A 61 year old male with a history of non-alcoholic cirrhosis with ascites, HTN and diabetes presents to the ED complaining of increasing vomiting and nausea onset 4 days go. [facility] has concern for encephalopathy, not being sure if it is from infection or dehydration. The patient reports that lactulose has been causing abdominal pain and nausea, and he stopped taking it yesterday. He took lactulose 3 days ago with 2 BM, and 2 days ago with 1 BM that day. Associated symptoms include mild diarrhea and loss of appetite. Per , he has had productive cough, has lost 3 pounds in the last 4 days, has decreased urination, and had mild confusion this morning. He denies any SOB, swelling , fever, or pain. He Visited [place] on 10[place]2016 and had TIPS procedure performed through jugular . He saw the surgeon this week, and the patient appeared to be doing well. thinks that patient may have started encephalopathy 4 days ago. Nursing Notes Stated Complaint: ENCEPHALOPATHY Chief Complaint: Neuro Symptoms/ Deficits Nursing Notes Reviewed: Yes Allergies: Coded Allergies: shellfish derived (Verified Allergy, Mild, SWELLING, 11/09/16) No Known Allergies (Verified Allergy, Unknown, 11/09/16) Scheduled Esomeprazole Magnesium (Nexium) 40 Mg Capsule.dr 40 MG PO BID Furosemide (Furosemide) 40 Mg Tablet 40 MG PO DAILY Gabapentin (Gabapentin) 300 Mg Capsule 300 MG PO HS Insulin Regular, Human (HUMulin-R U100 Insulin Vial) 100 Unit/1 Ml Vial 30-40 UNITS SUBQ bid IN AM AND DINNER Lovastatin (Lovastatin) 10 Mg Tablet 10 MG PO Q48 HRS Metformin (Glucophage) 1,000 Mg Tablet 1,000 MG PO BID Multivitamin (Multi Vitamin Daily) 1 Each Tablet 1 EACH PO DAILY NPH, Human Insulin Isophane (HUMulin-N U100 Insulin Vial) 100 Unit/1 Ml Vial 30- 40 UNITS SUBQ BID IN AM AND HS Propranolol HCl (Propranolol HCl) 20 Mg Tablet 10 MG PO TID Spironolactone (Spironolactone) 50 Mg Tablet 50 MG PO DAILY Scheduled PRN Lactulose (Lactulose) 20 Gm/30 Ml Solution 20 GM PO BID PRN PRN For Bowel Movement Rifaximin (Xifaxan) 550 Mg Tablet 550 MG PO BID PRN PRN For Agitation Patient uses this with lactulose 20mg PRN for SX of HE General Time Seen by MD: 11:45 Chief Complaint Vomiting Hx Obtained From: Patient Arrived By: Walk-in Sudden in Onset?: No Onset Occurred: 4 days ago Symptom Duration: Intermittent Location: : Abdomen Severity: Current: Moderate Severity: Maximum: Moderate Recent Healthcare: Recent doctor visit Similar Sx Previous: No Past Medical History Past Medical History Non-alcoholic cirrhosis with ascites IN Diverticulitis ulcer Reports: Coronary artery disease, Diabetes mellitus, Hyperlipidemia, Hypertension Past Surgical History Colon repair after a tear Gastric lap band Coronary bypass graft surgery Toe amputation TIPS procedure, trhough jugular 10/29/16 CABG, TAVR Reports: Cholecystectomy Reports: Carpal tunnel Family History Reports: Coronary artery disease, Diabetes mellitus, Stroke Smoking History Never Smoker Social History Alcohol Use: Denies alcohol use Drug Use: Denies drug use Other Social History: Good social support, Lives alone, Local resident 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 Ambulatory Status Independent Review of Systems loss of appetite. Decreased urination. Denies pain. Full Review of Systems Constitutional: Reports: Recent wt loss (3 pounds), Denies: Fever Respiratory: Reports: Prod cough, clear, Denies: Shortness of breath GI: Reports: Abdominal pain, Diarrhea, Nausea, Vomiting Musculoskeletal: Denies: Extremity swelling Skin: Denies Rash Neurologic: Reports: Confusion Complete sys rev & neg: except as marked. Physical Exam Vital Signs Vital Signs Date Time Temp Pulse Resp B/P Pulse Ox O2 Delivery O2 Flow Rate FiO2 11/09/16 15:54 72 12 153/63 98 Room Air 11/09/16 13:49 80 12 176/79 98 11/09/16 11:13 36.2 78 16 159/85 99 Room Air Initial VS: Reviewed General/Constitutional: Awake, Alert Head / Eyes: Atraumatic, Normocephalic, PERRL, EOMI ENT: Atraumatic, Mucous membranes moist Respiratory / Chest: Atraumatic Mild crackles in lungs. Cardiovascular: Heart rate NL, Regular rhythm, Heart sounds NL, No murmurs 2+ lower extremity edema. Abdomen: Soft, Non-tender, No guarding, No rebound, BS normoactive, No distention (no clinical ascites) Skin: Warm, Dry Right flank has erythematous patches most consistent with eczematous plaques Neurologic: Oriented X3 (subtle confusion with higher cognitive functioning), Speech NL Interpretation & Diagnostics Lab Results Interpretation Result Diagram: 11/09/16 1154 11/09/16 1154 Test 11/09/16 11:54 11/09/16 15:21 White Blood Count 7.2th/mm3 (3.8-10.1) Red Blood Count 4.13mil/mm3 (4.40-5.80) Hemoglobin 12.3g/dL (13.8-17.2) Hematocrit 35.1% (41.0-50.0) Mean Corpuscular Volume 85.0fL (81-100) Mean Corpuscular Hemoglobin 29.8pg (27.0-35.0) Mean Corpuscular Hemoglobin Concent 35.0% (32.0-37.0) Red Cell Distribution Width 17.1% (12.3-15.4) Platelet Count 71bil/L (150-400) Neutrophils (%) (Auto) 72.4% (40-74) Lymphocytes (%) (Auto) 12.8% (14-46) Monocytes (%) (Auto) 9.8% (4-12) Eosinophils (%) (Auto) 4.6% (0-5) Basophils (%) (Auto) 0.4% (0-3) Sodium Level 136mEq/L (134-144) Potassium Level 4.8mEq/L (3.5-5.2) Chloride Level 97mEq/L (97-108) Carbon Dioxide Level 20mmol/L (18-29) Blood Urea Nitrogen 25mg/dL (8-27) Creatinine 1.26mg/dL (0.76-1.27) Estimat Glomerular Filtration Rate 62mL/min (>59) Glucose Level 328mg/dL (60-99) Calcium Level 10.0mg/dL (8.5-10.1) Total Bilirubin 1.5mg/dL (0.0-1.2) Aspartate Amino Transf (AST/SGOT) 45U/L (0-50) Alanine Aminotransferase (ALT/SGPT) 25U/L (0-44) Alkaline Phosphatase 161U/L (25-160) Ammonia 239ug/dL (18-53) Total Protein 7.9g/dL (6.4-8.4) Albumin 3.4g/dL (3.4-5.0) Hold Mcguire Top Tube Received (Received) Urine Color Yellow (YELLOW) Urine Appearance Clear (CLEAR,HAZY) Urine pH 6.0 (5.0-8.0) Urine Specific Henderson 1.015 (1.003-1.035) Urine Protein Negativemg/dL (NEG,TRACE) Urine Glucose (UA) 500mg/dL (NEGATIVE) Urine Ketones Negativemg/dL (NEGATIVE) Urine Occult Blood Trace (NEGATIVE) Urine Nitrite Negative (NEGATIVE) Urine Bilirubin Negative (NEGATIVE) Urine Urobilinogen 4.0mg/dL (NORMAL) Urine Leukocyte Esterase Negative (NEGATIVE) Urine RBC 0-2/hpf (0-2) Urine WBC 0-5/hpf (0-5) Urine Epithelial Cells Few/hpf (NONE-MOD) Urine Crystals None seen (NONE SEEN) Urine Bacteria Few/hpf (NONE-FEW) Urine Hyaline Casts None/lpf (NONE) Urine Granular Casts None seen (NONE SEEN) Urine Waxy Casts None seen (NONE SEEN) Urine Red Blood Cell Casts None seen (NONE SEEN) Urine White Blood Cell Casts None seen (NONE SEEN) Urine Mucus None seen (None Seen) Urine Trichomonas None seen (NONE SEEN) Urine Yeast None (NONE SEEN) Urinalysis Comment None Urine Culture Reflexed Not indicated ECG Interpretation ECG Interpretation: Rate is 78. Sinus rhythm. No ischemia. Similar to 09/11/16 Time: 11:54 Interpreted by: ED physician Re-Eval/Medical Decision Med Decision/Clinical Course 61-year-old gentleman 2 weeks post-TIPS procedure comes in with increasing confusion. His confusion is certainly at a higher cognitive level he is easily able to converse carry on a conversation notes feeling where he is. He was seen at [facility] and I spoke with Dr. Cindy Stanton [phone] Over the last week he has been having significantly more nausea has not been able to take his lactulose is getting more confused. On initial arrival routine labs were done not significantly changed with the exception of an elevated ammonia. In discussion with the merchandising intern, recommendation was to rule out infectious sources, hydrate, every 2 hours lactulose until his ammonia is coming down and he stooling with a goal of 4 stools per day. He likely is going to continue to need IV hydration and certainly is going to need IV antibiotics for the time being. She also recommended an ultrasound of the abdomen to assess tips patency. If there does turn down worker to be enough ascites to tap she did recommend tapping this looking for additional sources of infection. Recommends continuing all medications as prescribed at discharge. Think the easiest most efficacious way to facilitate the hydration and nausea control and large doses of lactulose will be admission. If there are complications or other questions she can be contacted the phone number listed above Source of Hx: Old records Consultation #1: Call Returned at: 13:06 Note: Discussed patient case with [place], explaining that I had been told by patient's that [place] called ED earlier. [place] hepatology will call back. Consultation #2: Call Returned at: 15:02 Note: Dsiscussed patient case with [place] Hepatology who suggest that patient should be Consultation #3: Consulted With: Hospitalist Call Returned at: 16:16 Welding Machine Operator: Will see patient, Agrees with plan Note: Dr Farmer. Care and case reviewed. Counseled Regarding: Diagnosis, Lab results, Need for follow-up, When/why to return to ED Discharge & Departure Primary Impression: Hepatic encephalopathy Additional Impressions: Dehydration Nausea and vomiting Disposition: ADMITTED TO HOSPITAL Referrals: Patt Dutta MD (PCP) (Family) Ruma Attestation Portions of this note were transcribed by Donovan Ascencio. I, Dr. Orellana personally performed the history, physical exam and medical decision-making; I reviewed and confirmed the accuracy of the information in the transcribed note. Signed by: Ruma Parker, 11/09/2016,1520. copies to: Patt Dutta MD, Shawna L MD Nov 09, 2016 11:49 Donovan Ascencio Nov 09, 2016 11:54
[2016-11-09 12:01] LABS: BASOPHILS % (AUTO) 0.4 % (0-3); EOSINOPHILS % (AUTO) 4.6 % (0-5); MONOCYTES % (AUTO) 9.8 % (4-12); Mean Corpuscular Hemoglobin 29.8 pg (27.0-35.0); NEUTROPHILS % (AUTO) 72.4 % (40-74); Platelet Count 71 bil/L (150-400)
[2016-11-09 13:49] VITALS: BP 176/79; PULSE 80; RESP 12; O2SAT 98
[2016-11-09] MEDS ORDERED: Lactulose 20 Gm/30 mL 30 mL Syrup PO ONE (15:20)
[2016-11-09] MEDS ORDERED: 0.9% Sodium Chloride 1,000 ML IV ONE (15:20)
[2016-11-09] MEDS ORDERED: Ondansetron 2 mg/mL 2 mL Inj IVPUSH ONE (15:20)
[2016-11-09] MEDS ORDERED: Ondansetron 2 mg/mL 2 mL Inj IVPUSH PRN (15:20)
[2016-11-09 15:47] LABS: APPEARANCE,URINE CLEAR (CLEAR,HAZY); COLOR,URINE YELLOW (YELLOW); OCCULT BLOOD,URINE TRACE (NEGATIVE)
[2016-11-09 15:54] VITALS: BP 153/63; PULSE 72; RESP 12; O2SAT 98
[2016-11-09] MEDS ORDERED: Lactulose 20 Gm/30 mL 30 mL Syrup PO PRN (16:05)
--- NOTE | 2016-11-09 17:10 | NUR ---
ADMIT Report received from Megan Núñez RN in ED. Pt brought onto floor via gurney at 1710. Pt able to transfer to bed w/ minimal assistance. Pt oriented to floor, room, and call light. MED rec completed and accidentally entered on [employer]. Admission completed, paged to update and clarify orders. Plan on board, in room assisting with care. Pt stable, denies pain, no s/sx of distress. Mild confusion.
--- NOTE | 2016-11-09 17:14 | DRSVH ---
PROCEDURE: US ABDOMEN DOPPLER, LIMITED INDICATIONS: 61 year-old male with cirrhosis and recent TIPS procedure October 22 2016, with worsening e ncephalopathy. TECHNIQUE: Real-time scanning was performed of the liver, with image documentation. Color and pulse Doppler int errogation was also performed of the hepatic and splenic vessels. COMPARISON: [facility], US, US ABD DOPPLER, 09/13/2016, 11:00. FINDINGS: Liver: Liver is cirrhotic in appearance similar to prior examination. No discrete hepatic masses evelyn ntified. Doppler: Intrahepatic portosystemic shunt appears patent on color and pulse Doppler interrogation. T here is normal flow velocity within the TIPS catheter with maximal velocity of roughly 183 cm/s. Abner ropriate hepatofugal flow visualized within the left portal vein. Hepatic veins are patent as well a s the main portal and splenic vein. Miscellaneous: No free abdominal fluid. IMPRESSION: Transjugular intrahepatic portosystemic shunt appears patent, with normal flow velocities. Dr. Orellana given results by the telephonic nurse at 1630 hrs. 11/09/2016. Dictated by: Wero Sepulveda [facility] Interpreted: Simba Grimes MD on 11/09/2016 at 17:09 Transcribed by: HEMANTH on 11/09/2016 at 17:13 Approved by: Simba Grimes M.D. on 11/09/2016 at 18:37
[2016-11-09 17:16] VITALS: BP 181/87; PULSE 73; RESP 19; O2SAT 100
[2016-11-09] MEDS ORDERED: LACT10SO64 PO (17:32)
[2016-11-09] MEDS ORDERED: PROP10TA8 PO (17:32)
[2016-11-09 17:49] VITALS: PULSE 77
--- NOTE | 2016-11-09 18:17 | PCM.HPMED ---
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 patient was recently hospitalized in Aug at [facility] for decompensated cirrhosis, HE , KATIE, new onsest ascites which thought to be from known cirrhosis. had dx/tx paracentesis, didn't show signs of infection. EGD showed non bleeding varices. Since pt was d/heather, followed up closely at [facility] liver center. patient had TIPs procedure done 2weeks ago, had follow up visit on 4days ago. Patient was told to decrease lasix from 40 to 20mg, continued aldactone 50mg, propranolol was also decreased to 10mg bid from tid. Since then patient had less BM than normal 1-2BM/d, became very nauseous with lactulose so didn't take it much, used to take 30ml bid to have 3-4BM past week. had intermittent nausea, vomiting , decreased PO intake, also became mildly confused this morning, was concerned and brought him to the hospital. pt/ reported having sore throat and throat clearing intermittently, but pt denied sick contacts, no cough, sputu, no nasal congestion, LEES, dizziness. patient also denied abdominal pain, chest pain, SOB, ED, VS stable [id number], 78, 16, pt received 1lactulose orally had one BM, remained oriented to AAOx2, mildly drowsy. Dr.Lana Stanton Hepatology Fellow at [facility] was reached by in ED, recommended infectious w/u with abd US and q2 lactulose. Review of Systems: Pertinent positives as noted in history of present illness. All other systems were reviewed and are negative Allergies Coded Allergies: shellfish derived (Verified Allergy, Mild, SWELLING, 11/09/16) Home Medications Scheduled Esomeprazole Magnesium (Nexium) 40 Mg Capsule.dr 40 MG PO BID Furosemide (Furosemide) 40 Mg Tablet 40 MG PO DAILY Gabapentin (Gabapentin) 300 Mg Capsule 300 MG PO HS Insulin Regular, Human (HUMulin-R U100 Insulin Vial) 100 Unit/1 Ml Vial 30-40 UNITS SUBQ bid IN AM AND DINNER Lovastatin (Lovastatin) 10 Mg Tablet 10 MG PO Q48 HRS Metformin (Glucophage) 1,000 Mg Tablet 1,000 MG PO BID Multivitamin (Multi Vitamin Daily) 1 Each Tablet 1 EACH PO DAILY NPH, Human Insulin Isophane (HUMulin-N U100 Insulin Vial) 100 Unit/1 Ml Vial 30- 40 UNITS SUBQ BID IN AM AND HS Propranolol HCl (Propranolol HCl) 20 Mg Tablet 10 MG PO TID Spironolactone (Spironolactone) 50 Mg Tablet 50 MG PO DAILY Scheduled PRN Lactulose (Lactulose) 20 Gm/30 Ml Solution 20 GM PO BID PRN PRN For Bowel Movement Rifaximin (Xifaxan) 550 Mg Tablet 550 MG PO BID PRN PRN For Agitation Patient uses this with lactulose 20mg PRN for SX of HE PMH PMH Non-alcoholic cirrhosis with ascites, Diverticulitis, Coronary artery disease, Diabetes mellitus, Hyperlipidemia, Hypertension Surgical History Colon repair after a tear, Gastric lap band, Coronary bypass graft surgery, Toe amputation Reports: Cholecystectomy Reports: Carpal tunnel Family History Family history reviewed and is pertinent for : Coronary artery disease, Diabetes mellitus, Stroke Social History Hx Alcohol Use: No Hx Substance Use: No Hx Tobacco Use: No Smoking Status: Unknown if Ever Smoker Exam Vital Signs Vital Sign - Last Date Time Temp Pulse Resp B/P Pulse Ox O2 Delivery O2 Flow Rate FiO2 11/09/16 15:54 72 12 153/63 98 Room Air 11/09/16 11:13 36.2 Exam NAD, comfortably laying down on the bed no JVD, MMM, no LAD RRR, nl s1, s2 no mrg CTAB, no w,c S,ND,NT,normoactive BS+ warm, no edema, pulses 2/2 Lab and Diagnostics Result Diagram: 11/09/16 1154 11/09/16 1154 Cardiac Echo Impressions Caution: Report not yet finalized and possibly incomplete! PROCEDURE: US ABDOMEN DOPPLER, LIMITED INDICATIONS: 61 year-old male with hepatic cirrhosis and recent TIPS procedure. TECHNIQUE: Real-time scanning was performed of the abdominal and retroperitoneal organs, with image documentation. Color and pulse Doppler interrogation was also performed of the hepatic and splenic vessels, or of the lesion of interest. COMPARISON: [facility], US, US ABD DOPPLER, 09/13/2016, 11:00. [facility], MR, MR ABD W&WO CON, 10/03/2016, 7:09. FINDINGS: Liver: Liver is cirrhotic in appearance similar to prior examination. No definite discrete focal hepatic abnormality is seen. Doppler: Doppler assessment of the TIPS catheter demonstrates normal patency. There is normal flow velocity within the TIPS catheter with maximal velocity of roughly 183 cm/s. Appropriate hepatofugal flow visualized within the left portal vein. Hepatic veins are patent as well as the portal and splenic vein. Miscellaneous: No free abdominal fluid. IMPRESSION: 1. Cirrhotic appearance of the liver redemonstrated and no definite focal discrete hepatic abnormality seen. 2. No ascites present. 3. Patent TIPS catheter with appropriate flow. Dr. Orellana given results by the director student union at 1630 hrs. 11/09/2016. 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 acute, active #cirrhosis due to presumably DOBBINS, POA, decompensated with mild HE gr1 on admission, elevated ammonia likely due to failure of lactulose being not given.no ascites on US abd on admission, TIPs in good location. -will continue lactulose q2h until having target BM 3/d -continue Rifaximine 550mg bid -hold off diuretics, pt is not indicated anyway, not recommended by [facility] as well -liberal oral intake, -zofran prn for n/v -serial exam, neurochecks q4h given HE -will follow up with [facility] liver center, [place] or [phone] [facility] liver [facility] RN, or Dr.Lana Stanton Hepatology Fellow at [facility] -would not start abx given no ascites, no s/s of infection. #KATIE on CKD, POA, very mild from prior admission, likely prerenal with GI fluid loss. -monitor Cr, liberal PO fluid intake, avoid renal toxin, renally adjust dose, chronic, stable #hx of Diabetic foot ulcer s/p amputation, not active #IDDM type II : Continue with home insulin regimen. #Thrombocytopenia : Secondary to chronic liver disease and cirrhosis, stable dispo:Patient will be admitted with inpatient status with expectation of inpatient therapy for more than 2 midnights diet:regular dvt ppx:SCD FC Time spent 65 minutes Charly Farmer MD Nov 09, 2016 16:13
[2016-11-09] MEDS ORDERED: Glucose 40% Oral Gel 15 Gm Tube PO PRN (18:35)
[2016-11-09 20:26] VITALS: BP 174/83; PULSE 77; RESP 18; O2SAT 99
[2016-11-09] MEDS: Insulin LISPRO 300 Unit/3 mL Inj SUBQ SCH (22:00)
[2016-11-09] MEDS: Ondansetron 2 mg/mL 2 mL Inj IVPUSH PRN (23:09)
[2016-11-10] VITALS (8 sets, daily range): BP systolic 150–172; BP diastolic 68–80; PULSE 67–80; RESP 18; O2SAT 97–100
[2016-11-10] MEDS: Ondansetron 2 mg/mL 2 mL Inj IVPUSH PRN ×3 (03:13→16:47)
[2016-11-10 05:41] LABS: BASOPHILS % (AUTO) 0.6 % (0-3); EOSINOPHILS % (AUTO) 4.9 % (0-5); MONOCYTES % (AUTO) 13.6 % (4-12); Mean Corpuscular Hemoglobin 29.7 pg (27.0-35.0); Mean Corpuscular Volume 85.4 fL (81-100); NEUTROPHILS % (AUTO) 63.2 % (40-74); Platelet Count 60 bil/L (150-400)
[2016-11-10 06:39] LABS: Magnesium 1.8 mg/dL (1.6-2.6); Phosphorus 3.3 mg/dL (2.5-4.9)
--- NOTE | 2016-11-10 06:43 | NUR ---
BM Patient had 3 BM's. withheld lactulose per MD order. will continue to monitor. vitals stable. patient c/o nausea medicated with zofranx3. patient reports headache relieved by BP medications. will continue to monitor.
[2016-11-10] MEDS: Insulin LISPRO 300 Unit/3 mL Inj SUBQ SCH ×4 (09:27→21:59)
[2016-11-10] MEDS: Lactulose 20 Gm/30 mL 30 mL Syrup PO SCH ×3 (09:33→20:30)
--- NOTE | 2016-11-10 11:02 | PCM.PNMED ---
Subjective Date of Service Nov 10, 2016 Subjective Patient made 3 bowel movement with every 2 lactulose Still mildly confused this morning, with less flapping tremor Denied any headache or abdominal pain, but still has nausea which is controlled with Zofran Exam Vital Signs Vital Sign - Last Date Time Temp Pulse Resp B/P Pulse Ox O2 Delivery O2 Flow Rate FiO2 11/10/16 09:44 36.9 67 18 171/79 98 Room Air Intake and Output 11/09/16 11/09/16 11/10/16 Cumulative From/Thru 15:00 23:00 07:00 11/09/16 11:13 - 11/10/16 06:43 Intake Total 1000 ml 436 ml 1436 ml Balance 1000 ml 436 ml 1436 ml Intake Oral 436 ml 436 ml IV Total 1000 ml 1000 ml # Voids 2 2 Exam NAD, comfortably laying down on the bed no JVD, MMM, no LAD, mild flapping tremors on extended arms bilaterally RRR, nl s1, s2 no mrg CTAB, no w,c S,ND,NT,normoactive BS+ warm, no edema, pulses 2/2 IVs and Medications Medications Reviewed: Medications were reviewed in detail Lab and Diagnostics Result Diagram: 11/10/16 0505 11/10/16 0505 Cardiac Echo Impressions Caution: Report not yet finalized and possibly incomplete! PROCEDURE: US ABDOMEN DOPPLER, LIMITED INDICATIONS: 61 year-old male with hepatic cirrhosis and recent TIPS procedure. TECHNIQUE: Real-time scanning was performed of the abdominal and retroperitoneal organs, with image documentation. Color and pulse Doppler interrogation was also performed of the hepatic and splenic vessels, or of the lesion of interest. COMPARISON: [facility], US, US ABD DOPPLER, 09/13/2016, 11:00. [facility], MR, MR ABD W&WO CON, 10/03/2016, 7:09. FINDINGS: Liver: Liver is cirrhotic in appearance similar to prior examination. No definite discrete focal hepatic abnormality is seen. Doppler: Doppler assessment of the TIPS catheter demonstrates normal patency. There is normal flow velocity within the TIPS catheter with maximal velocity of roughly 183 cm/s. Appropriate hepatofugal flow visualized within the left portal vein. Hepatic veins are patent as well as the portal and splenic vein. Miscellaneous: No free abdominal fluid. IMPRESSION: 1. Cirrhotic appearance of the liver redemonstrated and no definite focal discrete hepatic abnormality seen. 2. No ascites present. 3. Patent TIPS catheter with appropriate flow. Dr. Orellana given results by the electronic equipment installer at 1630 hrs. 11/09/2016. 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 acute, active #cirrhosis due to presumably DOBBINS, POA, decompensated with mild HE gr1 on admission, elevated ammonia likely due to failure of lactulose being not given.no ascites on US abd on admission, TIPs in good location. -will continue lactulose q2h until having target BM 3/d -continue Rifaximine 550mg bid -hold off diuretics, pt is not indicated anyway, not recommended by [facility] as well -liberal oral intake, -zofran prn for n/v -serial exam, neurochecks q4h given HE -will follow up with [facility] liver center, [place] or [phone] [facility] liver center RN, or Dr.Lana Stanton Hepatology Fellow at [facility] -would not start abx given no ascites, no s/s of infection. #KATIE on CKD, POA, very mild from prior admission, likely prerenal with GI fluid loss. -monitor Cr, liberal PO fluid intake, avoid renal toxin, renally adjust dose, chronic, stable #hx of Diabetic foot ulcer s/p amputation, not active #IDDM type II : Continue with home insulin regimen. #Thrombocytopenia : Secondary to chronic liver disease and cirrhosis, stable dispo:likely in 1-2more days until HE improves, no GI sx ensured diet:regular dvt ppx:SCD FC VTE Mechanical Devices: Intermittant Pneumatic CD Time spent 35min Charly Farmer MD Nov 10, 2016 11:02
--- NOTE | 2016-11-10 12:12 | NUR ---
Social Work: Screening Data: Pt is a 61 y/o male admitted for hepatic encephalopathy. Pt's PCP is Dr Dutta, pt's insurance is [employer] plan. EMR reviewed, readmit score is 3. Pt discussed in rounds. Likely no d/c planning needs anticipated. [employer] will continue to follow if needs arise. Assessment: Pt who is independent at baseline. Plan: Pt will d/c home via POV when medically stable. Likely no d/c planning needs anticipated. [employer] will continue to follow if needs arise. ANAHI Rodriguez
--- NOTE | 2016-11-10 17:48 | NUR ---
Mentation/Lactulose/Nausea Pt reported to have 3 BM yesterday. MD aware, change of Lactulose order to TID. Pt had 2 BM so far during shift, marked on board to record. Post lactulose administration, pt reports heavy nausea with no emesis or dry heaving. Administered 4mg IVPush Zofran for morning nausea. Pt reports nausea subsided partially. Late afternoon nausea, pt was given 8mg IVPush Zofran. Pt reports nausea is almost completely gone. Will report to NOC shift to continue with care.
--- NOTE | 2016-11-10 20:56 | NUR ---
lactulose per patient report, has had 3 large stools today. prefers not to have evening lactulose. per md note: goal is 3 stools daily. evening lactulose held.
[2016-11-11 01:39] VITALS: BP 150/77; PULSE 74; RESP 18; O2SAT 97
--- NOTE | 2016-11-11 02:02 | NUR ---
blood sugar blood sugar at 0200 405. blood sugar at 2200 was 400. given humalog 4 units per protocol. patient asymptomatic. states "i cant sleep." notified hospitalist via cookpaging. Addendum: 11/11/16 at 0206 by BRENDAN ARMENTA RN dr Russo returned page. ordered high dose humalog sliding scale. ordered sliding scale bedtime dose now. care ongoing. Addendum: 11/11/16 at 025 by BRENDAN ARMENTA RN spoke to patient regarding home insulin routine. patient states "i take as much as 40 units " per sliding scale. discussed blood sugar and insulin. give ice water.
[2016-11-11] MEDS ORDERED: Glucose 40% Oral Gel 15 Gm Tube PO PRN (02:20)
[2016-11-11] MEDS: Insulin LISPRO 300 Unit/3 mL Inj SUBQ SCH ×2 (02:44→08:06)
[2016-11-11 05:23] LABS: BASOPHILS % (AUTO) 0.6 % (0-3); EOSINOPHILS % (AUTO) 5.1 % (0-5); MONOCYTES % (AUTO) 12.2 % (4-12); Mean Corpuscular Hemoglobin 29.6 pg (27.0-35.0); NEUTROPHILS % (AUTO) 67.2 % (40-74); Platelet Count 66 bil/L (150-400)
[2016-11-11 05:39] VITALS: PULSE 77
[2016-11-11 05:42] VITALS: BP 174/74; PULSE 68; RESP 18; O2SAT 98
[2016-11-11 05:48] LABS: Magnesium 1.6 mg/dL (1.6-2.6); Phosphorus 4.2 mg/dL (2.5-4.9)
[2016-11-11] MEDS: Lactulose 20 Gm/30 mL 30 mL Syrup PO SCH (08:05)
[2016-11-11] MEDS: Ondansetron 2 mg/mL 2 mL Inj IVPUSH PRN (08:34)
[2016-11-11 09:49] VITALS: BP 145/75; PULSE 72; RESP 18; O2SAT 97
[2016-11-11] MEDS ORDERED: ONDA4TAB9 PO (10:07)
--- NOTE | 2016-11-11 10:10 | PCM.DIMED ---
Discharge Instructions Date of Service Nov 11, 2016 Dates of Hospitalization Nov 09, 2016 at 16:32 Discharge Diagnosis Discharge Diagnosis Grade1-2 hepatic encephalopathy Medication Instructions Please note that you can titrate your Lactulose to target 3 bowel movement a day and take Rifaximine twice a day You can take zofran every four hours as needed for you nausea. Diet No restrictions Activity No restrictions Patient Instructions You were hospitalized with confusion, likely due to your baseline liver cirrhosis, ammonia build up. Follow-up plan Please follow up with her primary doctor and [facility] as scheduled Follow-up Provider: Patt Dutta MD Follow-up with PCP in: 2 weeks Charly Farmer MD Nov 11, 2016 10:10
--- NOTE | 2016-11-11 11:13 | NUR ---
Discharge Patient given discharge orders. Patient given medication list with instructions verbally and written when next dose due. Patient IV removed fully intact and asymptomatic. Patient given follow up instructions. Patient given informational packets. Patient assisted to main entrance.
--- NOTE | 2016-11-12 23:01 | PCM.DC.MED ---
Discharge Summary Date of Service Nov 11, 2016 Dates of Hospitalization Date of Hospital Admission Nov 09, 2016 at 16:32 Date of Discharge: Nov 11, 2016 Providers: Admitting Physician: Charly Noel MD Primary Care Physician: Patt Dutta MD Attending Physician: Charly Noel MD Diagnosis at Time of Discharge Diagnosis at Time of Discharge acute problems cirrhosis due to presumably DOBBINS s/p recent TIPS Grade1-2 hepatic encephalopathy KATIE on CKD, prerenal with GI fluid loss chronic problems #hx of Diabetic foot ulcer s/p amputation #IDDM type II #Thrombocytopenia : Secondary to chronic liver disease and cirrhosis Procedures Other Diagnostics PROCEDURE: US ABDOMEN DOPPLER, LIMITED INDICATIONS: 61 year-old male with cirrhosis and recent TIPS procedure October 22 2016, with worsening encephalopathy. TECHNIQUE: Real-time scanning was performed of the liver, with image documentation. Color and pulse Doppler interrogation was also performed of the hepatic and splenic vessels. COMPARISON: [facility], US, US ABD DOPPLER, 09/13/2016, 11:00. FINDINGS: Liver: Liver is cirrhotic in appearance similar to prior examination. No discrete hepatic masses identified. Doppler: Intrahepatic portosystemic shunt appears patent on color and pulse Doppler interrogation. There is normal flow velocity within the TIPS catheter with maximal velocity of roughly 183 cm/s. Appropriate hepatofugal flow visualized within the left portal vein. Hepatic veins are patent as well as the main portal and splenic vein. Miscellaneous: No free abdominal fluid. IMPRESSION: Transjugular intrahepatic portosystemic shunt appears patent, with normal flow velocities. Dr. Orellana given results by the bone drier operator at 1630 hrs. 11/09/2016. Dictated by: Wero Sepulveda [facility] Interpreted: Simba Grimes MD on 11/09/2016 at 17:09 Transcribed by: HEMANTH on 11/09/2016 at 17:13 Approved by: Simba Grimes M.D. 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 patient was recently hospitalized in Aug at [facility] for decompensated cirrhosis, HE , KATIE, new onsest ascites which thought to be from known cirrhosis. had dx/tx paracentesis, didn't show signs of infection. EGD showed non bleeding varices. Since pt was d/heather, followed up closely at [facility]. patient had TIPs procedure done 2weeks ago, had follow up visit on 4days ago. Patient was told to decrease lasix from 40 to 20mg, continued aldactone 50mg, propranolol was also decreased to 10mg bid from tid. Since then patient had less BM than normal 1-2BM/d, became very nauseous with lactulose so didn't take it much, used to take 30ml bid to have 3-4BM past week. had intermittent nausea, vomiting , decreased PO intake, also became mildly confused this morning, was concerned and brought him to the hospital. pt/ reported having sore throat and throat clearing intermittently, but pt denied sick contacts, no cough, sputu, no nasal congestion, LEES, dizziness. patient also denied abdominal pain, chest pain, SOB, ED, VS stable [id number], 78, 16, pt received 1lactulose orally had one BM, remained oriented to AAOx2, mildly drowsy. Dr.Lana Stanton Hepatology Fellow at [facility] was reached by in ED, recommended infectious w/u with abd US and q2 lactulose. 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 acute problems #cirrhosis due to presumably DOBBINS, patient was admitted with mild HE gr1 on admission. it happened as pt couldn't tolerate lactulose which turned into vicious cycle that he was confused and also limit compliance of lactulose. Patient was initially consulted by Dr.Lana Stanton Hepatology Fellow at [facility] in ED. lactulose q2 was tried until pt had target BM>3. patient returned to baseline mental status. Given recent TIPS procedure, no signs of infection, abd US-no ascites, patient was discontinued on BB, diuretics(per [facility]). Patient was able to tolerate lactulose in vitamine water, which likely be the plan upon d/c and continuing Rifaximine bid. pt will follow up with [facility] sleepy [facility], contact: Cayla [phone] [facility] RN. #KATIE on CKD, POA, very mild from prior admission, likely prerenal with GI fluid loss. resolved upon d/c chronic problems #hx of Diabetic foot ulcer s/p amputation, not active #IDDM type II : Continue with home insulin regimen. #Thrombocytopenia : Secondary to chronic liver disease and cirrhosis, stable Exam Vital Signs (Last) Date Time Temp Pulse Resp B/P Pulse Ox O2 Delivery O2 Flow Rate FiO2 11/11/16 09:49 36.7 72 18 145/75 97 Room Air Exam NAD, comfortably laying down on the bed no JVD, MMM, no LAD, no flapping tremor RRR, nl s1, s2 no mrg CTAB, no w,c S,ND,NT,normoactive BS+ warm, no edema, pulses 2/2 Test 11/09/16 11:54 11/09/16 15:21 11/10/16 05:05 11/11/16 04:55 Ammonia 239ug/dL (18-53) Hold Mcguire Top Tube Received (Received) Urine Color Yellow (YELLOW) Urine Appearance Clear (CLEAR,HAZY) Urine pH 6.0 (5.0-8.0) Urine Specific [place] 1.015 (1.003-1.035) Urine Protein Negativemg/dL (NEG,TRACE) Urine Glucose (UA) 500mg/dL (NEGATIVE) Urine Ketones Negativemg/dL (NEGATIVE) Urine Occult Blood Trace (NEGATIVE) Urine Nitrite Negative (NEGATIVE) Urine Bilirubin Negative (NEGATIVE) Urine Urobilinogen 4.0mg/dL (NORMAL) Urine Leukocyte Esterase Negative (NEGATIVE) Urine RBC 0-2/hpf (0-2) Urine WBC 0-5/hpf (0-5) Urine Epithelial Cells Few/hpf (NONE-MOD) Urine Crystals None seen (NONE SEEN) Urine Bacteria Few/hpf (NONE-FEW) Urine Hyaline Casts None/lpf (NONE) Urine Granular Casts None seen (NONE SEEN) Urine Waxy Casts None seen (NONE SEEN) Urine Red Blood Cell Casts None seen (NONE SEEN) Urine White Blood Cell Casts None seen (NONE SEEN) Urine Mucus None seen (None Seen) Urine Trichomonas None seen (NONE SEEN) Urine Yeast None (NONE SEEN) Urinalysis Comment None Urine Culture Reflexed Not indicated Hemoglobin A1c 6.9% (4.8-5.6) Procalcitonin 0.12ng/mL (0.00-0.08) White Blood Count 6.3th/mm3 (3.8-10.1) Red Blood Count 3.82mil/mm3 (4.40-5.80) Hemoglobin 11.3g/dL (13.8-17.2) Hematocrit 32.1% (41.0-50.0) Mean Corpuscular Volume 84.0fL (81-100) Mean Corpuscular Hemoglobin 29.6pg (27.0-35.0) Mean Corpuscular Hemoglobin Concent 35.2% (32.0-37.0) Red Cell Distribution Width 17.3% (12.3-15.4) Platelet Count 66bil/L (150-400) Neutrophils (%) (Auto) 67.2% (40-74) Lymphocytes (%) (Auto) 14.7% (14-46) Monocytes (%) (Auto) 12.2% (4-12) Eosinophils (%) (Auto) 5.1% (0-5) Basophils (%) (Auto) 0.6% (0-3) Sodium Level 134mEq/L (134-144) Potassium Level 4.3mEq/L (3.5-5.2) Chloride Level 101mEq/L (97-108) Carbon Dioxide Level 19mmol/L (18-29) Blood Urea Nitrogen 18mg/dL (8-27) Creatinine 1.31mg/dL (0.76-1.27) Estimat Glomerular Filtration Rate 59mL/min (>59) Glucose Level 377mg/dL (60-99) Calcium Level 9.5mg/dL (8.5-10.1) Phosphorus Level 4.2mg/dL (2.5-4.9) Magnesium Level 1.6mg/dL (1.6-2.6) Total Bilirubin 1.3mg/dL (0.0-1.2) Aspartate Amino Transf (AST/SGOT) 77U/L (0-50) Alanine Aminotransferase (ALT/SGPT) 41U/L (0-44) Alkaline Phosphatase 212U/L (25-160) Total Protein 7.2g/dL (6.4-8.4) Albumin 3.0g/dL (3.4-5.0) Discharge Medications Discharge Medications Esomeprazole Magnesium (Nexium) 40 Mg Capsule.dr 40 MG PO BID (Reported) Furosemide (Furosemide) 40 Mg Tablet 20 MG PO DAILY (Reported) Gabapentin (Gabapentin) 300 Mg Capsule 300 MG PO HS (Reported) Insulin Regular, Human (HUMulin-R U100 Insulin Vial) 100 Unit/1 Ml Vial 30-40 UNITS SUBQ bid IN AM AND DINNER (Reported) Lactulose (Constulose) 10 Gm/15 Ml Solution 20-30 GM PO BID (Reported) can increase to qid to increase bm's Lovastatin (Lovastatin) 10 Mg Tablet 10 MG PO Q48 HRS (Reported) Metformin (Glucophage) 1,000 Mg Tablet 1,000 MG PO BIDWM (Reported) NPH, Human Insulin Isophane (HUMulin-N U100 Insulin Vial) 100 Unit/1 Ml Vial 30- 40 UNITS SUBQ BID IN AM AND HS (Reported) As needed Ondansetron ODT (Zofran ODT) 4 Mg Tablet 4 MG PO Q4H PRN PRN For Nausea Prescribed by: CHARLY NOEL MD Rifaximin (Xifaxan) 550 Mg Tablet 550 MG PO BID PRN PRN For Agitation (Reported ) Patient uses this with lactulose 20mg PRN for SX of HE Additional med instructions Please note that you can titrate your Lactulose to target 3 bowel movement a day and take Rifaximine twice a day You can take zofran every four hours as needed for you nausea. Followup Plan Disposition: home Follow-up plan Please follow up with her primary doctor and [facility] sleepy [facility] as scheduled Discharge Diet: No restrictions Discharge Activity: No restrictions Patient Instructions You were hospitalized with confusion, likely due to your baseline liver cirrhosis, ammonia build up. Follow-up Provider: Patt Dutta MD Follow-up with PCP in: 2 weeks Time spent 65min Charly Noel MD Nov 12, 2016 23:01
== END 2016-11-11 11:21 | disposition home or self-care (01) | DRG 443 ==
LOC: SED 11:11 → MPC 16:32
PROVIDERS: ADMIT Internal Medicine; ATTEND Internal Medicine
DX: K75.81 Nonalcoholic steatohepatitis (NASH) (principal); K72.90 Hepatic failure, unspecified without coma; E86.0 Dehydration; I10 Essential (primary) hypertension; E11.9 Type 2 diabetes mellitus without complications; I25.10 Atherosclerotic heart disease of native coronary artery without angina pectoris; E78.5 Hyperlipidemia, unspecified; Z95.1 Presence of aortocoronary bypass graft; Z98.890 Other specified postprocedural states; Z79.4 Long term (current) use of insulin; I25.2 Old myocardial infarction

== ENCOUNTER 2016-11-30 10:00 | Inpatient (IN) | payer OTHER ==
[~2016-11-30] VITALS: Ht 177.8 cm; Wt 99.7 kg
[~2016-11-30 10:00] MED LIST changes: -LACT10SO60 PO; +LACT10SO64 PO; -MULT-1018 PO; +ONDA4TAB9 PO; -PROP20TA5 PO; -SPIR50TA2 PO
[2016-11-30 10:04] VITALS: BP 159/82; PULSE 76; RESP 18; O2SAT 100
--- NOTE | 2016-11-30 10:12 | ED.REPORT ---
HPI-General Illness Date of Service November 30, 2016 ED Provider: Savanna Martinez MD Patient is a 61 year old male with a history of a TIPS procedure on 10/29/16, hepatic encephalopathy, liver cirrhosis,aortic TAVR, [place], diabetes, quadruple bypass and CABG who presents to the ED complaining of increasing weakness onset two days ago. Associated symptoms include confusion, nausea, lethargy and being unbalanced. Per the patient's , the patient has had normal bowel movements and weight gain. Nursing Notes Stated Complaint: HEPATIC ENCEPHALOPATHY BLOOD WORK NEEDED Chief Complaint: General Complaint Nursing Notes Reviewed: Yes Allergies: Coded Allergies: shellfish derived (Verified Allergy, Mild, SWELLING, 11/30/16) Scheduled Esomeprazole Magnesium (Nexium) 40 Mg Capsule.dr 40 MG PO BID Esomeprazole Magnesium (Esomeprazole Magnesium) 40 Mg Capsule.dr 40 MG PO BID Furosemide (Furosemide) 40 Mg Tablet 20 MG PO DAILY Gabapentin (Gabapentin) 300 Mg Capsule 300 MG PO HS Insulin Regular, Human (HUMulin-R U100 Insulin Vial) 100 Unit/1 Ml Vial 40 UNITS SUBQ bid IN AM AND DINNER Lactulose (Generlac) 10 Gm/15 Ml Solution 30-45 ML PO 2-3X Daily Lorazepam (Lorazepam) 0.5 Mg Tablet 0.5 MG PO BID Lovastatin (Lovastatin) 10 Mg Tablet 10 MG PO Q48 HRS Metformin ER (Fortamet) 1,000 Mg Tab.er.24 1,000 MG PO BID Metoprolol Succinate ER (Toprol XL) 100 Mg Tablet 100 MG PO BID NPH, Human Insulin Isophane (HUMulin-N U100 Insulin Vial) 100 Unit/1 Ml Vial 40 UNITS SUBQ BID IN AM AND HS Scheduled PRN Ondansetron ODT (Zofran ODT) 4 Mg Tablet 4 MG PO Q4H PRN PRN For Nausea Rifaximin (Xifaxan) 550 Mg Tablet 550 MG PO BID PRN PRN For Agitation Patient uses this with lactulose 20mg PRN for SX of HE General Time Seen by MD: 10:11 Chief Complaint Weakness Hx Obtained From: Patient Arrived By: Walk-in Sudden in Onset?: Yes Onset Occurred: Yesterday Symptom Duration: Since onset Associated with: Reports: Nausea, Denies: Abdominal pain, Chest pain, Shortness of breath Recent Healthcare: Recent doctor visit, Recent hospitalization Past Medical History Past Medical History Notes: 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 Greenfield Past Medical History Non-alcoholic cirrhosis with ascites [place] Diverticulitis ulcer Reports: Coronary artery disease, Diabetes mellitus, Hyperlipidemia, Hypertension Past Surgical History Colon repair after a tear Gastric lap band Coronary bypass graft surgery Toe amputation TIPS procedure, trhough jugular 10/29/16 CABG, TAVR Reports: Cholecystectomy Reports: Carpal tunnel Family History Reports: Coronary artery disease, Diabetes mellitus, Stroke Smoking History Unknown if Ever Smoker Social History Alcohol Use: Denies alcohol use Drug Use: Denies drug use Other Social History: Good social support, Lives alone, Local resident 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 Ambulatory Status Independent Review of Systems weight gain normal bowel movements unbalanced Full Review of Systems Constitutional: Reports: Lethargy Respiratory: Denies: Non-productive cough, Shortness of breath Cardiovascular: Denies: Chest pain GI: Reports: Nausea, Denies: Abdominal pain Neurologic: Reports: Weakness, Denies: Headache Psychiatric: Reports: Confusion Complete sys rev & neg: except as marked. Physical Exam Vital Signs Vital Signs Date Time Temp Pulse Resp B/P Pulse Ox O2 Delivery O2 Flow Rate FiO2 11/30/16 10:04 36.6 76 18 159/82 100 Room Air Initial VS: Reviewed, Vital signs abnormal General/Constitutional: Awake, Alert, No acute distress Head / Eyes: Atraumatic, Normocephalic, PERRL, EOMI anicteric Respiratory / Chest: Atraumatic, Breath sounds NL, Breath sounds = bilat, No respiratory distress Cardiovascular: Heart rate NL, Regular rhythm, Heart sounds NL Abdomen: No guarding, No rebound, BS normoactive firmness from foreign body in the mid abdomen Upper Extremities Upper Extremity / MS: Atraumatic, Full range of motion Lower Extremity / Pelvis / MS: Atraumatic, Full range of motion trace edema to lower extremities Skin: Atraumatic, Color NL, No rash, Warm, Dry Neurologic: Speech NL, No motor deficits, No sensory deficits oriented x4, slight confusion upon further questioning Psychiatric: Affect NL, Mood NL Interpretation & Diagnostics Lab Results Interpretation Result Diagram: 11/30/16 1028 11/30/16 1020 Test 11/30/16 10:20 11/30/16 10:28 11/30/16 10:42 Sodium Level 137mEq/L (134-144) Potassium Level 4.4mEq/L (3.5-5.2) Chloride Level 98mEq/L (97-108) Carbon Dioxide Level 20mmol/L (18-29) Blood Urea Nitrogen 26mg/dL (8-27) Creatinine 1.13mg/dL (0.76-1.27) Estimat Glomerular Filtration Rate 70mL/min (>59) Glucose Level 168mg/dL (60-99) Calcium Level 9.9mg/dL (8.5-10.1) Magnesium Level 1.8mg/dL (1.6-2.6) Total Bilirubin 1.2mg/dL (0.0-1.2) Aspartate Amino Transf (AST/SGOT) 64U/L (0-50) Alanine Aminotransferase (ALT/SGPT) 43U/L (0-44) Alkaline Phosphatase 181U/L (25-160) Total Protein 7.6g/dL (6.4-8.4) Albumin 3.0g/dL (3.4-5.0) Lipase 34U/L (13-60) White Blood Count 6.8th/mm3 (3.8-10.1) Red Blood Count 4.18mil/mm3 (4.40-5.80) Hemoglobin 12.8g/dL (13.8-17.2) Hematocrit 35.9% (41.0-50.0) Mean Corpuscular Volume 85.9fL (81-100) Mean Corpuscular Hemoglobin 30.6pg (27.0-35.0) Mean Corpuscular Hemoglobin Concent 35.7% (32.0-37.0) Red Cell Distribution Width 16.5% (12.3-15.4) Platelet Count 86bil/L (150-400) Neutrophils (%) (Auto) 62.6% (40-74) Lymphocytes (%) (Auto) 16.9% (14-46) Monocytes (%) (Auto) 13.0% (4-12) Eosinophils (%) (Auto) 6.8% (0-5) Basophils (%) (Auto) 0.6% (0-3) Prothrombin Time 13.2sec (8.1-12.5) Prothromb Time International Ratio 1.23ratio Ammonia 258ug/dL (18-53) Hold Mcguire Top Tube Received (Received) Urine Color Yellow (YELLOW) Urine Appearance Hazy (CLEAR,HAZY) Urine pH 5.5 (5.0-8.0) Urine Specific [place] 1.015 (1.003-1.035) Urine Protein Negativemg/dL (NEG,TRACE) Urine Glucose (UA) Negativemg/dL (NEGATIVE) Urine Ketones Negativemg/dL (NEGATIVE) Urine Occult Blood Negative (NEGATIVE) Urine Nitrite Negative (NEGATIVE) Urine Bilirubin Negative (NEGATIVE) Urine Urobilinogen Normalmg/dL (NORMAL) Urine Leukocyte Esterase Negative (NEGATIVE) Urine RBC 3-10/hpf (0-2) Urine WBC 0-5/hpf (0-5) Urine Epithelial Cells Occasional/hpf (NONE-MOD) Urine Crystals None seen (NONE SEEN) Urine Bacteria None/hpf (NONE-FEW) Urine Hyaline Casts None/lpf (NONE) Urine Granular Casts None seen (NONE SEEN) Urine Waxy Casts None seen (NONE SEEN) Urine Red Blood Cell Casts None seen (NONE SEEN) Urine White Blood Cell Casts None seen (NONE SEEN) Urine Mucus Present (None Seen) Urine Trichomonas None seen (NONE SEEN) Urine Yeast None (NONE SEEN) Urinalysis Comment None Urine Culture Reflexed Not indicated Re-Eval/Medical Decision Med Decision/Clinical Course The patient presents confused which is consistent with his elevated ammonia. According to his he has been taking both of his medications. He will need to be admitted and see if his medications can be further optimized. Time of Eval: 11:40 Re-Evaluation/Progress Note: Discussed plan for admit. The patient understands and agrees to the plan for admit. All questions were addressed. Consultation : Referral / Consult Name: Dayday Valencia MD Consulted With: Hospitalist Call Returned at: 12:33 Cutting Machine Operator: Agrees with eval, Agrees with plan, Accepts admit Counseled Regarding: Diagnosis, Lab results, Need for admission Discharge & Departure Primary Impression: Hepatic encephalopathy Disposition: ADMITTED TO HOSPITAL Discharge Condition All VS Reviewed: Yes Condition: Stable Referrals: Patt Dutta MD (PCP) (Family) Scribe Attestation Portions of this note were transcribed by Naomy Chandra. I, Dr. Martinez personally performed the history, physical exam and medical decision-making; I reviewed and confirmed the accuracy of the information in the transcribed note. Signed by: Ruma Dial, 11/30/16 and 1233 copies to: Patt Dutta MD, Jena M MD November 30, 2016 10:11 Ml Chandra November 30, 2016 10:17
[2016-11-30] MEDS: Ondansetron 2 mg/mL 2 mL Inj IVPUSH PRN (10:32)
[2016-11-30 10:39] LABS: BASOPHILS % (AUTO) 0.6 % (0-3); EOSINOPHILS % (AUTO) 6.8 % (0-5); Mean Corpuscular Hemoglobin 30.6 pg (27.0-35.0); Mean Corpuscular Volume 85.9 fL (81-100); NEUTROPHILS % (AUTO) 62.6 % (40-74); Platelet Count 86 bil/L (150-400)
[2016-11-30 10:50] LABS: INR 1.23 ratio
[2016-11-30 10:59] LABS: APPEARANCE,URINE HAZY (CLEAR,HAZY); COLOR,URINE YELLOW (YELLOW); PH,URINE 5.5 (5.0-8.0)
[2016-11-30 11:00] LABS: OCCULT BLOOD,URINE NEGATIVE (NEGATIVE); UROBILINOGEN,URINE NORMAL (NORMAL)
[2016-11-30 11:00] LABS: Magnesium 1.8 mg/dL (1.6-2.6)
[2016-11-30] MEDS ORDERED: TOP100 PO (12:32)
[2016-11-30] MEDS ORDERED: METF-413 PO (12:32)
[2016-11-30] MEDS ORDERED: LACT10SO PO (12:32)
[2016-11-30] MEDS ORDERED: ESOM40CA53 PO (12:32)
[2016-11-30] MEDS ORDERED: LORA0.5T PO (12:34)
[2016-11-30 13:44] VITALS: BP 162/73; PULSE 76; RESP 18; O2SAT 98
--- NOTE | 2016-11-30 15:56 | NUR ---
Patient arrived to [facility]: Patient arrived to [facility] at 1320 from the ER. Patient was oriented to his call light caregivers and room . Patient stated that he is not having pain or nausea at this time. Hospitalist came to consult with patient at bedside and input orders for patients medications and tests. Patients is at bedside.
[2016-11-30] MEDS ORDERED: Ondansetron 2 mg/mL 2 mL Inj IVPUSH PRN (16:05)
[2016-11-30] MEDS ORDERED: Alum-Mag Hydrox-Simeth 30 mL Suspension PO PRN (16:05)
[2016-11-30] MEDS ORDERED: Polyethylene Glycol (PEG) 17 Gm Powder PO PRN (16:05)
[2016-11-30] MEDS: Insulin Human REGular (HUMulin-R) 100 Unit/mL 10 mL SUBQ SCH (16:30)
[2016-11-30] MEDS: Lactulose 20 Gm/30 mL 30 mL Syrup PO SCH ×3 (16:30→23:15)
[2016-11-30 16:35] VITALS: PULSE 74
--- NOTE | 2016-11-30 16:59 | HP ---
[address] [address] HISTORY AND PHYSICAL PATIENT: SASCHA BARBER : 1955 MR#: [id number] ADMIT: 11/30/2016 JOB ID: [id number] PRIMARY CARE PROVIDER: Dr. Dutta. TANNERY GUMMER: Dr. Zurita, [facility]. The patient admitted from ED, observational status, Green Team. CHIEF COMPLAINT: Confusion. HISTORY OF PRESENT ILLNESS: This is a 61-year-old, white male with known multiple episodes of hepatic encephalopathy. He had a TIPS procedure done I think in October of this year. He has been doing well. He has had no evidence of ascites. He has gained a little weight in the last four days, become a bit more confused and finally comes into the ED and does have an ammonia level of 258. Patient has been using the lactose 30 twice a day to three times a day and has been on the rifaximin. He has not been sick. There has been no fevers. There has been no chills. No abdominal pain. A little bit of weight gain. No cough, productive sputum, chest pain, nausea, vomiting, or diarrhea. REVIEW OF SYSTEMS: A complete review of systems obtained. All pertinent positive in HPI above. Rest of review of systems are negative. PAST MEDICAL HISTORY: 1. Nonalcoholic cirrhosis with ascites. Status post TIPS. 2. Diverticulosis. 3. Coronary artery disease. 4. Type 2 diabetes, insulin using. 5. Hyperlipidemia. 6. Hypertension. 7. Gastric lap band. 8. CABG. 9. Cholecystectomy. MEDICINES: 1. Rifaximin 550 b.i.d. 2. Lactulose 30-45 two to three times a day. 3. Lovastatin 10 daily. 4. Toprol-XL 100 b.i.d. 5. Gabapentin 300 daily. 6. Lorazepam 0.5 b.i.d. 7. Nexium 40 b.i.d. 8. Lasix 20 daily. 9. Metformin 1000 b.i.d. 10. NPH 40 b.i.d. 11. Humulin R 40 b.i.d. a.c. ALLERGIES: SHELLFISH. SOCIAL HISTORY: Lives with his in their home. Then there is no alcohol or tobacco use. FAMILY HISTORY: Coronary artery disease, diabetes and stroke. PHYSICAL EXAMINATION: Afebrile, blood pressure 160/70, O2 sats 98% on room. Skin is warm and dry. Eyes: PERRLA. EOMs intact. Mouth shows adequate hydration. Cardiac: Regular. A soft systolic murmur. Lungs are clear. Abdomen does not appear to have ascites, nontender. Extremities: Show trace edema. Cranial nerves 2-12 intact. No gross motor or sensory defects noted. The patient is a little bit confused but is doing pretty well and answers questions appropriately. DIAGNOSES: 1. Hepatic encephalopathy, present on admission. Active. Will increase the lactulose to 30 q.4. Get an ammonia level in the morning. Will also obtain an abdominal ultrasound looking for evidence of ascites. If he has ascites, that should probably be tapped. 2. Type 2 diabetes, insulin using, present on admission. Stable. Will continue with patient's NPH, normal dose, but cut his R to 20 b.i.d. Get an A1c and follow his blood sugars. 3. Coronary artery disease. Continue patient's Toprol, lovastatin. CODE STATUS: FULL CODE. Code sheet filled out.
[2016-11-30] MEDS: Pantoprazole 40 mg ER24 Tablet PO SCH (20:48)
[2016-11-30] MEDS: metFORMIN ER 500 mg ER24 Tablet PO SCH (20:48)
[2016-11-30] MEDS: MeTOProlol XL 50 mg ER24 Tablet PO SCH (20:48)
[2016-11-30] MEDS: LORazepam 0.5 mg Tablet PO SCH (20:52)
[2016-11-30] MEDS: Insulin Human NPH 100 Unit/mL Syringe SUBQ SCH (20:52)
[2016-11-30 20:59] VITALS: BP 166/77; PULSE 74; RESP 18; O2SAT 98
[2016-12-01 00:04] VITALS: PULSE 78
--- NOTE | 2016-12-01 01:13 | NUR ---
Nausea Pt reported some nausea around 2330. Pt given Zofran ODT 4 mg. Pt instructed to let tablet dissolve on the top of tongue. Call light placed on bed next to pt with bed in low position. Instructed pt to use call light if he needed anything else. Pt reassessed at 0030; he was resting comfortably in bed with chest rises and falls noted. Addendum: 12/01/16 at 0622 by RIKKI RAYA Pt experiencing more nausea when assessed at 0600. states that the PO zofran isn't effective. Pt given IV 4 mg/ 2ml of Zofran. Bed in low position, call light within reach. Pt instructed to use it. Will continue to assess n/v.
[2016-12-01 04:04] VITALS: BP 150/75; PULSE 71; RESP 18; O2SAT 98
[2016-12-01] MEDS: Lactulose 20 Gm/30 mL 30 mL Syrup PO SCH ×3 (06:13→12:03)
[2016-12-01] MEDS: Ondansetron 2 mg/mL 2 mL Inj IVPUSH PRN ×4 (06:13→11:39)
[2016-12-01] MEDS: Pantoprazole 40 mg ER24 Tablet PO SCH ×2 (06:57→20:24)
[2016-12-01] MEDS: Insulin Human REGular (HUMulin-R) 100 Unit/mL 10 mL SUBQ SCH ×2 (07:54→16:42)
[2016-12-01] MEDS: Insulin Human NPH 100 Unit/mL Syringe SUBQ SCH ×2 (07:56→16:43)
[2016-12-01] MEDS: metFORMIN ER 500 mg ER24 Tablet PO SCH (07:58)
[2016-12-01] MEDS: MeTOProlol XL 50 mg ER24 Tablet PO SCH ×2 (07:59→20:22)
[2016-12-01] MEDS: LORazepam 0.5 mg Tablet PO SCH ×2 (08:00→20:21)
[2016-12-01 10:39] VITALS: BP 156/81; PULSE 87; O2SAT 98
[2016-12-01 11:25] VITALS: PULSE 89
--- NOTE | 2016-12-01 12:34 | DRSVH ---
PROCEDURE: US ABDOMEN INDICATIONS: discomfort TECHNIQUE: Real-time scanning was performed of the abdominal and retroperitoneal organs, with image documentatio n. COMPARISON: [facility], US, US ABDOMEN, 10/06/2015, 7:58. FINDINGS: Liver length: 13.95 cm Gallbladder Wall Thickness: Absent CHD: 1.70 mm CBD: 4.30 mm Spleen length: 13.84 cm Right kidney length: 11.46 cm Left kidney length: 11.55 cm Aorta(Proximal): 2.14 cm Aorta(Mid): 2.09 cm Aorta(Distal): 2.00 cm RCIA: 1.25 cm LCIA: 1.14 cm Liver: Liver is coarsely echogenic. No focal hepatic lesion. Gallbladder: Surgically absent Biliary ducts: Intrahepatic bile ducts are non-dilated. Extrahepatic bile duct caliber is normal. Normal is 6-7 mm or less in diameter, or 10 mm or less post-cholecystectomy. Pancreas: Visualized portions of the pancreas are sonographically normal. Spleen: Spleen is normal in size and homogeneous in echotexture. Kidneys: Kidneys are normal in size and echotexture. No hydronephrosis or nephrolithiasis. No danielle d masses. There is a right renal cyst measuring 1.6 x 1.6 x 1.6 cm Aorta: Visualized aorta is normal in caliber at less than 3 cm. Iliacs: Proximal common iliac arteries are normal in caliber at less than 2.5 cm. IVC: Intrahepatic inferior vena cava is patent. Miscellaneous: No free abdominal fluid. IMPRESSION: Echogenic liver suggesting diffuse hepatocellular disease/fatty infiltration. Please correlate clinic ally and with LFTs. Status post cholecystectomy. Right renal cyst. Dictated by: Catracho Downey M.D. on 12/01/2016 at 12:31 Approved by: Catracho Downey M.D. on 12/01/2016 at 12:32
[2016-12-01] MEDS ORDERED: 0.9% Sodium Chloride 250 ML IV ONE (13:55)
[2016-12-01] MEDS ORDERED: Promethazine Inj 12.5 MG in 0.9% Sodium Chloride-Pha MIX 100 ML IV PRN (13:55)
--- NOTE | 2016-12-01 14:00 | PCM.PNMED ---
Subjective Date of Service December 01, 2016 Subjective Only got one dose of lactulose yesterday, in the am, by the time lactulose came up it was in the evening and patient refused it. Therefor it explains why the ammonia level went up Now getting lactulose and not to happy due to the loose stool. Complaining of nausea, no abdo or other pain. Exam Vital Signs Vital Sign - Last Date Time Temp Pulse Resp B/P Pulse Ox O2 Delivery O2 Flow Rate FiO2 12/01/16 11:25 89 12/01/16 10:39 36.7 156/81 98 Room Air 12/01/16 04:04 18 Exam GI; soft non acute no ascietes Resp; clear CV, regular no edema Skin; no visable rash HENT; moist mucus membranes Lab and Diagnostics Result Diagram: 11/30/16 1028 12/01/16 0710 Assessment & Plan DIAGNOSES: 1. Hepatic encephalopathy, present on admission. Active. -spoke with pharmasist now, they will schedule lactulose 4 doses per day between 6 am to 4pm. -continue rifaxamine -US no ascites -ammonia level in am -paged patient's industrial gas service helper relations specialist to discuss, family request 2. Type 2 diabetes, insulin using, present on admission. Stable. -home dose NPH 40 bid, Humulin R 40 bid, metformin 1,000 bid -A1C ordered -continue NPH 40 bid and HumR 20 bid, -hold metformin while patient nauseated and not eating well 3. Coronary artery disease, poa, stable -Continue patient's Toprol, lovastatin. -hold lasix while not eating well with nausea. VTE Mechanical Devices: Venous Foot Pump Dayday Valencia MD December 01, 2016 14:00
[2016-12-01] MEDS: 0.9% Sodium Chloride 1,000 ML IV SCH (15:04)
--- NOTE | 2016-12-01 15:30 | NUR ---
Social Work: Screening Data: Pt is a 61 y/o male admitted for hepatic encephalopathy. Pt's PCP is Dr Dutta, pt's insurance is [employer]. EMR reviewed. Pt is a recent readmit. LAY OUT FORMER will follow for possible d/c planning needs. Plan: Pt will likely d/c home when medically stable. LAY OUT FORMER will follow for possible d/c planning needs. ANAHI Rodriguez
[2016-12-01] MEDS ORDERED: Lactulose 20 Gm/30 mL 30 mL Syrup PO ONE (16:00)
[2016-12-01 17:15] VITALS: BP 158/80; PULSE 82; RESP 20; O2SAT 99
--- NOTE | 2016-12-01 18:33 | NUR ---
Nausea/Vomiting P: Pt. nauseas throughout the day. Vomited 2x. I: Treated nausea with IV Zofran q15 for a total of 16 mg in an hour. E: Pt. was still experiencing nausea with Zofran. Pt. now has an order for IV phenergan with NS. No further c/o nausea or vomiting.
[2016-12-01 20:46] VITALS: BP 168/83; PULSE 86; RESP 18; O2SAT 98
[2016-12-02] VITALS (9 sets, daily range): BP systolic 130–159; BP diastolic 72–87; PULSE 65–86; RESP 18–20; O2SAT 95–99
[2016-12-02] MEDS: 0.9% Sodium Chloride 1,000 ML IV SCH ×4 (02:26→22:30)
--- NOTE | 2016-12-02 02:51 | NUR ---
Blood Glucose Pt blood glucose taken at approximately 0230. Blood glucose level at 242. Pt and denied wanting a correctional dose. Pt and want to wait until morning to have blood sugar checked again before breakfast.
[2016-12-02] MEDS: Pantoprazole 40 mg ER24 Tablet PO SCH ×2 (06:25→20:53)
[2016-12-02] MEDS: Lactulose 20 Gm/30 mL 30 mL Syrup PO SCH ×4 (06:25→16:03)
--- NOTE | 2016-12-02 07:59 | PCM.PNMED ---
Subjective Date of Service December 02, 2016 Subjective Still some confusion but improving. Several BM loose, ammonia is coming down. Patient did recieve all 4 doses lactulose between 6am to 3pm. Exam Vital Signs Vital Sign - Last Date Time Temp Pulse Resp B/P Pulse Ox O2 Delivery O2 Flow Rate FiO2 12/02/16 05:12 36.8 77 20 156/79 98 Room Air Intake and Output 12/01/16 12/01/16 12/02/16 Cumulative From/Thru 15:00 23:00 07:00 11/30/16 10:04 - 12/02/16 06:27 Intake Total 700 ml 800 ml 2142 ml 3642 ml Balance 700 ml 800 ml 2142 ml 3642 ml Intake Oral 700 ml 800 ml 400 ml 1900 ml IV Total 1742 ml 1742 ml # Voids 1 5 5 11 # Bowel Movements 1 1 2 Exam GI; soft non acute no ascites Resp; clear CV, regular no edema Skin; no visible rash HENT; moist mucus membranes sleepy and still a bit confused but better Lab and Diagnostics Result Diagram: 11/30/16 1028 12/02/16 0605 Assessment & Plan DIAGNOSES: 1. Hepatic encephalopathy, present on admission. Active. -spoke with pharmacist now, they will schedule lactulose 4 doses per day between 6 am to 4pm. -continue rifaxamine -US no ascites -ammonia level in am -paged patient's appeals coordinator typewriters functional tester to discuss, spoke with oncall covering doctor who is not a appeals coordinator (is GI) greed with current plan but I think it would be a real good idea to call and discuss with his Draw In Hand Saturday to up date them, concur on plan and arrange follow up 2. Type 2 diabetes, insulin using, present on admission. Stable. -home dose NPH 40 bid, Humulin R 40 bid, metformin 1,000 bid -A1C ordered -continue NPH 40 bid and HumR 20 bid, -hold metformin while patient nauseated and not eating well 3. Coronary artery disease, poa, stable -Continue patient's Toprol, lovastatin. -hold Lasix while not eating well with nausea. Dispo lives with pcp is Dr rogers appeals coordinator is Dr. Zurita at [facility] VTE Mechanical Devices: Venous Foot Pump Dayday Valencia MD December 02, 2016 07:59
[2016-12-02] MEDS: MeTOProlol XL 50 mg ER24 Tablet PO SCH ×2 (08:04→20:53)
[2016-12-02] MEDS: Insulin Human REGular (HUMulin-R) 100 Unit/mL 10 mL SUBQ SCH ×2 (08:04→16:59)
[2016-12-02] MEDS: Insulin Human NPH 100 Unit/mL Syringe SUBQ SCH ×2 (08:04→16:59)
[2016-12-02] MEDS: LORazepam 0.5 mg Tablet PO SCH ×2 (08:05→20:53)
[2016-12-02] MEDS ORDERED: Glucose 40% Oral Gel 15 Gm Tube PO PRN (20:25)
[2016-12-02] MEDS: Insulin LISPRO 300 Unit/3 mL Inj SUBQ SCH (22:28)
[2016-12-03] VITALS (8 sets, daily range): BP systolic 142–164; BP diastolic 75–85; PULSE 68–73; RESP 18; O2SAT 95–100
[2016-12-03] MEDS: Pantoprazole 40 mg ER24 Tablet PO SCH ×2 (05:51→20:52)
[2016-12-03 06:53] LABS: INR 1.27 ratio
[2016-12-03] MEDS: Lactulose 20 Gm/30 mL 30 mL Syrup PO SCH ×4 (08:19→17:08)
[2016-12-03] MEDS: MeTOProlol XL 50 mg ER24 Tablet PO SCH (08:20)
[2016-12-03] MEDS: LORazepam 0.5 mg Tablet PO SCH ×2 (08:20→20:51)
[2016-12-03] MEDS: Insulin LISPRO 300 Unit/3 mL Inj SUBQ SCH ×4 (08:20→20:51)
[2016-12-03] MEDS: Insulin Human NPH 100 Unit/mL Syringe SUBQ SCH ×2 (08:56→17:34)
--- NOTE | 2016-12-03 20:56 | PCM.PNMED ---
Subjective Date of Service December 03, 2016 Subjective Had a long discussion with patient and . His feels that he is increasingly getting more dehydrated with increased doses of lactulose, but she feels that she has been following the directions that were given to them by the electrotype servicer. Prior to his TIPS procedure, he was put on propranolol instead of metoprolol. After the procedure patient started taking metoprolol again. He does not know why he is on extended release metoprolol twice a day. He feels that he is back to his baseline. Denies pain, abdominal discomfort. He takes furosemide for leg swelling, has been cutting it to as needed Exam Vital Signs Vital Sign - Last Date Time Temp Pulse Resp B/P Pulse Ox O2 Delivery O2 Flow Rate FiO2 12/03/16 05:54 36.7 73 18 148/78 98 Room Air Intake and Output 12/02/16 12/02/16 12/03/16 Cumulative From/Thru 15:00 23:00 07:00 11/30/16 10:04 - 12/03/16 05:29 Intake Total 2386 ml 400 ml 6428 ml Output Total 6 ml 6 ml Balance 2380 ml 400 ml 6422 ml Intake Oral 951 ml 400 ml 3251 ml IV Total 1435 ml 3177 ml Output Stool Total 6 ml 6 ml # Voids 6 3 20 # Bowel Movements 1 3 Exam Gen.: No acute distress HEENT: NCAT GI; soft non acute no ascites Resp; clear, no crackles or wheezes CV, regular, no S3-S4 murmurs, no edema Skin; no visible rash HENT; moist mucus membranes Neuro: Alert and oriented by 3 (however his is doing most of the talking) Psych: Negative for anxiety IVs and Medications IV Fluids Discontinued IV fluids Medications Reviewed: Medications were reviewed in detail Lab and Diagnostics Laboratory Tests Test 12/03/16 06:20 12/03/16 07:35 Prothrombin Time 13.7sec (8.1-12.5) Prothromb Time International Ratio 1.27ratio Ammonia 193ug/dL (18-53) Sodium Level 138mEq/L (134-144) Potassium Level 4.6mEq/L (3.5-5.2) Chloride Level 103mEq/L (97-108) Carbon Dioxide Level 22mmol/L (18-29) Blood Urea Nitrogen 20mg/dL (8-27) Creatinine 1.22mg/dL (0.76-1.27) Estimat Glomerular Filtration Rate 64mL/min (>59) Glucose Level 328mg/dL (60-99) Calcium Level 8.7mg/dL (8.5-10.1) Total Bilirubin 1.1mg/dL (0.0-1.2) Aspartate Amino Transf (AST/SGOT) 117U/L (0-50) Alanine Aminotransferase (ALT/SGPT) 75U/L (0-44) Alkaline Phosphatase 225U/L (25-160) Total Protein 6.2g/dL (6.4-8.4) Albumin 2.6g/dL (3.4-5.0) Result Diagram: 11/30/16 1028 12/02/16 0605 Assessment & Plan DIAGNOSES: 1. Hepatic encephalopathy, present on admission. Active. -spoke with pharmacist now, they will schedule lactulose 4 doses per day between 6 am to 4pm. -continue rifaxamine: Change it is still scheduled -US showed no ascites -ammonia level in am: Improved -Paged and discussed case with patient's electrotype servicer Dr. Henderson. He agrees with the current plan of management, states that patient just needs to titrate his lactulose properly. Dr. Henderson does not believe patient will need vitamin K for his INR. He will see the patient for follow-up after discharge. 2. Type 2 diabetes, insulin using, present on admission. Stable. -home dose NPH 40 bid, Humulin R 40 bid, metformin 1,000 bid -A1C ordered -continue NPH 40 bid, added 14 units 3 times a day with meals plus high sliding scale - May restart metformin tomorrow 5/16 a.m. 3. Coronary artery disease, poa, stable -Continue patient's Toprol, lovastatin. -Change Lasix to 20 mg every 48 hour when necessary -- Change metoprolol to 100 mg daily 4. Hypertension: He is on metoprolol succinate 100 mg twice a day -- Change dose to metoprolol succinate 100 mg daily -- Restarted his old her home medication lisinopril 20 mg by mouth daily Dispo lives with pcp is Dr rogers electrotype servicer is Dr. Zurita at [facility] We will send him home on the titrated lactulose dose, may other medication changes include metoprolol and lisinopril VTE Mechanical Devices: Venous Foot Pump Resuscitation Status: CPR: Attempt Resuscitation Time spent 30 minutes Evelyn Gongora DO December 03, 2016 06:13
[2016-12-04 01:30] VITALS: BP 148/71; PULSE 75; RESP 18; O2SAT 98
[2016-12-04 05:55] VITALS: BP 154/71; PULSE 72; RESP 20; O2SAT 97
--- NOTE | 2016-12-04 06:01 | NUR ---
Uneventful Night: Pt rested throughout the night with no complaints of pain or discomfort. Denies cardiac discomfort. No complaints of SOB or n/v. Pt refusing to wear non slid socks when up to brp. RN educated pt multiple times during the night about the importance of wearing nonslip socks while up oob. Pt and both verbalized understanding but continued to refuse. Bed locked, low position. nonslip socks within reach. Call light within reach, using appropriately. Frequent rounding in place.
[2016-12-04] MEDS: Pantoprazole 40 mg ER24 Tablet PO SCH (06:05)
[2016-12-04] MEDS: Lactulose 20 Gm/30 mL 30 mL Syrup PO SCH ×4 (06:05→17:03)
[2016-12-04] MEDS: Insulin LISPRO 300 Unit/3 mL Inj SUBQ SCH ×2 (08:00→12:09)
[2016-12-04] MEDS ORDERED: MeTOProlol XL 50 mg ER24 Tablet PO SCH (08:30)
[2016-12-04] MEDS: LORazepam 0.5 mg Tablet PO SCH (09:45)
[2016-12-04] MEDS: Insulin Human NPH 100 Unit/mL Syringe SUBQ SCH (10:21)
[2016-12-04 10:28] VITALS: PULSE 73
[2016-12-04 10:40] VITALS: BP 150/87; PULSE 69; RESP 16; O2SAT 100
--- NOTE | 2016-12-04 11:45 | NUR ---
SW -Continued Discharge Planning/Readiness for Discharge Data: Pt is on day 4 of hospitalization for hepatic encephalopathy. EMR reviewed. Per moring rounds pt will likely discharge home later today. Pt to discharge home via family. No needs assessed. SW will continue to follow. Assessment: Pt who is independent at baseline Plan: Pt likely to discharge home via POV with no needs. SW will continue to follow. ANAHI Cote
[2016-12-04 14:40] VITALS: BP 115/57; PULSE 74; RESP 16; O2SAT 98
--- NOTE | 2016-12-04 15:26 | PCM.DIMED ---
Discharge Instructions Date of Service December 04, 2016 Dates of Hospitalization November 30, 2016 at 12:41 Discharge Diagnosis Discharge Diagnosis hepatic encephalopathy, hypertension, DM II Medication Instructions Metoprolol succinate 100 mg Daily Increase lactulose to achieve 3 bowel movements a day Increase lisinopril to 40 mg QD Diet Heart Healthy Activity No restrictions Call your provider Fever or Chills, Shortness of breath, Bleeding, Chest pain, Vomitting, Excessive diarrhea, Weakness (unilateral), Other Patient Instructions Follow-up plan F/U with PCP in one week F/U with Sheet Rock Finisher koko Zurita in 2 weeks F/U BMP in one week before seeing PCP Evelyn Gongora DO December 04, 2016 15:26
[2016-12-04] MEDS ORDERED: LACT10SO60 PO (15:30)
[2016-12-04] MEDS ORDERED: METO-272 PO (15:30)
[2016-12-04] MEDS ORDERED: LORA-302 PO (15:30)
[2016-12-04] MEDS ORDERED: LISI40TA PO (15:32)
[2016-12-04] MEDS ORDERED: PROM25SU46 RC (15:37)
[2016-12-04] MEDS ORDERED: Insulin LISPRO 300 Unit/3 mL Inj SUBQ ONE (15:40)
--- NOTE | 2016-12-04 16:14 | NUR ---
SW -Discharge Data: Pt is on day 4 of hospitalization for hepatic encephalopathy. EMR reviewed. Pt is medically cleared for discharge. Pt to discharge home via family. No needs assessed. Assessment: Pt who is independent at baseline Plan: Pt to discharge home via POV with no needs. SW will continue to follow. ANAHI Cote
[2016-12-04] MEDS ORDERED: Insulin LISPRO 300 Unit/3 mL Inj SUBQ SCH (16:15)
--- NOTE | 2016-12-04 17:25 | NUR ---
Discharge Patient departed unit via wheelchair, accompanied by and staff. Patient alert and oriented at discharge. Patient denies pain, chest discomfort, shortness of breath, nausea or pain. Patient eating 90-95% of meals, oral intake good. Patient reports urination without difficulty and continues to have loose stools secondary to lactulose. Discharge instructions/medications reviewed with patient and family prior to discharge. All questions addressed. Discharge instructions, patient belongings and prescription in hand.
--- NOTE | 2016-12-04 22:19 | PCM.DC.MED ---
Discharge Summary Date of Service December 04, 2016 Dates of Hospitalization Date of Hospital Admission November 30, 2016 at 12:41 Date of Discharge: December 04, 2016 Providers: Admitting Physician: Dayday Valencia MD Primary Care Physician: Patt Dutta MD Attending Physician: Dayday Valencia MD Diagnosis at Time of Discharge Diagnosis at Time of Discharge hepatic encephalopathy, hypertension, DM II Consultations None Hospital Course DIAGNOSES: 1. Hepatic encephalopathy, present on admission. Active. -spoke with pharmacist now, they will schedule lactulose 4 doses per day between 6 am to 4pm. -continue rifaxamine: Change it is still scheduled -US showed no ascites -ammonia level in am: Improved -Paged and discussed case with patient's grocery sacker Dr. Henderson. He agrees with the current plan of management, states that patient just needs to titrate his lactulose properly. Dr. Henderson does not believe patient will need vitamin K for his INR. He will see the patient for follow-up after discharge. -- Discussed patient's ammonia levels with both Dr. Ledezma and Dr. Burgess maltese they feel ammonia levels should not be trended and as long as patient is mentating well, he can go home. -- He is discharged on his lactulose regimen from in. He is asked to titrate the dose to 3 stools per day 2. Type 2 diabetes, insulin using, present on admission. Stable. -home dose NPH 40 bid, Humulin R 40 bid, metformin 1,000 bid -A1C ordered 7.4 -continue NPH 40 bid, added 14 units 3 times a day with meals plus high sliding scale -- Patient is given 10 units of humalog prior to d/c as BG was around 300 (his meal time insulin of 14 units was missed). He is asked to recheck at supper time after going home. He did not want to stay overnight for this and is agreeable to this plan. - May restart metformin tomorrow 5/16 a.m. 3. Coronary artery disease, poa, stable -Continue patient's Toprol, lovastatin. -Change Lasix to 20 mg every 48 hour when necessary -- Change metoprolol succinate to 100 mg daily 4. Hypertension: He is on metoprolol succinate 100 mg twice a day -- Change dose to metoprolol succinate 100 mg daily -- Restarted his old her home medication lisinopril 20 mg by mouth daily -- Increased lisinopril to 20 mg PO BID due to poor control of BP. Exam Vital Signs (Last) Date Time Temp Pulse Resp B/P Pulse Ox O2 Delivery O2 Flow Rate FiO2 12/04/16 14:40 36.3 74 16 115/57 98 Room Air Exam Gen.: No acute distress HEENT: NCAT GI; soft non acute no ascites Resp; clear, no crackles or wheezes CV, regular, no S3-S4 murmurs, no edema Skin; no visible rash HENT; moist mucus membranes Neuro: Alert and oriented by 3. Was able to answer questions on short term and terminal computer operator family details, street address, president's name. Stated could not do math multiplication as baseline.neg for confusion Psych: Negative for anxiety Test 11/30/16 10:20 11/30/16 10:28 11/30/16 10:42 12/02/16 06:05 Magnesium Level 1.8mg/dL (1.6-2.6) Lipase 34U/L (13-60) White Blood Count 6.8th/mm3 (3.8-10.1) Red Blood Count 4.18mil/mm3 (4.40-5.80) Hemoglobin 12.8g/dL (13.8-17.2) Hematocrit 35.9% (41.0-50.0) Mean Corpuscular Volume 85.9fL (81-100) Mean Corpuscular Hemoglobin 30.6pg (27.0-35.0) Mean Corpuscular Hemoglobin Concent 35.7% (32.0-37.0) Red Cell Distribution Width 16.5% (12.3-15.4) Platelet Count 86bil/L (150-400) Neutrophils (%) (Auto) 62.6% (40-74) Lymphocytes (%) (Auto) 16.9% (14-46) Monocytes (%) (Auto) 13.0% (4-12) Eosinophils (%) (Auto) 6.8% (0-5) Basophils (%) (Auto) 0.6% (0-3) Hold Mcguire Top Tube Received (Received) Urine Color Yellow (YELLOW) Urine Appearance Hazy (CLEAR,HAZY) Urine pH 5.5 (5.0-8.0) Urine Specific Pound 1.015 (1.003-1.035) Urine Protein Negativemg/dL (NEG,TRACE) Urine Glucose (UA) Negativemg/dL (NEGATIVE) Urine Ketones Negativemg/dL (NEGATIVE) Urine Occult Blood Negative (NEGATIVE) Urine Nitrite Negative (NEGATIVE) Urine Bilirubin Negative (NEGATIVE) Urine Urobilinogen Normalmg/dL (NORMAL) Urine Leukocyte Esterase Negative (NEGATIVE) Urine RBC 3-10/hpf (0-2) Urine WBC 0-5/hpf (0-5) Urine Epithelial Cells Occasional/hpf (NONE-MOD) Urine Crystals None seen (NONE SEEN) Urine Bacteria None/hpf (NONE-FEW) Urine Hyaline Casts None/lpf (NONE) Urine Granular Casts None seen (NONE SEEN) Urine Waxy Casts None seen (NONE SEEN) Urine Red Blood Cell Casts None seen (NONE SEEN) Urine White Blood Cell Casts None seen (NONE SEEN) Urine Mucus Present (None Seen) Urine Trichomonas None seen (NONE SEEN) Urine Yeast None (NONE SEEN) Urinalysis Comment None Urine Culture Reflexed Not indicated Hemoglobin A1c 7.0% (4.8-5.6) Test 12/03/16 06:20 12/03/16 07:35 12/04/16 06:25 Prothrombin Time 13.7sec (8.1-12.5) Prothromb Time International Ratio 1.27ratio Total Bilirubin 1.1mg/dL (0.0-1.2) Aspartate Amino Transf (AST/SGOT) 117U/L (0-50) Alanine Aminotransferase (ALT/SGPT) 75U/L (0-44) Alkaline Phosphatase 225U/L (25-160) Total Protein 6.2g/dL (6.4-8.4) Albumin 2.6g/dL (3.4-5.0) Sodium Level 137mEq/L (134-144) Potassium Level 4.6mEq/L (3.5-5.2) Chloride Level 103mEq/L (97-108) Carbon Dioxide Level 21mmol/L (18-29) Blood Urea Nitrogen 16mg/dL (8-27) Creatinine 1.23mg/dL (0.76-1.27) Estimat Glomerular Filtration Rate 63mL/min (>59) Glucose Level 382mg/dL (60-99) Calcium Level 8.8mg/dL (8.5-10.1) Ammonia 254ug/dL (18-53) Discharge Medications Discharge Medications Esomeprazole Magnesium (Nexium) 40 Mg Capsule.dr 40 MG PO BID (Reported) Gabapentin (Gabapentin) 300 Mg Capsule 300 MG PO HS (Reported) Insulin Regular, Human (HUMulin-R U100 Insulin Vial) 100 Unit/1 Ml Vial 40 UNITS SUBQ bid IN AM AND DINNER (Reported) Lactulose (Lactulose) 20 Gm/30 Ml Solution 20 GM PO 07,10,13,16 Prescribed by: EVELYN ESCUDERO DO Lisinopril (Lisinopril) 40 Mg Tablet 40 MG PO DAILY Prescribed by: EVELYN ESCUDERO DO Lorazepam (Ativan) 0.5 Mg Tablet 0.25 MG PO BID Prescribed by: EVELYN ESCUDERO DO Lovastatin (Lovastatin) 10 Mg Tablet 10 MG PO Q48 HRS (Reported) Metformin ER (Fortamet) 1,000 Mg Tab.er.24 1,000 MG PO BID (Reported) Metoprolol Succinate ER (Metoprolol Succinate ER) 50 Mg Tab.er.24h 100 MG PO DAILY Prescribed by: EVELYN ESCUDERO DO NPH, Human Insulin Isophane (HUMulin-N U100 Insulin Vial) 100 Unit/1 Ml Vial 40 UNITS SUBQ BID IN AM AND HS (Reported) As needed Ondansetron ODT (Zofran ODT) 4 Mg Tablet 4 MG PO Q4H PRN PRN For Nausea Prescribed by: INOCENCIA NOEL MD Promethazine HCl (Phenergan) 25 Mg Supp.rect 12.5 MG RC TID PRN PRN prn Prescribed by: EVELYN ESCUDERO DO Rifaximin (Xifaxan) 550 Mg Tablet 550 MG PO BID PRN PRN For Agitation (Reported ) Patient uses this with lactulose 20mg PRN for SX of HE Additional med instructions Metoprolol succinate 100 mg Daily Increase lactulose to achieve 3 bowel movements a day Increase lisinopril to 40 mg QD Followup Plan Follow-up plan F/U with PCP in one week F/U with Numerical Control Router Operator koko Zurita in 2 weeks F/U BMP in one week before seeing PCP Discharge Diet: Heart Healthy Discharge Activity: No restrictions Evelyn Escudero DO December 04, 2016 22:19
== END 2016-12-04 17:00 | disposition home or self-care (01) | DRG 443 ==
LOC: SED 10:00 → INTOOBSV 12:41 → OBSVTOIN 12:41 → MPC 12:41
PROVIDERS: ADMIT Hospitalist; ATTEND Hospitalist
DX: K72.90 Hepatic failure, unspecified without coma (principal); I10 Essential (primary) hypertension; E11.9 Type 2 diabetes mellitus without complications; Z79.4 Long term (current) use of insulin; I25.10 Atherosclerotic heart disease of native coronary artery without angina pectoris; Z95.1 Presence of aortocoronary bypass graft

== ENCOUNTER 2017-01-30 11:03 | Inpatient (IN) | payer OTHER ==
[~2017-01-30] VITALS: Ht 177.8 cm; Wt 100.2 kg
[~2017-01-30 11:03] MED LIST changes: -FURO40TA4 PO; +LACT10SO60 PO; -LACT10SO64 PO; +LISI40TA PO; +LORA-302 PO; +METF-413 PO; -METF1000 PO; +METO-272 PO; +PROM25SU46 RC
[2017-01-30 11:11] VITALS: BP 190/82; PULSE 78; RESP 16; O2SAT 99
--- NOTE | 2017-01-30 11:23 | ED.REPORT ---
HPI-General Illness Date of Service Jan 30, 2017 ED Provider: 61-year-old generally active male with past medical history of cirrhosis presents today with increasing confusion. He was seen [address] Dutta who ran multiple labs which showed a creatinine of 1.8. Dr. Dutta called the family and instructed them to come to the ER today so the patient might be put on IV fluids and optimized. The family states that he is more confused than normal today. He is typically able to go to work and is able to perform many activities of daily living, however the last 24 hours he has declined substantially. Patient is lying in the bed with eyes closed, he is able to state his name, and where he is currently, however he is unsure what year it is and had some difficulty determining his location. Patient's history was discussed and the family was in the room, patient was confused and we are unable to obtain an appropriate review of systems at this time. Nursing Notes Stated Complaint: NEEDING FLUIDS,WEAK Chief Complaint: General Complaint Nursing Notes Reviewed: Yes Allergies: Coded Allergies: shellfish derived (Verified Allergy, Mild, SWELLING, 11/30/16) Scheduled Esomeprazole Magnesium (Nexium) 40 Mg Capsule.dr 40 MG PO BID Gabapentin (Gabapentin) 600 Mg Tablet 600 MG PO HS Insulin Regular, Human (HUMulin-R U100 Insulin Vial) 100 Unit/1 Ml Vial 40 UNITS SUBQ bid IN AM AND DINNER Lactulose (Lactulose) 20 Gm/30 Ml Solution 20 GM PO 07,10,13,16 Lisinopril (Lisinopril) 40 Mg Tablet 40 MG PO DAILY Lovastatin (Lovastatin) 10 Mg Tablet 10 MG PO Q48 HRS Metformin ER (Fortamet) 1,000 Mg Tab.er.24 1,000 MG PO BID Metoprolol Succinate ER (Metoprolol Succinate ER) 50 Mg Tab.er.24h 100 MG PO DAILY NPH, Human Insulin Isophane (HUMulin-N U100 Insulin Vial) 100 Unit/1 Ml Vial 40 UNITS SUBQ BID IN AM AND HS Scheduled PRN Ondansetron ODT (Zofran ODT) 4 Mg Tablet 4 MG PO Q4H PRN PRN For Nausea Promethazine HCl (Phenergan) 25 Mg Supp.rect 12.5 MG RC TID PRN PRN prn Rifaximin (Xifaxan) 550 Mg Tablet 550 MG PO BID PRN PRN For Agitation Patient uses this with lactulose 20mg PRN for SX of HE General Time Seen by MD: 11:22 Chief Complaint Other (confusion) Hx Obtained From: Patient Sudden in Onset?: No Onset Occurred: 2 days ago Symptom Duration: Since onset Severity: Current: No pain currently Past Medical History Past Medical History Notes: Sleeve Sewer: Dr. Greenfield PCP: Dr. Dutta Past Medical History Non-alcoholic cirrhosis with ascites SD Diverticulitis ulcer Reports: Coronary artery disease, Diabetes mellitus, Hyperlipidemia, Hypertension Past Surgical History Colon repair after a tear Gastric lap band Coronary bypass graft surgery Toe amputation TIPS procedure, trhough jugular 10/29/16 CABG, TAVR Reports: Cholecystectomy Reports: Carpal tunnel Family History Reports: Coronary artery disease, Diabetes mellitus, Stroke Smoking History Unknown if Ever Smoker Social History Alcohol Use: Denies alcohol use Drug Use: Denies drug use Other Social History: Good social support, Lives alone, Local resident 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 Ambulatory Status Independent Review of Systems Full Review of Systems Constitutional: Reports: Malaise Respiratory: Denies: Dyspnea on exertion Cardiovascular: Denies: Chest pain GI: Denies: Abdominal pain Psychiatric: Reports: Change mental status, Confusion Complete sys rev & neg: except as marked. Physical Exam Asterixis present Vital Signs Vital Signs Date Time Temp Pulse Resp B/P Pulse Ox O2 Delivery O2 Flow Rate FiO2 01/30/17 12:44 83 14 194/77 100 Room Air 01/30/17 11:51 83 14 182/68 98 Room Air 01/30/17 11:11 36.5 78 16 190/82 99 Room Air Initial VS: Reviewed General/Constitutional: Well-developed, Well-nourished Head / Eyes: Atraumatic, Normocephalic, PERRL ENT: Mucous membranes moist, Conjunctiva normal Neck: Supple, Non-tender, Full range of motion Respiratory: Breath sounds normal, Clear to auscultation, No respiratory distress Cardiovascular: Regular rate & rhythm, Heart sounds normal, Intact distal pulses Abdomen / GI: Soft, Non-tender, No guarding, No rebound, No distention Extremities: Vascular intact, No tenderness Skin: Warm, Dry, No cyanosis Neurologic: Alert, Oriented, Nonfocal Psychiatric: Mood/affect normal, Behavior normal, Normal thought content Right Ankle: Positive: Swelling present... (Moderate) Left Ankle: Positive: Swelling present... (Moderate) Mental Status: Positive: Confused, Disoriented to time, Lethargic, Responds to verbal stim, Negative: Disoriented to person, Disoriented to place Speech: Positive: Slow Interpretation & Diagnostics Lab Results Interpretation Result Diagram: 01/30/17 1150 01/30/17 1150 Test 01/30/17 11:50 White Blood Count 6.4th/mm3 (3.8-10.1) Red Blood Count 4.21mil/mm3 (4.40-5.80) Hemoglobin 12.9g/dL (13.8-17.2) Hematocrit 36.4% (41.0-50.0) Mean Corpuscular Volume 86.5fL (81-100) Mean Corpuscular Hemoglobin 30.6pg (27.0-35.0) Mean Corpuscular Hemoglobin Concent 35.4% (32.0-37.0) Red Cell Distribution Width 15.0% (12.3-15.4) Platelet Count 48bil/L (150-400) Neutrophils (%) (Auto) 72.3% (40-74) Lymphocytes (%) (Auto) 13.5% (14-46) Monocytes (%) (Auto) 8.5% (4-12) Eosinophils (%) (Auto) 5.0% (0-5) Basophils (%) (Auto) 0.5% (0-3) Prothrombin Time 13.6sec (8.1-12.5) Prothromb Time International Ratio 1.26ratio Sodium Level 136mEq/L (134-144) Potassium Level 5.0mEq/L (3.5-5.2) Chloride Level 98mEq/L (97-108) Carbon Dioxide Level 19mmol/L (18-29) Blood Urea Nitrogen 33mg/dL (8-27) Creatinine 1.61mg/dL (0.76-1.27) Estimat Glomerular Filtration Rate 46mL/min (>59) Glucose Level 186mg/dL (60-99) Calcium Level 10.2mg/dL (8.5-10.1) Magnesium Level 1.8mg/dL (1.6-2.6) Total Bilirubin 1.8mg/dL (0.0-1.2) Aspartate Amino Transf (AST/SGOT) 42U/L (0-50) Alanine Aminotransferase (ALT/SGPT) 33U/L (0-44) Alkaline Phosphatase 136U/L (25-160) Ammonia 216ug/dL (18-53) Total Protein 7.2g/dL (6.4-8.4) Albumin 3.1g/dL (3.4-5.0) Lipase 18U/L (13-60) Hold Mcguire Top Tube Received (Received) Lab Results Interpretation: H&H indicates Slightly anemic BUN/creatinine significant elevation, likely due to dehydration Glucose appropriate Procedures Procedure Notes: Limited bedside abd US: no significant ascites Re-Eval/Medical Decision Med Decision/Clinical Course Based on his history he will need to be admitted to the hospital for further workup and optimizing of his fluid levels. Bedside ultrasound reveals no pooling fluid in the abdomen. Patient placed on gentle hydration, lactulose and rifaximin given. , son, and daughter in the room supporting the patient. Consultation : Referral / Consult Name: Snehal Baird DO Consulted With: Hospitalist Call Returned at: 13:15 Beadworker: Will see patient, Agrees with plan, Accepts admit Note: We discussed the patient's status including the fact that he is currently receiving gentle fluids, that he has received lactulose and rifaximin. Counseled Regarding: Diagnosis, Lab results, Need for admission Discharge & Departure Primary Impression: Hepatic encephalopathy Additional Impression: Cirrhosis, non-alcoholic Disposition: ADMITTED TO HOSPITAL Discharge Condition All VS Reviewed: Yes Condition: Stable Referrals: Patt Dutta MD (PCP) (Family) Attending Statement The patient was seen and examined together with Dr. Waite on 01/30/17 and I have added additional information to the note above. copies to: Patt Dutta MD, Timothy S DO Jan 30, 2017 11:23 Hao Pritchett DO Jan 30, 2017 12:03
[2017-01-30 11:51] VITALS: BP 182/68; PULSE 83; RESP 14; O2SAT 98
[2017-01-30 12:00] LABS: BASOPHILS % (AUTO) 0.5 % (0-3); MONOCYTES % (AUTO) 8.5 % (4-12); Mean Corpuscular Hemoglobin 30.6 pg (27.0-35.0); Mean Corpuscular Volume 86.5 fL (81-100); NEUTROPHILS % (AUTO) 72.3 % (40-74); Platelet Count 48 bil/L (150-400)
[2017-01-30] MEDS ORDERED: 0.9% Sodium Chloride 500 ML IV ONE (12:00)
[2017-01-30] MEDS ORDERED: Lactulose 20 Gm/30 mL 30 mL Syrup PO ONE (12:00)
[2017-01-30] MEDS ORDERED: 0.9% Sodium Chloride 1,000 ML IV SCH (12:00)
[2017-01-30 12:18] LABS: INR 1.26 ratio
[2017-01-30 12:21] LABS: Magnesium 1.8 mg/dL (1.6-2.6)
[2017-01-30 12:44] VITALS: BP 194/77; PULSE 83; RESP 14; O2SAT 100
[2017-01-30] MEDS ORDERED: GABA600T2 PO (13:27)
[2017-01-30] MEDS ORDERED: Alum-Mag Hydrox-Simeth 30 mL Suspension PO PRN ×2 (13:35→14:25)
[2017-01-30] MEDS ORDERED: Ondansetron 2 mg/mL 2 mL Inj IVPUSH PRN ×2 (13:35→14:25)
[2017-01-30] MEDS ORDERED: Polyethylene Glycol (PEG) 17 Gm Powder PO PRN (14:25)
[2017-01-30] MEDS: 0.9% Sodium Chloride 1,000 ML IV SCH ×2 (14:25→17:21)
--- NOTE | 2017-01-30 14:25 | PCM.HPMED ---
Subjective Date of Service Jan 30, 2017 Primary Provider: Admitting Physician: Primary Care Physician: Patt Dutta MD Attending Physician: Chief Complaint: Altered mental status History of Present Illness: Castro Flores is a 61-year-old man with past medical history significant for SAPP cirrhosis with history of esophageal varices and hepatic encephalopathy, coronary artery disease status post CABG, insulin using uncontrolled type II diabetes who presents to the hospital emergency department due to direction from his provider for IV fluids. Patient was seen for follow-up 2 days ago and his primary care physician's office and routine labs were ordered. Upon review of his labs as noted his creatinine had gone up to 1.8. He was called by his PCPs office and directed to go to the emergency department for IV fluids. During his visit patient complaining of somewhat worsening cognition. Today per the family patient is more confused than his usual baseline. Report the patient is usually able to perform activities of daily living without issue. Within the last 24 hours patient has declined substantially. At this time records review and present family. Patient's reports that the patient had missed his morning doses of lactulose and took them later in the evening because he forgot to take him to work. Emergency department his vital signs are notable for hypertension. He was treated with 1 L of normal saline, rifaximin and 20 g of lactulose. Review of Systems: A comprehensive review of systems was conducted with the patient and found to be negative except as above in the History of Present Illness Allergies Coded Allergies: shellfish derived (Verified Allergy, Mild, SWELLING, 11/30/16) Home Medications Castro Flores. [id number] 01/28/2017 04:00 PM 07/26 Start Date Medication Directions Stop Date 12/30/2015 Blood Glucose Test strips use to test blood glucose levels 3 times daily for diabetes. 01/28/2017 furosemide 20 mg tablet take 1 tablet by oral route every day 01/28/2017 gabapentin 300 mg capsule take 2 capsules by oral route once at bedtime 06/21/2016 Humulin N 100 unit/mL subcutaneous suspension take 40 units by subcutaneous route 2x/day with breakfast and at bedtime for diabetes. 06/21/2016 Humulin R 100 unit/mL injection solution 30-40 units subcutaneous in AM and 30-40units ac larissa meals PRN for diabetes. lactulose 10 gram/15 mL oral solution take 30 milliliter by oral route 4 times every day 12/21/2016 lactulose 10 gram/15 mL oral solution take 30 milliliter by oral route 4 times every day 12/05/2016 lisinopril 40 mg tablet take 1 tablet by oral route every day 11/16/2016 lovastatin 10 mg tablet TAKE ONE TABLET every other day WITH EVENING MEAL 05/14/2016 metformin 1,000 mg tablet take 1 tablet (1000MG) by ORAL route 2 times every day with morning and evening meals for diabetes. 06/21/2016 Nexium 40 mg capsule,delayed release Take 1 capsule by oral route 2 times everyday before meals for diabetes. 01/28/2017 ondansetron [address] 1 tablet by translingual route every 8 hours as needed, where it will dissolve, then swallow 02/17/2017 10/29/2016 SYR BD JUAN UFIN SHRT 1ML 10'S 31G5/16 USE THREE TIMES A DAY FOR DIABETES 01/28/2017 Toprol XL 100 mg tablet,extended release TAKE 1 TABLET (100MG) BY ORAL ROUTE EVERY DAY FOR HEART 11/16/2016 Xifaxan 550 mg tablet take 1 tablet by oral route 2 times every day Exam Vital Signs & I/O Vital Sign- Last 8 Hours Date Time Temp Pulse Resp B/P Pulse Ox O2 Delivery O2 Flow Rate FiO2 01/30/17 14:56 36.4 78 18 181/77 99 Room Air 01/30/17 12:44 83 14 194/77 100 Room Air 01/30/17 11:51 83 14 182/68 98 Room Air 01/30/17 11:11 36.5 78 16 190/82 99 Room Air Lab & Micro Results Laboratory Tests Test 01/30/17 11:50 White Blood Count 6.4th/mm3 (3.8-10.1) Red Blood Count 4.21mil/mm3 (4.40-5.80) Hemoglobin 12.9g/dL (13.8-17.2) Hematocrit 36.4% (41.0-50.0) Mean Corpuscular Volume 86.5fL (81-100) Mean Corpuscular Hemoglobin 30.6pg (27.0-35.0) Mean Corpuscular Hemoglobin Concent 35.4% (32.0-37.0) Red Cell Distribution Width 15.0% (12.3-15.4) Platelet Count 48bil/L (150-400) Neutrophils (%) (Auto) 72.3% (40-74) Lymphocytes (%) (Auto) 13.5% (14-46) Monocytes (%) (Auto) 8.5% (4-12) Eosinophils (%) (Auto) 5.0% (0-5) Basophils (%) (Auto) 0.5% (0-3) Prothrombin Time 13.6sec (8.1-12.5) Prothromb Time International Ratio 1.26ratio Sodium Level 136mEq/L (134-144) Potassium Level 5.0mEq/L (3.5-5.2) Chloride Level 98mEq/L (97-108) Carbon Dioxide Level 19mmol/L (18-29) Blood Urea Nitrogen 33mg/dL (8-27) Creatinine 1.61mg/dL (0.76-1.27) Estimat Glomerular Filtration Rate 46mL/min (>59) Glucose Level 186mg/dL (60-99) Calcium Level 10.2mg/dL (8.5-10.1) Magnesium Level 1.8mg/dL (1.6-2.6) Total Bilirubin 1.8mg/dL (0.0-1.2) Aspartate Amino Transf (AST/SGOT) 42U/L (0-50) Alanine Aminotransferase (ALT/SGPT) 33U/L (0-44) Alkaline Phosphatase 136U/L (25-160) Ammonia 216ug/dL (18-53) Total Protein 7.2g/dL (6.4-8.4) Albumin 3.1g/dL (3.4-5.0) Lipase 18U/L (13-60) Hold Mcguire Top Tube Received (Received) Result Diagram: 01/30/17 1150 01/30/17 1150 Review of Systems: Constitutional: Negative, except as otherwise mentioned in the history above. Ophthalmologic: Negative, except as otherwise mentioned in the history above. Cardiovascular: Negative, except as otherwise mentioned in the history above. Respiratory: Negative, except as otherwise mentioned in the history above. Gastrointestinal: Negative, except as otherwise mentioned in the history above. Genitourinary: Negative, except as otherwise mentioned in the history above. Musculoskeletal: Negative, except as otherwise mentioned in the history above. Neurological: Negative, except as otherwise mentioned in the history above. Psychiatric: Negative, except as otherwise mentioned in the history above. Hematologic/Lymphatic: Negative, except as otherwise mentioned in the history above. Allergic/Immunologic: Negative, except as otherwise mentioned in the history above. 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 Hypertension Coronary artery disease status post CABG Diabetes mellitus, insulin using, uncontrolled Hyperlipidemia Neuropathy Aortic stenosis status post TAVR Surgical History Coronary bypass graft surgery TAVR Cholecystectomy TIPS procedure Gastric lap band Colon Repair Family History Family history positive for coronary artery disease, diabetes mellitus and strokes. Social History Hx Alcohol Use: No Hx Substance Use: No Hx Tobacco Use: No Smoking Status: Unknown if Ever Smoker Exam Vital Signs Vital Sign - Last Date Time Temp Pulse Resp B/P Pulse Ox O2 Delivery O2 Flow Rate FiO2 01/30/17 12:44 83 14 194/77 100 Room Air 01/30/17 11:11 36.5 Exam General: No acute distress, well-developed, well-nourished, not interactive in conversation. HEENT: Normocephalic, atraumatic. External ears without defect. Pupils equal, round, and reactive to light and accommodation. Anicteric sclerae, moist conjunctivae, and no lid lag. Oropharynx free of erythema and cobble stoning with moist mucosa. Neck: Supple with full range of motion. No jugular venous distension. No bruits. No lymphadenopathy or thyromegaly. Cardiovascular: Regular rhythm, cardiac with no murmur appreciated. Pulmonary: Clear to auscultation bilaterally with no crackles, wheezes, or rhonchi. Normal respiratory effort with no use of accessory muscles. Abdomen: Bowel tones present. Soft, nontender, nondistended. No hepatosplenomegaly or masses appreciated. A hardened midline scar appreciated. Extremities: Mild bilateral lower extremity edema. No clubbing. Skin: Normal temperature, turgor, and texture; no rash, ulcers, or subcutaneous nodules appreciated. Neurological: Cranial nerves grossly intact. Normal muscle strength, tone, and bulk. Reflexes, coordination, and sensory function within normal limits. No known gait impairment. Positive for asterixis Psychiatric: Mildly agitated. Alert to self. Fixating and ruminating on his telemetry leads and IV tubing. Lab and Diagnostics Result Diagram: 01/30/17 1150 01/30/17 1150 Assessment & Plan Castro Flores is a 61-year-old man with past medical history significant for SAPP cirrhosis with history of esophageal varices and hepatic encephalopathy, coronary artery disease status post CABG, insulin using uncontrolled type II diabetes who presents to the hospital emergency department due to direction from his provider for IV fluids Decompensated SAPP cirrhosis complicated by worsening hepatic encephalopathy with thrombocytopenia, present on admission, active -MELD score of 17 with a 3 month mortality of 6%. Ammonia significantly elevated on admission. The patient's 's report patient does normally run a very elevated ammonia level even while functioning well. -Continue lactulose, rifaximin -Hold furosemide -Continue to monitor platelets -Hold prophylactic heparin Acute kidney injury, present on admission, active -Likely due to prerenal azotemia. Already improved since lab draw 2 days ago. -Continue IVF Severe asymptomatic hypertension, present on admission, active -Hold lisinopril -Give one dose of Labetalol Chronic issues, present on admission: CAD s/p CABG -Continue lovastatin and metoprolol Diabetes Mellitus Type 2, insulin using, uncontrolled, complicated by neuropathy -Hold outpatient by mouth medication -Continue with outpatient regiment, reduced by 30%. -Continue gabapentin Aortic stenosis status post TAVR CODE STATUS: FULL CODE Patient is admitted under inpatient status with expected length of stay greater than 2 midnights due to severity of presenting symptoms, risk of adverse event, and complexity of treatment plan. Resuscitation Status: CPR: Attempt Resuscitation Attending Statement The patient was seen and examined together with Dr. Denis on 01/30/17 and I agree with the history, exam and plan as outlined in the note above. Neha Denis DO Jan 30, 2017 13:38 Waqar Crawley Jan 30, 2017 19:07
[2017-01-30] MEDS ORDERED: Glucose 40% Oral Gel 15 Gm Tube PO PRN (14:30)
[2017-01-30] MEDS: Lactulose 20 Gm/30 mL 30 mL Syrup PO SCH ×2 (14:54→20:30)
[2017-01-30 14:56] VITALS: BP 181/77; PULSE 78; RESP 18; O2SAT 99
[2017-01-30] MEDS: Insulin Human NPH 100 Unit/mL Syringe SUBQ SCH (16:41)
--- NOTE | 2017-01-30 16:48 | NUR ---
Admission Patient admitted to the floor at 1450. Admit questions and med list accomplished by admit nurse. patient complained of 0/10 pain. Vitals - t-36.4, bp-181/77, p-78, rr-18, o2-99 RA. Oriented patient to the room, placed bed in lowest position and call light within reach.
[2017-01-30 20:29] VITALS: BP 133/68; PULSE 95; RESP 18; O2SAT 98
--- NOTE | 2017-01-30 21:15 | NUR ---
Lactulose/diarrhea Patient declines 2030 dose has already had 3 loose stools and feels he'll he more
--- NOTE | 2017-01-30 23:44 | NUR ---
Telemetry Orders obtained to place on telemetry SR 80's per tech
[2017-01-31] MEDS: 0.9% Sodium Chloride 1,000 ML IV SCH ×2 (01:32→10:25)
[2017-01-31 05:02] VITALS: BP 145/79; PULSE 78; RESP 18; O2SAT 98
[2017-01-31 07:03] VITALS: PULSE 87
[2017-01-31] MEDS: Lactulose 20 Gm/30 mL 30 mL Syrup PO SCH (07:37)
[2017-01-31] MEDS: Insulin LISPRO Medium-Dose Scale SUBQ SCH ×2 (07:37→11:58)
[2017-01-31 08:26] LABS: BASOPHILS % (AUTO) 0.5 % (0-3); EOSINOPHILS % (AUTO) 5.4 % (0-5); MONOCYTES % (AUTO) 11.7 % (4-12); Mean Corpuscular Hemoglobin 31.3 pg (27.0-35.0); Mean Corpuscular Volume 88.7 fL (81-100); NEUTROPHILS % (AUTO) 60.2 % (40-74); Platelet Count 40 bil/L (150-400)
[2017-01-31] MEDS ORDERED: MeTOProlol XL 50 mg ER24 Tablet PO SCH (08:30)
[2017-01-31 08:33] LABS: INR 1.26 ratio
[2017-01-31 08:38] LABS: Magnesium 1.6 mg/dL (1.6-2.6)
[2017-01-31] MEDS: Insulin Human NPH 100 Unit/mL Syringe SUBQ SCH (08:43)
[2017-01-31 10:04] LABS: APPEARANCE,URINE CLEAR (CLEAR,HAZY); COLOR,URINE YELLOW (YELLOW); OCCULT BLOOD,URINE TRACE (NEGATIVE); PH,URINE 5.5 (5.0-8.0); UROBILINOGEN,URINE NORMAL (NORMAL)
--- NOTE | 2017-01-31 11:16 | NUR ---
Social Work: Brief Note / Multidisciplinary Rounds Data: Pt is a 61 y/o male admitted for hepatic, encephalopathy. Pt's PCP is Dr Dutta, pt's insurance is [facility] Med plan. EMR reviewed, readmit score is 5, high. Pt discussed in rounds. No d/c planning needs identified at this time. RELAY OPERATOR will continue to follow for possible d/c needs. Assessment: Pt who is independent at baseline. Plan: Pt will d/c home via POV when medically stable. No d/c planning needs identified at this time. RELAY OPERATOR will continue to follow for possible d/c needs. ANAHI Rodriguez
--- NOTE | 2017-01-31 11:47 | PCM.DIMED ---
Discharge Instructions Date of Service Jan 31, 2017 Dates of Hospitalization Jan 30, 2017 at 13:58 Discharge Diagnosis Discharge Diagnosis # Acute hepatic encephalopathy. Present on admission. Improved # Acute dehydration, present on admission. Improved # Acute kidney injury, present on admission. Improved with hydrations. 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 Improved # History of coronary artery disease (CAD) post CABG # Chronic Diabetes Mellitus Type 2, insulin using, uncontrolled, complicated by neuropathy # History of aortic stenosis status post TAVR Diet Discharge Diet: Low fat, Low Sodium, Heart Healthy, Diabetic Activity Discharge Activity: No restrictions Call your provider Call your provider for: Fever or Chills, Shortness of breath, Bleeding, Chest pain, Vomitting, Other (Confusion) Patient Instructions Patient Instructions Seek immediate medical attention if any new or worsening signs or symptoms occur. Follow-up plan 1. Followup with your primary care provider within one week and to address further management of diabetes. 2. Followup with your clerk secretary as previously planned. Follow-up Provider: Patt Dutta MD, Masoud Jan 31, 2017 11:47
[2017-01-31 11:57] VITALS: PULSE 83
--- NOTE | 2017-01-31 12:20 | NUR ---
Social Work: Discharge Data: Pt is on day 1 of hospitalization. EMR reviewed. D/C orders are in. No d/c planning needs at this time. TREADLE CUT OFF SAW OPERATOR will continue to follow if needs arise. Assessment: Pt who is independent at baseline. Plan: Pt will d/c home via POV today. No d/c planning needs at this time. TREADLE CUT OFF SAW OPERATOR will continue to follow if needs arise. ANAHI Rodriguez
--- NOTE | 2017-01-31 12:21 | NUR ---
discharge paperwork reviewed, no questions at this time. pt denies pain/distress. pt transported to private car via W/C to return to private home with .
--- NOTE | 2017-01-31 16:20 | PCM.DC.MED ---
Discharge Summary Date of Service Jan 31, 2017 Dates of Hospitalization Date of Hospital Admission Jan 30, 2017 at 13:58 Date of Discharge: Jan 31, 2017 Providers: Admitting Physician: Waqar Crawley Primary Care Physician: Patt Dutta MD Attending Physician: Waqar Crawley Diagnosis at Time of Discharge Diagnosis at Time of Discharge # Acute hepatic encephalopathy. Present on admission. Resolved sooner than expected. # Acute dehydration, present on admission. Improved # Acute kidney injury, present on admission. Improved with hydrations. 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 Improved # History of coronary artery disease (CAD) post CABG # Chronic Diabetes Mellitus Type 2, insulin using, uncontrolled, complicated by neuropathy # History of aortic stenosis status post TAVR Brief History As noted in H&P by Dr. Denis: Castro Flores is a 61-year-old man with past medical history significant for SAPP cirrhosis with history of esophageal varices and hepatic encephalopathy, coronary artery disease status post CABG, insulin using uncontrolled type II diabetes who presents to the hospital emergency department due to direction from his provider for IV fluids. Patient was seen for follow-up 2 days ago and his primary care physician's office and routine labs were ordered. Upon review of his labs as noted his creatinine had gone up to 1.8. He was called by his PCPs office and directed to go to the emergency department for IV fluids. During his visit patient complaining of somewhat worsening cognition. Today per the family patient is more confused than his usual baseline. Report the patient is usually able to perform activities of daily living without issue. Within the last 24 hours patient has declined substantially. At this time records review and present family. Patient's reports that the patient had missed his morning doses of lactulose and took them later in the evening because he forgot to take him to work. Emergency department his vital signs are notable for hypertension. He was treated with 1 L of normal saline, rifaximin and 20 g of lactulose. Hospital Course Castro Flores is a 61-year-old man with past medical history significant for SAPP cirrhosis with history of esophageal varices and hepatic encephalopathy, coronary artery disease status post CABG, insulin using uncontrolled type II diabetes who presents to the hospital emergency department due to direction from his provider for IV fluids # Decompensated SAPP cirrhosis complicated by worsening hepatic encephalopathy with thrombocytopenia, present on admission -Clinically resolved overnight after hydration and drop in ammonia level -Continued lactulose, rifaximin -Held furosemide # Acute kidney injury, present on admission -Likely due to prerenal azotemia. -Improved with IV fluids. # Severe asymptomatic hypertension, present on admission -Improved # CAD s/p CABG -Continued lovastatin and metoprolol # Diabetes Mellitus Type 2, insulin using, uncontrolled, complicated by neuropathy -Held outpatient by mouth medication -Continued with outpatient regiment, reduced by 30%. -Continued gabapentin # Aortic stenosis status post TAVR By day of discharge patient denies any discomfort and eager to go home. patient' s reports that patient is back to baseline and also wishes for patient to be discharged. Exam Vital Signs (Last) Date Time Temp Pulse Resp B/P Pulse Ox O2 Delivery O2 Flow Rate FiO2 01/31/17 11:57 83 01/31/17 05:02 36.0 18 145/79 98 Room Air Exam Awake, alert, oriented x 3. Lungs CTA bilat CV: RRR Test 01/30/17 11:50 01/31/17 08:03 01/31/17 09:39 Lipase 18U/L (13-60) Hold Mcguire Top Tube Received (Received) White Blood Count 4.1th/mm3 (3.8-10.1) Red Blood Count 3.64mil/mm3 (4.40-5.80) Hemoglobin 11.4g/dL (13.8-17.2) Hematocrit 32.3% (41.0-50.0) Mean Corpuscular Volume 88.7fL (81-100) Mean Corpuscular Hemoglobin 31.3pg (27.0-35.0) Mean Corpuscular Hemoglobin Concent 35.3% (32.0-37.0) Red Cell Distribution Width 15.4% (12.3-15.4) Platelet Count 40bil/L (150-400) Neutrophils (%) (Auto) 60.2% (40-74) Lymphocytes (%) (Auto) 22.2% (14-46) Monocytes (%) (Auto) 11.7% (4-12) Eosinophils (%) (Auto) 5.4% (0-5) Basophils (%) (Auto) 0.5% (0-3) Prothrombin Time 13.6sec (8.1-12.5) Prothromb Time International Ratio 1.26ratio Activated Partial Thromboplast Time 29.5sec (22.8-33.0) Sodium Level 139mEq/L (134-144) Potassium Level 4.2mEq/L (3.5-5.2) Chloride Level 101mEq/L (97-108) Carbon Dioxide Level 20mmol/L (18-29) Blood Urea Nitrogen 29mg/dL (8-27) Creatinine 1.50mg/dL (0.76-1.27) Estimat Glomerular Filtration Rate 50mL/min (>59) Glucose Level 351mg/dL (60-99) Calcium Level 9.6mg/dL (8.5-10.1) Magnesium Level 1.6mg/dL (1.6-2.6) Total Bilirubin 1.2mg/dL (0.0-1.2) Aspartate Amino Transf (AST/SGOT) 33U/L (0-50) Alanine Aminotransferase (ALT/SGPT) 28U/L (0-44) Alkaline Phosphatase 130U/L (25-160) Ammonia 135ug/dL (18-53) Total Protein 6.3g/dL (6.4-8.4) Albumin 3.0g/dL (3.4-5.0) Urine Color Yellow (YELLOW) Urine Appearance Clear (CLEAR,HAZY) Urine pH 5.5 (5.0-8.0) Urine Specific [place] 1.020 (1.003-1.035) Urine Protein Negativemg/dL (NEG,TRACE) Urine Glucose (UA) 1000mg/dL (NEGATIVE) Urine Ketones Negativemg/dL (NEGATIVE) Urine Occult Blood Trace (NEGATIVE) Urine Nitrite Negative (NEGATIVE) Urine Bilirubin Negative (NEGATIVE) Urine Urobilinogen Normalmg/dL (NORMAL) Urine Leukocyte Esterase Negative (NEGATIVE) Urine RBC 0-2/hpf (0-2) Urine WBC 0-5/hpf (0-5) Urine Epithelial Cells Occasional/hpf (NONE-MOD) Urine Crystals None seen (NONE SEEN) Urine Bacteria None/hpf (NONE-FEW) Urine Hyaline Casts None/lpf (NONE) Urine Granular Casts None seen (NONE SEEN) Urine Waxy Casts None seen (NONE SEEN) Urine Red Blood Cell Casts None seen (NONE SEEN) Urine White Blood Cell Casts None seen (NONE SEEN) Urine Mucus None seen (None Seen) Urine Trichomonas None seen (NONE SEEN) Urine Yeast None (NONE SEEN) Urinalysis Comment None Urine Culture Reflexed Not indicated Discharge Medications Discharge Medications Esomeprazole Magnesium (Nexium) 40 Mg Capsule.dr 40 MG PO BID (Reported) Gabapentin (Gabapentin) 600 Mg Tablet 600 MG PO HS (Reported) Insulin Regular, Human (HUMulin-R U100 Insulin Vial) 100 Unit/1 Ml Vial 40 UNITS SUBQ bid IN AM AND DINNER (Reported) Lactulose (Lactulose) 20 Gm/30 Ml Solution 20 GM PO 07,10,13,16 Prescribed by: BASILIO ESCUDERO DO Lisinopril (Lisinopril) 40 Mg Tablet 40 MG PO DAILY Prescribed by: BASILIO ESCUDERO DO Lovastatin (Lovastatin) 10 Mg Tablet 10 MG PO Q48 HRS (Reported) Metformin ER (Fortamet) 1,000 Mg Tab.er.24 1,000 MG PO BID (Reported) Metoprolol Succinate ER (Metoprolol Succinate ER) 50 Mg Tab.er.24h 100 MG PO DAILY Prescribed by: BASILIO ESCUDERO DO NPH, Human Insulin Isophane (HUMulin-N U100 Insulin Vial) 100 Unit/1 Ml Vial 40 UNITS SUBQ BID IN AM AND HS (Reported) As needed Ondansetron ODT (Zofran ODT) 4 Mg Tablet 4 MG PO Q4H PRN PRN For Nausea Prescribed by: INOCENCIA NOEL MD Promethazine HCl (Phenergan) 25 Mg Supp.rect 12.5 MG RC TID PRN PRN prn Prescribed by: BASILIO ESCUDERO DO Rifaximin (Xifaxan) 550 Mg Tablet 550 MG PO BID PRN PRN For Agitation (Reported ) Patient uses this with lactulose 20mg PRN for SX of HE Followup Plan Disposition: Home Follow-up plan 1. Followup with your primary care provider within one week and to address further management of diabetes. 2. Followup with your real estate developer as previously planned. Discharge Diet: Low fat, Low Sodium, Heart Healthy, Diabetic Discharge Activity: No restrictions Patient Instructions Seek immediate medical attention if any new or worsening signs or symptoms occur. Follow-up Provider: Patt Dutta MD Time spent 35 min copies to: Patt Dutta MD, Masoud Jan 31, 2017 16:20
== END 2017-01-31 12:26 | disposition home or self-care (01) | DRG 442 ==
LOC: SED 11:03 → MPC 13:58
PROVIDERS: ADMIT Internal Medicine; ATTEND Internal Medicine
DX: K72.00 Acute and subacute hepatic failure without coma (principal); N17.9 Acute kidney failure, unspecified; I25.10 Atherosclerotic heart disease of native coronary artery without angina pectoris; K74.69 Other cirrhosis of liver; E11.40 Type 2 diabetes mellitus with diabetic neuropathy, unspecified; E11.65 Type 2 diabetes mellitus with hyperglycemia; E86.0 Dehydration; I10 Essential (primary) hypertension; T47.3X6A Underdosing of saline and osmotic laxatives, initial encounter; D69.6 Thrombocytopenia, unspecified; Z95.2 Presence of prosthetic heart valve; Z95.1 Presence of aortocoronary bypass graft; Z79.4 Long term (current) use of insulin; Z91.138 Patient's unintentional underdosing of medication regimen for other reason